=== PATIENT | male | born 1975 | race Caucasian/White ===

== ENCOUNTER 2021-03-17 23:15 | Inpatient (IN) ==
[2021-03-17] MEDS ORDERED: MULTI-VITAMIN INFUSION 10 ML, THIAMINE HCL 100 MG, FOLIC ACID 1 MG in SODIUM CHLORIDE 0... IV ONE (23:24)
--- NOTE | 2021-03-17 23:29 | Emergency Department Note ---
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 mg/ Folic Acid 1 mg/Sodium Chloride 1,011.2 mls @ 1,011.2 mls/hr IV .Q1H ONE Stop: 03/18/21 00:23 Last Infusion: 03/18/21 01:37 Dose: 0 mls/hr Documented by: [id number] Admin: 03/18/21 00:30 Dose: 1,011.2 mls/hr Documented by: [id number] Acetylcysteine 15,000 mg/ (Dextrose) 275 mls @ 200 mls/hr IV ONCE ONE Stop: 03/18/21 03:52 Last Infusion: 03/18/21 04:48 Dose: 0 mls/hr Documented by: [id number] Admin: 03/18/21 03:02 Dose: 200 mls/hr Documented by: [id number] Acetylcysteine 5,000 mg/ (Dextrose) 525 mls @ 125 mls/hr IV ONCE ONE Stop: 03/18/21 07:41 Last Infusion: 03/18/21 08:53 Dose: 0 mls/hr Documented by: [id number] Admin: 03/18/21 04:45 Dose: 125 mls/hr Documented by: [id number] Acetylcysteine 10,000 mg/ (Dextrose) 1,050 mls @ 62.5 mls/hr IV ONCE ONE Stop: 03/19/21 00:20 Last Infusion: 03/18/21 21:56 Dose: 0 mls/hr Documented by: [id number] Admin: 03/18/21 08:39 Dose: 62.5 mls/hr Documented by: [id number] Potassium Chloride 40 meq/ (Lactated Ringer's) 1,020 mls @ 150 mls/hr IV .Q6H48M ONE Stop: 03/18/21 09:51 Last Admin: 03/18/21 05:50 Dose: Not Given Documented by: [id number] Phytonadione 5 mg/ Sodium (Chloride) 50.5 mls @ 101 mls/hr IV ONE ONE Stop: 03/18/21 05:59 Last Infusion: 03/18/21 06:57 Dose: 0 mls/hr Documented by: [id number] Admin: 03/18/21 06:14 Dose: 101 mls/hr Documented by: [id number] Albumin Human (Albumin 25%) 12.5 gm in 50 mls @ 50 mls/hr IV Q1H ELIZABETH Stop: 03/18/21 07:44 Last Infusion: 03/18/21 08:53 Dose: 0 mls/hr Documented by: [id number] Admin: 03/18/21 07:46 Dose: 50 mls/hr Documented by: [id number] Infusion: 03/18/21 07:40 Dose: 50 mls/hr Documented by: [id number] Admin: 03/18/21 06:40 Dose: 50 mls/hr Documented by: [id number] Magnesium Sulfate/Dextrose (Magnesium Sulfate / D5w) 1 gm in 100 mls @ 50 mls/hr IV Q2H ELIZABETH Stop: 03/18/21 11:48 Last Infusion: 03/18/21 13:53 Dose: 0 mls/hr Documented by: [id number] Admin: 03/18/21 11:41 Dose: 50 mls/hr Documented by: [id number] Infusion: 03/18/21 11:41 Dose: 50 mls/hr Documented by: [id number] Admin: 03/18/21 09:45 Dose: 50 mls/hr Documented by: [id number] Infusion: 03/18/21 09:45 Dose: 50 mls/hr Documented by: [id number] Admin: 03/18/21 07:46 Dose: 50 mls/hr Documented by: [id number] Ceftriaxone Sodium 2,000 mg/ (Dextrose) 70 mls @ 140 mls/hr IV NOW ONE Stop: 03/18/21 06:59 Last Infusion: 03/18/21 07:46 Dose: 0 mls/hr Documented by: [id number] Admin: 03/18/21 07:16 Dose: 140 mls/hr Documented by: [id number] Albumin Human (Albumin 25%) 12.5 gm in 50 mls @ 50 mls/hr IV Q1H ELIZABETH Stop: 03/19/21 05:14 Last Infusion: 03/19/21 05:34 Dose: 0 mls/hr Documented by: [id number] Admin: 03/19/21 04:35 Dose: 50 mls/hr Documented by: [id number] Infusion: 03/19/21 04:35 Dose: 50 mls/hr Documented by: [id number] Admin: 03/19/21 03:57 Dose: 50 mls/hr Documented by: [id number] Ioversol (Optiray 320 100ml) 94 ml IV ONCE ONE Stop: 03/18/21 03:50 Last Admin: 03/18/21 03:49 Dose: 94 ml Documented by: [id number] Potassium Chloride (Potassium Chloride Crtab 20 Meq Tabcr) 40 meq PO NOW STA Stop: 03/18/21 03:47 Last Admin: 03/18/21 04:30 Dose: 40 meq Documented by: [id number] Discharge Plan Visit Data Chief Complaint: Illness Stated Complaint: ALCOHOL USE/LIVER FAILURE/COMBATIVE AT TIMES ED Provider: Vega Urbina Discharge Problem: Decompensated hepatic cirrhosis, Alcoholic hepatitis Patient Disposition: Admitted As Inpatient Discharge Instructions Interventions: ED Discharge Assessment Last Done: 03/18/21 05:46
[2021-03-17 23:49] LABS: Basophils # (auto) 0.08 K/uL (0-0.2); Basophils % (auto) 0.5 %; Eosinophils # (auto) 0.11 K/uL (0-0.5); Eosinophils % (auto) 0.7 %; Hematocrit (blood only) 38.5 % (42-52); Hemoglobin 13.5 g/dL (14.0-18.0); Immature Granulocytes # (auto) 0.06 K/uL (0.00-0.02); Immature Granulocytes % (auto) 0.4 %; Lymphocytes # (auto) 1.96 K/uL (1.2-3.4); Lymphocytes % (auto) 12.2 %; Mean Corpuscular Hemoglobin 33.8 pg (25-34); Mean Corpuscular Hgb Conc 35.1 g/dL (32-36); Mean Corpuscular Volume 96.5 fL (80-100); Mean Platelet Volume 11.6 fL (7.4-10.4); Monocytes # (auto) 2.46 K/uL (0.11-0.59); Monocytes % (auto) 15.3 %; Neutrophils # (auto) 11.38 K/uL (1.4-6.5); Neutrophils % (auto) 70.9 %; Platelet Count 190 K/uL (130-400); RDW Standard Deviation 73.7 fL (36.4-46.3); Red Blood Count 3.99 M/uL (4.7-6.1); White Blood Count 16.05 K/uL (4.8-10.8)
[2021-03-18 00:07] LABS: INR 1.7 (0.9-1.1); Partial Thromboplastin Ratio 1.6; Partial Thromboplastin Time 42.7 Seconds (21.0-31.0); Prothrombin Time 16.7 Seconds (9.0-12.0)
[2021-03-18 00:13] LABS: Alanine Aminotransferase 45 U/L (12-78); Albumin Level 1.9 gm/dl (3.4-5.0); Aspartate Aminotransferase 248 U/L (15-37); BUN Creatinine Ratio 5.5 (10-20); Blood Urea Nitrogen 4 mg/dl (7-18); Calcium 7.5 mg/dl (8.5-10.1); Carbon Dioxide 22 mmol/L (21-32); Chloride 95 mmol/L (98-107); Creatinine Clr Calc Pharmacy 153.2 ml/min; Est GFR (African American) 129.8 ml/min; Glucose 121 mg/dl (70-99); Lipase 457 U/L (73-393); Magnesium 1.4 mg/dl (1.8-2.4); Potassium 3.3 mmol/L (3.5-5.1); Sodium 130 mmol/L (136-145)
[2021-03-18 00:18] LABS: Anisocytosis Present; Pappenheimer Bodies 1+; Target Cells 1+
[2021-03-18 00:21] LABS: Alkaline Phosphatase 427 U/L (45-117); Total Protein 7.8 gm/dl (6.4-8.2); Troponin I < 0.015 ng/ml (0-0.045)
[2021-03-18 00:32] LABS: Bilirubin Direct 14.8 mg/dl (0-0.2)
[2021-03-18] MEDS ORDERED: AcetylCYSTEINE 15,000 MG in DEXTROSE 5% 200 ML IV ONE (02:28)
[2021-03-18] MEDS ORDERED: AcetylCYSTEINE IV 21 HR REGIMEN (>40KG) IV STA (02:28)
[2021-03-18 02:42] LABS: Appearance Urine Cloudy (Clear); Color Urine Brown; Specific Gravity Urine 1.014 (1.000-1.030)
[2021-03-18 02:44] LABS: Bacteria Urine 1+ (Negative); RBC Urine 0-4 /hpf (0-4)
[2021-03-18] MEDS ORDERED: POTASSIUM CHLORIDE 40 MEQ in LACTATED RINGER'S 1,000 ML IV ONE (03:04)
[2021-03-18] MEDS ORDERED: AcetylCYSTEINE 5,000 MG in DEXTROSE 5% 500 ML IV ONE (03:28)
[2021-03-18] MEDS ORDERED: POTASSIUM CHLORIDE CRTAB 20 MEQ TABCR PO STA (03:46)
--- NOTE | 2021-03-18 03:46 | History & Physical Report ---
Date of Service March 18, 2021 Assessment & Plan (1) Ascites: Plan: Possible SBP, possible sepsis Secondary to decompensated cirrhosis likely secondary to alcoholism (No prior knowledge of cirrhosis diagnosis as per patient. Patient claims he was told he just a fatty liver. ) Hyponatremia secondary to hypovolemia, alcohol use HTN, BP on the lower side history pancreatitis/pancreatic necrosis as per patient asthma, stable as per patient mood disorder, suboptimal although patient denies suicidality Anemia, possibly chronic (hemoglobin noted to be 13 last year) Coagulopathy from chronic liver disease Hypokalemia secondary to poor p.o. intake Hyperglycemia rule out DM past tobacco abuse Medical telemetry given propensity for alcohol withdrawal CS, check lactic acid, Ceftriaxone, albumin for possible SBP Diagnostic/therapeutic paracentesis GI consult Re: Ascites, decompensated cirrhosis Careful correction of sodium, hyponatremia work-up Hold patient's propranolol, decrease Amlodipine dose for now given episodic hypotension Replace potassium Check hemoglobin A1c ELMER S, DT precautions DVT prophylaxis with SCDs Re: Intermittent epistaxis Full code Patient requesting for referral to be updated of plan of care. Ms. Wendy Matute, contact #[phone]. Text document was generated using [facility] voice recognition software. It may contain grammatical or spelling errors. Kindly contact undersigned for clarification of any documentation item in question. History of Present Illness Chief Complaint: Abdominal pain/distention Primary Care Provider: [facility], [place], [place] History obtained from patient and records. Medical history significant for HTN, fatty liver as per patient, history pancreatitis/pancreatic necrosis as per patient, alcohol abuse, asthma, mood disorder, past tobacco abuse. Patient is a resident of [place] who is in town for the week with his girlfriend. 3 [facility] ER visits last year for alcoholic intoxication. 1 month history of increasing abdominal distention/fluid retention, intermittent achy abdominal pain/hiccuping, no fever, no chills. Alternating constipation/diarrhea. Skin noted to be yellow and urine noted to be orange by patient. Patient denies headache, chest pain, S OB. Intermittent epistaxis episodes at home. Patient denies black/bloody stools. Stool somewhat pale as per patient. Patient denies inordinate Tylenol intake. EMS summoned to patient's home because of increased agitation as per account. Patient brought to the ER for evaluation. GI specialist lightning protection installer recommended transfer to tertiary center for possible liver failure. [facility] [place] GI specialist recommended keeping patient at [facility] and treatment for possible acetaminophen toxicity. Acetadote protocol initiated at the ER. 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 Allergies Allergy/AdvReac Type Severity Reaction Status Date / Time morphine AdvReac Unknown Verified 02/08/20 06:21 Home Medications Medication Instructions Recorded Confirmed Type amlodipine 10 mg tablet 10 mg PO DAILY 02/08/20 03/17/21 History benzonatate 100 mg capsule 100 mg PO TID PRN 02/08/20 03/17/21 History bupropion HCl (smoking deter) 150 150 mg PO BID 02/08/20 03/17/21 History mg tablet,12 hr sustained-release(smoking deterrent) buspirone 30 mg tablet 30 mg PO TID 02/08/20 03/17/21 History gabapentin 400 mg capsule 400 mg PO TID 02/08/20 03/17/21 History montelukast 10 mg tablet 10 mg PO HS 02/08/20 03/17/21 History thiamine HCl (vitamin B1) 100 mg 100 mg PO DAILY 02/08/20 03/17/21 History tablet albuterol sulfate 90 mcg/actuation 1 puff INHALATION Q6 PRN 03/17/21 03/17/21 History aerosol inhaler cetirizine 10 mg tablet 10 mg PO DAILY 03/17/21 03/17/21 History cholecalciferol (vitamin D3) 50 50 mcg PO DAILY 03/17/21 03/17/21 History mcg (2,000 unit) capsule cyanocobalamin (vitamin B-12) 100 100 mcg PO DAILY 03/17/21 03/17/21 History mcg tablet cyclobenzaprine 10 mg tablet 10 mg PO Q8 PRN 03/17/21 03/17/21 History fluticasone 250 mcg-salmeterol 50 1 ea INHALATION Q12 03/17/21 03/17/21 History mcg/dose blistr powdr for inhalation fluticasone propionate 50 2 spray INTRANASAL DAILY 03/17/21 03/17/21 History mcg/actuation nasal spray,suspension folic acid 1 mg tablet 1 mg PO DAILY 03/17/21 03/17/21 History hydroxyzine pamoate 50 mg capsule 50 mg PO TID 03/17/21 03/17/21 History magnesium oxide 400 mg (241.3 mg 400 mg PO BID 03/17/21 03/17/21 History magnesium) tablet mirtazapine 15 mg tablet 15 mg PO HS 03/17/21 03/17/21 History multivitamin (Daily-Ricci) 1 tab PO DAILY 03/17/21 03/17/21 History pantoprazole 40 mg tablet,delayed 40 mg PO DAILY 03/17/21 03/17/21 History release propranolol 10 mg tablet 10 mg PO DAILY 03/17/21 03/17/21 History Past Med/Surg History Medical History (Updated 03/18/21 @ 08:16 by Arpan Elmore MD) Anxiety Asthma Depression History of coma History of pneumonia Pancreatic necrosis Social History Smoking Status: Unknown if ever smoked Tobacco Type: Cigarettes Hx Alcohol Use: Yes Alcohol type: beer and hard liquor Preferred Language: Serbian Communication Ability: Effective Sap Bi Developer Required: No Beliefs That Will Affect Care: None Current Living Situation: Significant Other Current Living Situation Comment: Lives w/ significant other Feels Safe at Home: Yes Safety Concerns: Feels Safe At This Time Assistive Devices: None Review of Systems Review of Systems: As per HPI, all 10 systems reviewed, all other ROS negative Physical Exam Physical Exam: GENERAL: Slightly uncomfortable, pleasant, obese, episodic hiccuping, alcoholic fetor, no respiratory distress SKIN: Jaundice,, warm, abrasions over upper and lower extremities HEENT: Pale palpebral conjunctivae, no ptosis, dry buccal mucosa NECK : Supple, short neck, no tenderness CHEST : Decreased breath sounds,, no tenderness HEART : RRR, no obvious murmurs ABDOMEN: distention, fluid wave, central abdominal tenderness EXTREMITIES : Minimal LE swelling, no LE tenderness, no other conspicuous deformities noted NEUROLOGIC : Coherent, no facial asymmetry, no other gross focality Results & Data Results & Data ([facility]) Vital Signs (Past 12 Hours) Vital Signs Temp Pulse Resp BP Pulse Ox 03/18/21 02:00 71 23 115/77 93 03/18/21 00:30 71 22 114/82 94 03/18/21 00:25 97 03/17/21 23:18 36.5 C 74 17 118/91 91 Laboratory Results Laboratory Results WBC 16.05 K/uL (4.8-10.8) H 03/17/21 23:32 RBC 3.99 M/uL (4.7-6.1) L 03/17/21 23:32 Hgb 13.5 g/dL (14.0-18.0) L 03/17/21 23:32 Hct 38.5 % (42-52) L 03/17/21 23:32 MCV 96.5 fL (80-100) 03/17/21 23:32 MCH 33.8 pg (25-34) 03/17/21 23: MCHC 35.1 g/dL (32-36) 03/17/21 23: RDW Std Deviation 73.7 fL (36.4-46.3) H 03/17/21 23:32 RDW Coeff of Bulmaro 21.0 % (11.5-14.5) H 03/17/21 23:32 Plt Count 190 K/uL (130-400) 03/17/21 23:32 MPV 11.6 fL (7.4-10.4) H 03/17/21 23:32 Immature Gran % (Auto) 0.4 % 03/17/21 23:32 Neut % (Auto) 70.9 % 03/17/21 23:32 Lymph % (Auto) 12.2 % 03/17/21 23:32 [place] % (Auto) 15.3 % 03/17/21 23:32 Eos % (Auto) 0.7 % 03/17/21 23:32 Baso % (Auto) 0.5 % 03/17/21 23:32 Neut # (Auto) 11.38 K/uL (1.4-6.5) H 03/17/21 23:32 Lymph # (Auto) 1.96 K/uL (1.2-3.4) 03/17/21 23:32 [place] # (Auto) 2.46 K/uL (0.11-0.59) H 03/17/21 23:32 Eos # (Auto) 0.11 K/uL (0-0.5) 03/17/21 23:32 Baso # (Auto) 0.08 K/uL (0-0.2) 03/17/21 23:32 Immature Gran # (Auto) 0.06 K/uL (0.00-0.02) H 03/17/21 23:32 Anisocytosis Present 03/17/21 23:32 Pappenheimer Bodies 1+ 03/17/21 23:32 Target Cells 1+ 03/17/21 23:32 PT 16.7 Seconds (9.0-12.0) H 03/17/21 23:32 INR 1.7 (0.9-1.1) H 03/17/21 23:32 APTT 42.7 Seconds (21.0-31.0) H 03/17/21 23:32 PTT Ratio 1.6 03/17/21 23:32 Sodium 130 mmol/L (136-145) L 03/17/21 23:32 Potassium 3.3 mmol/L (3.5-5.1) L 03/17/21 23:32 Chloride 95 mmol/L (98-107) L 03/17/21 23:32 Carbon Dioxide 22 mmol/L (21-32) 03/17/21 23:32 Anion Gap 13.0 (3-11) H 03/17/21 23:32 BUN 4 mg/dl (7-18) L 03/17/21 23:32 Creatinine 0.73 mg/dl (0.6-1.4) 03/17/21 23:32 Est Cr Clr Drug Dosing 153.2 ml/min 03/17/21 23:32 Est GFR ( Amer) 129.8 ml/min 03/17/21 23:32 Est GFR (Non-Af Amer) 112.0 ml/min 03/17/21 23:32 BUN/Creatinine Ratio 5.5 (10-20) L 03/17/21 23:32 Glucose 121 mg/dl (70-99) H 03/17/21 23:32 Osmolality 355 mOsm/kg (280-300) H* 03/17/21 23:32 Calcium 7.5 mg/dl (8.5-10.1) L 03/17/21 23:32 Magnesium 1.4 mg/dl (1.8-2.4) L 03/17/21 23:32 Total Bilirubin 19.0 mg/dl (0.2-1) H 03/17/21 23:32 Direct Bilirubin 14.8 mg/dl (0-0.2) H 03/17/21 23:32 AST 248 U/L (15-37) H 03/17/21 23:32 ALT 45 U/L (12-78) 03/17/21 23:32 Alkaline Phosphatase 427 U/L (45-117) H 03/17/21 23:32 Ammonia 22.3 umol/L (11-32) 03/17/21 23:39 Troponin I < 0.015 ng/ml (0-0.045) 03/17/21 23:32 Total Protein 7.8 gm/dl (6.4-8.2) 03/17/21 23:32 Albumin 1.9 gm/dl (3.4-5.0) L 03/17/21 23:32 Lipase 457 U/L (73-393) H 03/17/21 23:32 Urine Color Brown 03/18/21 02:20 Urine Appearance Cloudy (Clear) A 03/18/21 02:20 Urine pH (4.5-7.5) 03/18/21 02:20 Ur Specific [place] 1.014 (1.000-1.030) 03/18/21 02:20 Urine Protein (Negative) 03/18/21 02:20 Urine Glucose (UA) (Negative) 03/18/21 02:20 Urine Ketones (Negative) 03/18/21 02:20 Urine Blood (Negative) 03/18/21 02:20 Urine Nitrite (Negative) 03/18/21 02:20 Urine Bilirubin (Negative) 03/18/21 02:20 Urine Urobilinogen (Negative) 03/18/21 02:20 Ur Leukocyte Esterase (Negative) 03/18/21 02:20 Urine RBC 0-4 /hpf (0-4) 03/18/21 02:20 Urine WBC 10-30 /hpf (0-5) H 03/18/21 02:20 Ur Epithelial Cells 10-20 /lpf (0-5) H 03/18/21 02:20 Urine Bacteria 1+ (Negative) H 03/18/21 02:20 Salicylates Cancelled 03/17/21 23:32 Acetaminophen Cancelled 03/17/21 23:32 Ethyl Alcohol mg/dL 348.1 mg/dl (0-3) H 03/17/21 23:32 COVID-19 Eval Order Covid19 at [facility] 03/18/21 00:30 SARS-CoV-2 (PCR) NEGATIVE (Negative) 03/18/21 00:30 Diagnostic Findings Chest x-ray as per my interpretation cardiomegaly, atelectasis CT abdomen pelvis initial read: Enlarged, fattyliver, somewhat nodular contour. Correlate for cirrhosis. Moderate amount of ascites. 3.5 cmheterogeneous pancreatic tail nodule. Correlate with priors if available or consider pancreatic protocol MR. Mildlyenlarged upper abdominal lymph nodes. Normal appendix. Colonicwall thickening of the cecumand ascending colon. Mayrepresent colitis. Colonic diverticulosis. Querywall thickening of the duodenum. Mayrepresent duodenitis. Small hiatal hernia. No free air EKG as per my interpretation: Rate 70, NSR, LAD, LAFB, T wave abnormalities inferior leads
[2021-03-18] MEDS ORDERED: OPTIRAY 320 100ml IV ONE (03:49)
[2021-03-18 05:07] LABS: Amphetamines+Metham, Urine Neg (Neg); Barbiturates, Urine Neg (Neg); Benzodiazepine, Urine Neg (Neg); Cocaine, Urine Neg (Neg); MDMA (Ecstacy), Urine Pos (Neg); Methadone, Urine Neg (Neg); Opiate, Urine Neg (Neg); Phencyclidine, Urine Neg (Neg)
[2021-03-18] MEDS ORDERED: cefTRIAXone SODIUM 1,000 MG/50 ML BAG IV STA (05:23)
[2021-03-18] MEDS ORDERED: PHYTONADIONE 5 MG in SODIUM CHLORIDE 0.9% 50 ML IV ONE (05:30)
[2021-03-18] MEDS ORDERED: LORazepam 1 MG/2 ML VIAL IV PRN (05:49)
[2021-03-18] MEDS ORDERED: ATIVAN IV ALCOHOL WITHDRAWL IV PRN (05:49)
[2021-03-18] MEDS ORDERED: oxyCODONE HCL IR 5 MG TAB (IMMEDIATE RELEASE) PO PRN (05:49)
[2021-03-18] MEDS ORDERED: PROMETHAZINE HCL 12.5 MG in SODIUM CHLORIDE 0.9% 50 ML IV PRN (05:49)
[2021-03-18] MEDS ORDERED: LORazepam 3 MG/6 ML VIAL IV PRN (05:49)
[2021-03-18] MEDS ORDERED: cefTRIAXone SODIUM 2,000 MG in DEXTROSE 5% 50 ML IV ONE (06:30)
[2021-03-18] MEDS: ALBUMIN 25% 12.5 GM/50 ML VIAL IV SCH ×4 (06:40→17:09)
[2021-03-18 07:23] LABS: Basophils # (auto) 0.04 K/uL (0-0.2); Basophils % (auto) 0.4 %; Eosinophils # (auto) 0.05 K/uL (0-0.5); Eosinophils % (auto) 0.5 %; Hematocrit (blood only) 40.5 % (42-52); Hemoglobin 14.3 g/dL (14.0-18.0); Immature Granulocytes # (auto) 0.04 K/uL (0.00-0.02); Immature Granulocytes % (auto) 0.4 %; Lymphocytes # (auto) 1.16 K/uL (1.2-3.4); Lymphocytes % (auto) 10.8 %; Mean Corpuscular Hemoglobin 34.3 pg (25-34); Mean Corpuscular Hgb Conc 35.3 g/dL (32-36); Mean Corpuscular Volume 97.1 fL (80-100); Mean Platelet Volume 11.5 fL (7.4-10.4); Monocytes # (auto) 1.26 K/uL (0.11-0.59); Monocytes % (auto) 11.7 %; Neutrophils # (auto) 8.18 K/uL (1.4-6.5); Neutrophils % (auto) 76.2 %; Platelet Count 167 K/uL (130-400); RDW Coefficient of Variation 20.9 % (11.5-14.5); RDW Standard Deviation 73.1 fL (36.4-46.3); Red Blood Count 4.17 M/uL (4.7-6.1); White Blood Count 10.73 K/uL (4.8-10.8)
[2021-03-18] MEDS ORDERED: AcetylCYSTEINE 10,000 MG in DEXTROSE 5% 1,000 ML IV ONE (07:28)
[2021-03-18] MEDS: MAGNESIUM SULFATE / D5W 1 GM/100 ML BAG IV SCH ×3 (07:46→11:41)
[2021-03-18 07:56] LABS: Anisocytosis Present; Target Cells 1+
[2021-03-18] MEDS: FLUTICASONE PROPIONATE NA SPR 16 GM BTL SCH (07:57)
[2021-03-18] MEDS: FLUTICASONE/VILANTEROL 200/25MCG 14 PUFFS/INHALER INH SCH (07:57)
[2021-03-18] MEDS: amLODIPine BESYLATE 5 MG TAB PO SCH (07:57)
[2021-03-18] MEDS: busPIRone 15 MG TAB PO SCH ×3 (07:58→19:51)
[2021-03-18] MEDS: CYANOCOBALAMIN (VITAMIN B-12) 100 MCG TABLET PO SCH (07:58)
[2021-03-18] MEDS: GABAPENTIN 400 MG CAP PO SCH ×3 (07:58→19:51)
[2021-03-18] MEDS: FOLIC ACID 1 MG TAB PO SCH (07:58)
[2021-03-18] MEDS: CETIRIZINE HCL 10 MG TABLET PO SCH (07:58)
[2021-03-18] MEDS: MULTIVITAMIN TAB PO SCH (07:59)
[2021-03-18] MEDS: THIAMINE HCL 100 MG TAB PO SCH (07:59)
[2021-03-18] MEDS: buPROPion SR 150 MG TABCR PO SCH ×2 (07:59→19:51)
[2021-03-18] MEDS: PANTOprazole 40 MG TAB PO SCH (07:59)
[2021-03-18 08:06] LABS: Alanine Aminotransferase 58 U/L (12-78); Albumin Level 2.1 gm/dl (3.4-5.0); Alkaline Phosphatase 401 U/L (45-117); Aspartate Aminotransferase 251 U/L (15-37); Bilirubin,Total 20.9 mg/dl (0.2-1); Blood Urea Nitrogen 4 mg/dl (7-18); Calcium 7.9 mg/dl (8.5-10.1); Carbon Dioxide 24 mmol/L (21-32); Chloride 96 mmol/L (98-107); Glucose 123 mg/dl (70-99); Sodium 135 mmol/L (136-145)
--- NOTE | 2021-03-18 08:16 | CT Scan Report ---
ABDOMEN AND PELVIS CT WITH IV CONTRAST CT DOSE: 1155.35 mGy.cm HISTORY: Generalized abd pain/distension TECHNIQUE: Multiaxial CT images of the abdomen and pelvis were performed following the use of intrave nous contrast. A dose lowering technique was utilized adhering to the principles of ALARA. COMPARISON STUDY: None. FINDINGS: Small fat-containing left femoral hernia. The bladder is distended. The prostate gland is m ildly enlarged. Small amount of ascites. Enlarged and fatty liver. Nodular contour to the liver consi stent with mild cirrhosis. No hepatic or splenic masses. The gallbladder, adrenal glands, and kidneys are unremarkable. The main portal vein is patent. Normal caliber abdominal aorta. A few colonic dive rticula. No evidence for acute diverticulitis. No definite bowel wall thickening or obstruction. Ques tion mild edema within the ascending colon is likely due to portal colopathy. Normal appendix. There is a 3.7 cm heterogeneous pancreatic tail lesion. A few bibasilar linear densities consistent with wolfe bsegmental atelectasis. No pneumoperitoneum. No pneumatosis. No fractures within the visualized osseo us structures. IMPRESSION: 1. Enlarged fatty liver with mild cirrhosis. 2. Small amount of ascites. 3. A 3.7 cm heterogeneous pancreatic tail lesion. Follow-up pancreatic MRI with contrast recommended for further evaluation. 4. Mild edema within the proximal colon which is nonspecific but suggests a portal colopathy. Infecti ous or inflammatory colitis is considered less likely but not entirely excluded. ACT 112: Negative or not required by law. Electronically signed by: Angel Servin M.D. 03/18/2021 8:15 AM
[2021-03-18] MEDS ORDERED: amLODIPine BESYLATE 5 MG TAB PO SCH (09:00)
--- NOTE | 2021-03-18 09:51 | XRay Report ---
XR chest 1V portable HISTORY: 45 years-old Male alcoholism COMPARISON: Chest radiograph 02/07/2020, CT abdomen and pelvis 03/18/2021 TECHNIQUE: Supine AP view of the chest FINDINGS: The cardiac silhouette is enlarged. Moderate right hemidiaphragmatic elevation. No pneumothorax, pleu ral effusion or overt pulmonary edema. Mild linear right lung base atelectasis/scarring. Sigmoidal th oracolumbar scoliosis. Degenerative changes of the shoulders and spine. IMPRESSION: 1. Cardiomegaly without pulmonary edema. 2. Right hemidiaphragmatic elevation with linear right lung base atelectasis. ACT 112: Negative or not required by law. The above report was generated using voice recognition software. It may contain grammatical, syntax o r spelling errors. Electronically signed by: Dav Cho M.D. 03/18/2021 9:49 AM
--- NOTE | 2021-03-18 09:58 | Electrocardiogram Report ---
Test Reason : Blood Pressure : / mmHG Vent. Rate : 071 BPM Atrial Rate : 071 BPM P-R Int : 206 ms QRS Dur : 116 ms QT Int : 486 ms P-R-T Axes : 036 -13 -05 degrees QTc Int : 528 ms Poor data quality, interpretation may be adversely affected Normal sinus rhythm Possible Left atrial enlargement Nonspecific ST and T wave abnormality Prolonged QT Abnormal ECG When compared with ECG of 16-AUG-2019 13:03, Vent. rate has decreased BY 36 BPM T wave inversion now evident in Inferior leads QT has lengthened Confirmed by José Miguel Cardenas ([id number]) on 03/18/2021 9:58:21 AM Referred By: REFERRED SELF Confirmed By:José Miguel Cardenas
[2021-03-18] MEDS: LORazepam 2 MG/4 ML VIAL IV PRN ×5 (14:44→21:58)
--- NOTE | 2021-03-18 15:14 | Gastrointestinal Consultation ---
Date of Consultation March 18, 2021 Assessment & Plan (1) Decompensated hepatic cirrhosis: MDF = 42. Ideally would treat with Prednisone however there is a concern about SBP in view of small ascites and abdominal discomfort, unfortunately he was started on IV ABx and did not have a diagnostic paracentesis. Please arrange for a diagnostic tap tomorrow. If normal, may consider starting Prednisolone. Monitor INR, if >2 then give PO Vitamin K x 3 days. Needs EUS as OP in 4 weeks to evaluate the panc lesion however this is likely a WON/necroma related to prior pancreatitis. Complete NAC. Nutritional support. Alcohol cessation.Thiamin and folic acid. (2) Alcoholic hepatitis: (3) Abnormal LFTs: (4) Pancreatic mass: History of Present Illness Reason for Consultation: Alcoholic hepatitis Attending Physician: Yeyo Fox MD History of Present Illness 45 years old male patient with chronic heavy alcohol use for many years presented with alcohol intoxication and found to have elevated LFTs hence GI consulted. He reports gradual increase in abdominal distention recently along with mild abdominal discomfort. No fever or chills, no nausea, vomiting, diarrhea or constipation, no rectal bleeding. Had Hx of necrotizing pancreatitis in the past. He had altered mental status upon arrival to the ED with agitation, unclear if this was related to intoxication or withdrawal or ongoing acute liver failure, he was given Ativan and he improved. He was not accepted for transfer to a liver center. Allergies Allergy/AdvReac Type Severity Reaction Status Date / Time morphine AdvReac Unknown Verified 02/08/20 06:21 Home Medications Medication Instructions Recorded Confirmed Type amlodipine 10 mg tablet 10 mg PO DAILY 02/08/20 03/17/21 History benzonatate 100 mg capsule 100 mg PO TID PRN 02/08/20 03/17/21 History bupropion HCl (smoking deter) 150 150 mg PO BID 02/08/20 03/17/21 History mg tablet,12 hr sustained-release(smoking deterrent) buspirone 30 mg tablet 30 mg PO TID 02/08/20 03/17/21 History gabapentin 400 mg capsule 400 mg PO TID 02/08/20 03/17/21 History montelukast 10 mg tablet 10 mg PO HS 02/08/20 03/17/21 History thiamine HCl (vitamin B1) 100 mg 100 mg PO DAILY 02/08/20 03/17/21 History tablet albuterol sulfate 90 mcg/actuation 1 puff INHALATION Q6 PRN 03/17/21 03/17/21 History aerosol inhaler cetirizine 10 mg tablet 10 mg PO DAILY 03/17/21 03/17/21 History cholecalciferol (vitamin D3) 50 50 mcg PO DAILY 03/17/21 03/17/21 History mcg (2,000 unit) capsule cyanocobalamin (vitamin B-12) 100 100 mcg PO DAILY 03/17/21 03/17/21 History mcg tablet cyclobenzaprine 10 mg tablet 10 mg PO Q8 PRN 03/17/21 03/17/21 History fluticasone 250 mcg-salmeterol 50 1 ea INHALATION Q12 03/17/21 03/17/21 History mcg/dose blistr powdr for inhalation fluticasone propionate 50 2 spray INTRANASAL DAILY 03/17/21 03/17/21 History mcg/actuation nasal spray,suspension folic acid 1 mg tablet 1 mg PO DAILY 03/17/21 03/17/21 History hydroxyzine pamoate 50 mg capsule 50 mg PO TID 03/17/21 03/17/21 History magnesium oxide 400 mg (241.3 mg 400 mg PO BID 03/17/21 03/17/21 History magnesium) tablet mirtazapine 15 mg tablet 15 mg PO HS 03/17/21 03/17/21 History multivitamin (Daily-Ricci) 1 tab PO DAILY 03/17/21 03/17/21 History pantoprazole 40 mg tablet,delayed 40 mg PO DAILY 03/17/21 03/17/21 History release propranolol 10 mg tablet 10 mg PO DAILY 03/17/21 03/17/21 History Patient History Medical History (Updated 03/18/21 @ 15:21 by Jeannette Stark MD) Anxiety Asthma Depression History of coma History of pneumonia Pancreatic necrosis Social History Smoking Status: Unknown if ever smoked Tobacco Type: Cigarettes Hx Alcohol Use: Yes Alcohol type: beer and hard liquor Preferred Language: Irish Communication Ability: Effective Unpaid Intern Required: No Beliefs That Will Affect Care: None Current Living Situation: Significant Other Current Living Situation Comment: Lives w/ significant other Feels Safe at Home: Yes Safety Concerns: Feels Safe At This Time Assistive Devices: None Review of Systems Constitutional: no fever, no chills, no fatigue and no weight loss Eyes: no eye pain and no worsening vision Ear, Nose, Mouth, Throat: no tinnitus, no dizziness, no nasal discharge and no epistaxis Respiratory: no cough, no dyspnea, no dyspnea on exertion and no wheezing Cardiovascular: no chest pain, no orthopnea, no palpitations and no edema Gastrointestinal: as per Subjective / HPI Musculoskeletal: no stiffness and no myalgia Neurologic: no localized weakness, no paralysis, no tremor(s) and no headache(s) Endocrine: no polydipsia and no polyuria Hematologic / Lymphatic: no easy bleeding and no night sweats Physical Exam Constitutional: + well hydrated, cooperative and comfortable Eyes: + scleral icterus ENMT: external ear and nose normal, oropharynx normal Neck: normal visual inspection and trachea midline Respiratory: normal respiratory effort, lungs clear to auscultation Auscultation: no wheezes Cardiovascular: RRR, no murmur, no edema Gastrointestinal (Abdomen): Inspection/Auscultation: + abdomen distended and normal bowel sounds Percussion/Palpation: abdomen nontender Musculoskeletal: no cyanosis or clubbing, extremities motor strength 5/5 Skin: no rashes, warm and dry Neurologic: awake; no focal motor deficits Motor/Sensory: no tremor Results & Data ([facility]) Vital Signs (Past 12 Hours) Vital Signs Temp Pulse Pulse Resp BP BP BP 03/18/21 14:49 37 C 105 H 18 110/69 03/18/21 12:07 36.4 C L 81 20 113/74 03/18/21 07:23 83 03/18/21 06:16 37 C 83 18 132/89 03/18/21 05:49 37 C 83 16 132/89 03/18/21 05:47 83 03/18/21 05:00 106/82 03/18/21 04:30 81 24 124/91 03/18/21 03:31 72 28 H 94/69 L Pulse Ox 03/18/21 14:49 94 03/18/21 12:07 93 03/18/21 07:23 03/18/21 06:16 94 03/18/21 05:49 94 03/18/21 05:47 03/18/21 05:00 92 03/18/21 04:30 93 03/18/21 03:31 97 Laboratory Results Laboratory Results - last 24 hr 03/17/21 03/17/21 03/17/21 23:32 23:32 23:32 WBC 16.05 H RBC 3.99 L Hgb 13.5 L Hct 38.5 L MCV 96.5 MCH 33.8 MCHC 35.1 RDW Std Deviation 73.7 H RDW Coeff of Bulmaro 21.0 H Plt Count 190 MPV 11.6 H Immature Gran % (Auto) 0.4 Neut % (Auto) 70.9 Lymph % (Auto) 12.2 [place] % (Auto) 15.3 Eos % (Auto) 0.7 Baso % (Auto) 0.5 Neut # (Auto) 11.38 H Lymph # (Auto) 1.96 [place] # (Auto) 2.46 H Eos # (Auto) 0.11 Baso # (Auto) 0.08 Immature Gran # (Auto) 0.06 H Anisocytosis Present Pappenheimer Bodies 1+ Target Cells 1+ PT 16.7 H INR 1.7 H APTT 42.7 H PTT Ratio 1.6 Sodium 130 L Potassium 3.3 L Chloride 95 L Carbon Dioxide 22 Anion Gap 13.0 H BUN 4 L Creatinine 0.73 Est Cr Clr Drug Dosing 153.2 Est GFR ( Amer) 129.8 Est GFR (Non-Af Amer) 112.0 BUN/Creatinine Ratio 5.5 L Glucose 121 H Estimat Average Glucose Hemoglobin A1c Osmolality Lactate Calcium 7.5 L Magnesium 1.4 L Total Bilirubin 19.0 H Direct Bilirubin 14.8 H AST 248 H ALT 45 Alkaline Phosphatase 427 H Ammonia Troponin I < 0.015 Total Protein 7.8 Albumin 1.9 L Globulin Albumin/Globulin Ratio Lipase 457 H TSH 1.850 Urine Color Urine Appearance Urine pH Ur Specific Bangs Urine Protein Urine Glucose (UA) Urine Ketones Urine Blood Urine Nitrite Urine Bilirubin Urine Urobilinogen Ur Leukocyte Esterase Urine RBC Urine WBC Ur Epithelial Cells Urine Bacteria Urine Osmolality Ur Random Sodium Salicylates Urine Opiates Screen Ur Methadone, Qual Acetaminophen Urine Barbiturates Ur Phencyclidine (PCP) U Amphetamin/Meth Scrn Urine MDEA MDMA (Ecstasy) Screen MDMA Urine MDMA U Benzodiazepines Scrn Ur Cocaine Metabolite U Marijuana (THC) Screen Ethyl Alcohol mg/dL COVID-19 Eval Order SARS-CoV-2 (PCR) Miscellaneous Test Miscellaneous Test 2 03/17/21 03/17/21 03/17/21 23:32 23:32 23:32 WBC RBC Hgb Hct MCV MCH MCHC RDW Std Deviation RDW Coeff of Bulmaro Plt Count MPV Immature Gran % (Auto) Neut % (Auto) Lymph % (Auto) [place] % (Auto) Eos % (Auto) Baso % (Auto) Neut # (Auto) Lymph # (Auto) [place] # (Auto) Eos # (Auto) Baso # (Auto) Immature Gran # (Auto) Anisocytosis Pappenheimer Bodies Target Cells PT INR APTT PTT Ratio Sodium Potassium Chloride Carbon Dioxide Anion Gap BUN Creatinine Est Cr Clr Drug Dosing Est GFR ( Amer) Est GFR (Non-Af Amer) BUN/Creatinine Ratio Glucose Estimat Average Glucose Hemoglobin A1c Osmolality 355 H* Lactate Calcium Magnesium Total Bilirubin Direct Bilirubin AST ALT Alkaline Phosphatase Ammonia Troponin I Total Protein Albumin Globulin Albumin/Globulin Ratio Lipase TSH Urine Color Urine Appearance Urine pH Ur Specific Bangs Urine Protein Urine Glucose (UA) Urine Ketones Urine Blood Urine Nitrite Urine Bilirubin Urine Urobilinogen Ur Leukocyte Esterase Urine RBC Urine WBC Ur Epithelial Cells Urine Bacteria Urine Osmolality Ur Random Sodium Salicylates Cancelled Urine Opiates Screen Ur Methadone, Qual Acetaminophen Cancelled Urine Barbiturates Ur Phencyclidine (PCP) U Amphetamin/Meth Scrn Urine MDEA MDMA (Ecstasy) Screen MDMA Urine MDMA U Benzodiazepines Scrn Ur Cocaine Metabolite U Marijuana (THC) Screen Ethyl Alcohol mg/dL 348.1 H COVID-19 Eval Order SARS-CoV-2 (PCR) Miscellaneous Test Miscellaneous Test 2 03/17/21 03/18/21 03/18/21 23:39 00:30 00:30 WBC RBC Hgb Hct MCV MCH MCHC RDW Std Deviation RDW Coeff of Bulmaro Plt Count MPV Immature Gran % (Auto) Neut % (Auto) Lymph % (Auto) [place] % (Auto) Eos % (Auto) Baso % (Auto) Neut # (Auto) Lymph # (Auto) [place] # (Auto) Eos # (Auto) Baso # (Auto) Immature Gran # (Auto) Anisocytosis Pappenheimer Bodies Target Cells PT INR APTT PTT Ratio Sodium Potassium Chloride Carbon Dioxide Anion Gap BUN Creatinine Est Cr Clr Drug Dosing Est GFR ( Amer) Est GFR (Non-Af Amer) BUN/Creatinine Ratio Glucose Estimat Average Glucose Hemoglobin A1c Osmolality Lactate Calcium Magnesium Total Bilirubin Direct Bilirubin AST ALT Alkaline Phosphatase Ammonia 22.3 Troponin I Total Protein Albumin Globulin Albumin/Globulin Ratio Lipase TSH Urine Color Urine Appearance Urine pH Ur Specific Bangs Urine Protein Urine Glucose (UA) Urine Ketones Urine Blood Urine Nitrite Urine Bilirubin Urine Urobilinogen Ur Leukocyte Esterase Urine RBC Urine WBC Ur Epithelial Cells Urine Bacteria Urine Osmolality Ur Random Sodium Salicylates Urine Opiates Screen Ur Methadone, Qual Acetaminophen Urine Barbiturates Ur Phencyclidine (PCP) U Amphetamin/Meth Scrn Urine MDEA MDMA (Ecstasy) Screen MDMA Urine MDMA U Benzodiazepines Scrn Ur Cocaine Metabolite U Marijuana (THC) Screen Ethyl Alcohol mg/dL COVID-19 Eval Order Covid19 at [facility] SARS-CoV-2 (PCR) NEGATIVE Miscellaneous Test Miscellaneous Test 2 03/18/21 03/18/21 03/18/21 02:20 02:20 02:20 WBC RBC Hgb Hct MCV MCH MCHC RDW Std Deviation RDW Coeff of Bulmaro Plt Count MPV Immature Gran % (Auto) Neut % (Auto) Lymph % (Auto) [place] % (Auto) Eos % (Auto) Baso % (Auto) Neut # (Auto) Lymph # (Auto) [place] # (Auto) Eos # (Auto) Baso # (Auto) Immature Gran # (Auto) Anisocytosis Pappenheimer Bodies Target Cells PT INR APTT PTT Ratio Sodium Potassium Chloride Carbon Dioxide Anion Gap BUN Creatinine Est Cr Clr Drug Dosing Est GFR ( Amer) Est GFR (Non-Af Amer) BUN/Creatinine Ratio Glucose Estimat Average Glucose Hemoglobin A1c Osmolality Lactate Calcium Magnesium Total Bilirubin Direct Bilirubin AST ALT Alkaline Phosphatase Ammonia Troponin I Total Protein Albumin Globulin Albumin/Globulin Ratio Lipase TSH Urine Color Brown Urine Appearance Cloudy A Urine pH Ur Specific Bangs 1.014 Urine Protein Urine Glucose (UA) Urine Ketones Urine Blood Urine Nitrite Urine Bilirubin Urine Urobilinogen Ur Leukocyte Esterase Urine RBC 0-4 Urine WBC 10-30 H Ur Epithelial Cells 10-20 H Urine Bacteria 1+ H Urine Osmolality 388 L Ur Random Sodium < 5 Salicylates Urine Opiates Screen Ur Methadone, Qual Acetaminophen Urine Barbiturates Ur Phencyclidine (PCP) U Amphetamin/Meth Scrn Urine MDEA MDMA (Ecstasy) Screen MDMA Urine MDMA U Benzodiazepines Scrn Ur Cocaine Metabolite U Marijuana (THC) Screen Ethyl Alcohol mg/dL COVID-19 Eval Order SARS-CoV-2 (PCR) Miscellaneous Test Miscellaneous Test 2 03/18/21 03/18/21 03/18/21 02:20 02:20 05:00 WBC RBC Hgb Hct MCV MCH MCHC RDW Std Deviation RDW Coeff of Bulmaro Plt Count MPV Immature Gran % (Auto) Neut % (Auto) Lymph % (Auto) [place] % (Auto) Eos % (Auto) Baso % (Auto) Neut # (Auto) Lymph # (Auto) [place] # (Auto) Eos # (Auto) Baso # (Auto) Immature Gran # (Auto) Anisocytosis Pappenheimer Bodies Target Cells PT INR APTT PTT Ratio Sodium Potassium Chloride Carbon Dioxide Anion Gap BUN Creatinine Est Cr Clr Drug Dosing Est GFR ( Amer) Est GFR (Non-Af Amer) BUN/Creatinine Ratio Glucose Estimat Average Glucose Hemoglobin A1c Osmolality Lactate Calcium Magnesium Total Bilirubin Direct Bilirubin AST ALT Alkaline Phosphatase Ammonia Troponin I Total Protein Albumin Globulin Albumin/Globulin Ratio Lipase TSH Urine Color Urine Appearance Urine pH Ur Specific Bangs Urine Protein Urine Glucose (UA) Urine Ketones Urine Blood Urine Nitrite Urine Bilirubin Urine Urobilinogen Ur Leukocyte Esterase Urine RBC Urine WBC Ur Epithelial Cells Urine Bacteria Urine Osmolality Ur Random Sodium Salicylates Cancelled Urine Opiates Screen Neg Ur Methadone, Qual Neg Acetaminophen Cancelled Urine Barbiturates Neg Ur Phencyclidine (PCP) Neg U Amphetamin/Meth Scrn Neg Urine MDEA Pending MDMA (Ecstasy) Screen Pos H MDMA Pending Urine MDMA Pending U Benzodiazepines Scrn Neg Ur Cocaine Metabolite Neg U Marijuana (THC) Screen Neg Ethyl Alcohol mg/dL COVID-19 Eval Order SARS-CoV-2 (PCR) Miscellaneous Test Miscellaneous Test 2 03/18/21 03/18/21 03/18/21 05:00 07:10 07:10 WBC 10.73 RBC 4.17 L Hgb 14.3 Hct 40.5 L MCV 97.1 MCH 34.3 H MCHC 35.3 RDW Std Deviation 73.1 H RDW Coeff of Bulmaro 20.9 H Plt Count 167 MPV 11.5 H Immature Gran % (Auto) 0.4 Neut % (Auto) 76.2 Lymph % (Auto) 10.8 [place] % (Auto) 11.7 Eos % (Auto) 0.5 Baso % (Auto) 0.4 Neut # (Auto) 8.18 H Lymph # (Auto) 1.16 L [place] # (Auto) 1.26 H Eos # (Auto) 0.05 Baso # (Auto) 0.04 Immature Gran # (Auto) 0.04 H Anisocytosis Present Pappenheimer Bodies Target Cells 1+ PT INR APTT PTT Ratio Sodium 135 L Potassium 3.0 L Chloride 96 L Carbon Dioxide 24 Anion Gap 15.0 H BUN 4 L Creatinine Est Cr Clr Drug Dosing Not Reportable Est GFR ( Amer) Not Reportable Est GFR (Non-Af Amer) Not Reportable BUN/Creatinine Ratio TNP Glucose 123 H Estimat Average Glucose Hemoglobin A1c Osmolality Lactate Calcium 7.9 L Magnesium Total Bilirubin 20.9 H Direct Bilirubin AST 251 H ALT 58 Alkaline Phosphatase 401 H Ammonia Troponin I Total Protein Albumin 2.1 L Globulin TNP Albumin/Globulin Ratio TNP Lipase TSH Urine Color Urine Appearance Urine pH Ur Specific Bangs Urine Protein Urine Glucose (UA) Urine Ketones Urine Blood Urine Nitrite Urine Bilirubin Urine Urobilinogen Ur Leukocyte Esterase Urine RBC Urine WBC Ur Epithelial Cells Urine Bacteria Urine Osmolality Ur Random Sodium Salicylates Urine Opiates Screen Ur Methadone, Qual Acetaminophen Urine Barbiturates Ur Phencyclidine (PCP) U Amphetamin/Meth Scrn Urine MDEA MDMA (Ecstasy) Screen MDMA Urine MDMA U Benzodiazepines Scrn Ur Cocaine Metabolite U Marijuana (THC) Screen Ethyl Alcohol mg/dL COVID-19 Eval Order SARS-CoV-2 (PCR) Miscellaneous Test Pending Miscellaneous Test 2 Pending 03/18/21 03/18/21 03/18/21 07:10 07:10 07:10 WBC RBC Hgb Hct MCV MCH MCHC RDW Std Deviation RDW Coeff of Bulmaro Plt Count MPV Immature Gran % (Auto) Neut % (Auto) Lymph % (Auto) [place] % (Auto) Eos % (Auto) Baso % (Auto) Neut # (Auto) Lymph # (Auto) [place] # (Auto) Eos # (Auto) Baso # (Auto) Immature Gran # (Auto) Anisocytosis Pappenheimer Bodies Target Cells PT INR APTT PTT Ratio Sodium Potassium Chloride Carbon Dioxide Anion Gap BUN Creatinine Est Cr Clr Drug Dosing Est GFR ( Amer) Est GFR (Non-Af Amer) BUN/Creatinine Ratio Glucose Estimat Average Glucose Pending Hemoglobin A1c Pending Osmolality Lactate 2.4 H* Calcium Magnesium Total Bilirubin Direct Bilirubin AST ALT Alkaline Phosphatase Ammonia Troponin I Total Protein Albumin Globulin Albumin/Globulin Ratio Lipase TSH Urine Color Urine Appearance Urine pH Ur Specific Bangs Urine Protein Urine Glucose (UA) Urine Ketones Urine Blood Urine Nitrite Urine Bilirubin Urine Urobilinogen Ur Leukocyte Esterase Urine RBC Urine WBC Ur Epithelial Cells Urine Bacteria Urine Osmolality Ur Random Sodium Salicylates Urine Opiates Screen Ur Methadone, Qual Acetaminophen Urine Barbiturates Ur Phencyclidine (PCP) U Amphetamin/Meth Scrn Urine MDEA MDMA (Ecstasy) Screen MDMA Urine MDMA U Benzodiazepines Scrn Ur Cocaine Metabolite U Marijuana (THC) Screen Ethyl Alcohol mg/dL COVID-19 Eval Order SARS-CoV-2 (PCR) Miscellaneous Test Pending Miscellaneous Test 2 Pending 03/18/21 03/18/21 11:43 13:22 WBC RBC Hgb Hct MCV MCH MCHC RDW Std Deviation RDW Coeff of Bulmaro Plt Count MPV Immature Gran % (Auto) Neut % (Auto) Lymph % (Auto) [place] % (Auto) Eos % (Auto) Baso % (Auto) Neut # (Auto) Lymph # (Auto) [place] # (Auto) Eos # (Auto) Baso # (Auto) Immature Gran # (Auto) Anisocytosis Pappenheimer Bodies Target Cells PT INR APTT PTT Ratio Sodium 133 L Potassium Chloride Carbon Dioxide Anion Gap BUN Creatinine Est Cr Clr Drug Dosing Est GFR ( Amer) Est GFR (Non-Af Amer) BUN/Creatinine Ratio Glucose Estimat Average Glucose Hemoglobin A1c Osmolality Lactate 3.9 H* Calcium Magnesium Total Bilirubin Direct Bilirubin AST ALT Alkaline Phosphatase Ammonia Troponin I Total Protein Albumin Globulin Albumin/Globulin Ratio Lipase TSH Urine Color Urine Appearance Urine pH Ur Specific Bangs Urine Protein Urine Glucose (UA) Urine Ketones Urine Blood Urine Nitrite Urine Bilirubin Urine Urobilinogen Ur Leukocyte Esterase Urine RBC Urine WBC Ur Epithelial Cells Urine Bacteria Urine Osmolality Ur Random Sodium Salicylates Urine Opiates Screen Ur Methadone, Qual Acetaminophen Urine Barbiturates Ur Phencyclidine (PCP) U Amphetamin/Meth Scrn Urine MDEA MDMA (Ecstasy) Screen MDMA Urine MDMA Diagnostic Findings CT scan abdomen: 1. Enlarged fatty liver with mild cirrhosis. 2. Small amount of ascites. 3. A 3.7 cm heterogeneous pancreatic tail lesion. Follow-up pancreatic MRI with contrast recommended for further evaluation. 4. Mild edema within the proximal colon which is nonspecific but suggests a portal colopathy. Infectious or inflammatory colitis is considered less likely but not entirely excluded.
--- NOTE | 2021-03-18 17:15 | Hospitalist Progress Note ---
Date of Service March 18, 2021 Assessment & Plan (1) Alcoholic hepatitis: (2) Ascites: Plan: Present on admission with Alcohol intoxication Need to R/O SBP CT abd/pelvis showed enlarged fatty liver with mild cirrhosis. Small amount of ascites. 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 [facility] [place] recommended keeping patient at [facility] and treatment for possible acetaminophen toxicity. Acetadote protocol initiated at the ER, will finish last bag today Case discussed with Dr. Stark that recommended steroid therapy after r/o SBP Continue IV albumin for now Plan to get paracentesis done on Friday Pt was counseling about alcohol cessation Alcohol intoxication Alcohol abuse Alcohol level 348 on admission Previous history of alcohol withdrawal and DT in the past Continue Ativan and gabapentin alcohol withdrawn protocol Counseling on alcohol cessation Continue thiamine and Folic acid Consider inpatient alcohol rehab Continue monitor closely for sign of alcohol withdraw and DT Pancreatic Mass CT showed 3.7 cm heterogeneous pancreatic tail lesion. Gastro recommended outpatient EUS in 4 weeks to evaluate the panc lesion however this is likely a WON/necroma related to prior pancreatitis. Follow-up pancreatic MRI with contrast recommended for further evaluation. Elevated lactic acid Possible related to alcohol intoxication, but need to r/o infection/SBP Elevated WBC received IVF Continue Rocephin IV for now Will continue monitor Lactic acid and WBC Electrolytes abnormalities Mostly related to alcohol abuse and poor oral intake K 2.4, Mg 1.6 and Na 133 Electrolytes replaced Continue monitor electrolytes closely Elevated INR Mostly related to acute alcohol hepatitis/ascites Continue monitor INR and if above 2, will give vit K No sign of bleeding DVT px SCD due to elevate INR and history of intermittent epistaxis CODE STATUS FULL CODE Patient requesting for referral to be updated of plan of care. Ms. Wendy Matute, contact #[phone]. Admission and Anticipated Discharge Date Admission Date: March 18, 2021 Subjective Pt was seen and examined for alcohol abuse Lying in bed confused and drowsy Pt said that he drank very day He said that he had history of alcohol withdrawal in the past He said that he went to rehab in the past He is not sure yet if he wants to go back to rehab again Denies any chest pain, palpitation, dizziness and SOB Review of Systems Review of Systems: All systems reviewed & are unremarkable except as noted in Subjective Physical Exam Physical Exam: General- No acute distress Head- atraumatic Eyes- PERRL, EOMI, icterus ENT- oropharynx clear Neck- supple, no JVD Lungs- No wheeze Heart- regular rhythm; no murmur Abdomen- normal bowel sounds, +ascites, Non tender Extremities- no calf tenderness Neuro- alert, drowsy, no facial palsy; no dysarthria, move all 4 extremities Skin- warm & dry, jaundice Results & Data Results & [facility] ([facility]) Vital Signs (Past 12 Hours) Vital Signs Temp Pulse Pulse Resp BP BP Pulse Ox 03/18/21 17:00 37.4 C 92 H 18 127/84 92 03/18/21 15:25 36.7 C 91 H 18 115/81 93 03/18/21 14:49 37 C 105 H 18 110/69 94 03/18/21 12:07 36.4 C L 81 20 113/74 93 03/18/21 07:23 83 03/18/21 06:16 37 C 83 18 132/89 94 03/18/21 05:49 37 C 83 16 132/89 94 03/18/21 05:47 83 (1) Alcoholic hepatitis Ascites presence: with ascites Qualified Code(s): K70.11 - Alcoholic hepatitis with ascites
[2021-03-18] MEDS: MONTELUKAST SODIUM 10 MG TABLET PO SCH (19:51)
[2021-03-18] MEDS: MIRTAZAPINE TAB 15 MG TAB PO SCH (19:51)
[2021-03-18] MEDS ORDERED: chlordiazePOXIDE ALCOHOL WITHDRAWL 25MG PO STA (22:28)
--- NOTE | 2021-03-18 22:32 | Communication Note ---
Date of Service: March 18, 2021 Patient transferred to PCU for closer monitoring given worsening alcohol withdrawal as per RN.
[2021-03-18] MEDS: chlordiazePOXIDE HCl 25 MG CAP PO SCH (23:14)
[2021-03-19] MEDS: ALBUMIN 25% 12.5 GM/50 ML VIAL IV SCH ×6 (00:08→18:01)
[2021-03-19] MEDS: LORazepam 2 MG/4 ML VIAL IV PRN ×4 (00:27→06:28)
[2021-03-19] MEDS: chlordiazePOXIDE HCl 25 MG CAP PO SCH ×5 (05:35→22:01)
[2021-03-19] MEDS: cefTRIAXone SODIUM 2,000 MG in DEXTROSE 5% 50 ML IV SCH (06:22)
[2021-03-19 07:13] LABS: Mean Corpuscular Hgb Conc 34.9 g/dL (32-36)
[2021-03-19 07:24] LABS: INR 1.5 (0.9-1.1); Prothrombin Time 14.3 Seconds (9.0-12.0)
[2021-03-19 07:29] LABS: Estimated Average Glucose 80 mg/dl; Hemoglobin A1C 4.4 % (4.5-5.6)
[2021-03-19 07:40] LABS: Anisocytosis Present; Basophils # (auto) 0.06 K/uL (0-0.2); Basophils % (auto) 0.7 %; Eosinophils # (auto) 0.11 K/uL (0-0.5); Eosinophils % (auto) 1.2 %; Hematocrit (blood only) 35.2 % (42-52); Hemoglobin 12.3 g/dL (14.0-18.0); Immature Granulocytes # (auto) 0.04 K/uL (0.00-0.02); Immature Granulocytes % (auto) 0.4 %; Lymphocytes # (auto) 1.04 K/uL (1.2-3.4); Lymphocytes % (auto) 11.4 %; Mean Corpuscular Hemoglobin 34.2 pg (25-34); Mean Corpuscular Volume 97.8 fL (80-100); Mean Platelet Volume 12.1 fL (7.4-10.4); Monocytes # (auto) 1.23 K/uL (0.11-0.59); Monocytes % (auto) 13.5 %; Neutrophils # (auto) 6.61 K/uL (1.4-6.5); Neutrophils % (auto) 72.8 %; Platelet Count 108 K/uL (130-400); Platelet Estimate Decreased (Normal); Polychromasia 1+; RDW Coefficient of Variation 20.5 % (11.5-14.5); RDW Standard Deviation 72.3 fL (36.4-46.3); Target Cells 2+; White Blood Count 9.09 K/uL (4.8-10.8)
[2021-03-19 08:00] LABS: Alanine Aminotransferase 42 U/L (12-78); Albumin Level 2.8 gm/dl (3.4-5.0); Alkaline Phosphatase 314 U/L (45-117); Aspartate Aminotransferase 199 U/L (15-37); Bilirubin,Total 23.2 mg/dl (0.2-1); Blood Urea Nitrogen 2 mg/dl (7-18); Calcium 8.2 mg/dl (8.5-10.1); Carbon Dioxide 26 mmol/L (21-32); Chloride 96 mmol/L (98-107); Glucose 137 mg/dl (70-99); Magnesium 1.6 mg/dl (1.8-2.4); Potassium 2.4 mmol/L (3.5-5.1); Sodium 133 mmol/L (136-145)
[2021-03-19] MEDS ORDERED: POTASSIUM CHLORIDE CRTAB 20 MEQ TABCR PO STA (08:06)
[2021-03-19] MEDS: POTASSIUM CHLORIDE / WTR 10 MEQ/100 ML PLCT IV SCH ×4 (08:40→13:01)
[2021-03-19] MEDS: MAGNESIUM SULFATE / D5W 1 GM/100 ML BAG IV SCH ×2 (08:40→10:43)
[2021-03-19] MEDS ORDERED: cloNIDine HCL 0.1 MG TAB PO PRN (10:16)
--- NOTE | 2021-03-19 11:01 | Gastroenterology Progress Note ---
Date of Service March 19, 2021 Assessment & Plan (1) Decompensated hepatic cirrhosis: Plan: 45 year old male admitted w/ abdominal pain, jaundice MDF = 42. Ideally would treat with Prednisone however there is a concern about SBP in view of small ascites and abdominal discomfort, unfortunately he was started on IV ABX and did not have a diagnostic paracentesis. - Not accepted for transfer to liver center - Consider diagnostic paracentesis today, if unremarkable consider prednisone therapy - Monitor INR, if >2 then give PO Vitamin K x 3 days. - Needs EUS as OP in 4 weeks to evaluate the panc lesion however this is likely a WON/necroma related to prior pancreatitis. - Complete NAC. - Nutritional support. - Watch for ETOH withdrawal - Alcohol cessation - Needs thiamin and folic acid - Elyte replacement per primary team Thank you for allowing us to participate in the care of this patient. Please call with any acute changes, questions or concerns. Please see addendum below with additional recommendation from my supervising physician. (2) Alcoholic hepatitis: (3) Abnormal LFTs: (4) Pancreatic mass: Admission and Anticipated Discharge Date Admission Date: March 18, 2021 Supervising Physician Co-Signing Physician Notes I performed a history and physical examination of the patient today, including specifically on physical exam - soft abdomen. I have discussed the patient's management with the advanced practitioner. Please refer to the nurse practitioner's note for the documented findings and plan of care. Subjective Pt was seen and evaluated, chart reviewed. Pt asleep on assessment this AM. Briefly awakes to name, provides name and goes back to sleep Offers no complaints Review of Systems Review of Systems: Other Unable to obtain as pt sleeping Physical Exam Constitutional: WD/WN, vitals as above Eyes: +scleral icterus Respiratory: normal respiratory effort, lungs clear to auscultation Cardiovascular: RRR, no murmur, no edema Gastrointestinal (Abdomen): normal bowel sounds, soft, nontender, no hepatosplenomegaly Skin: + jaundice + scattered bruising Results & Data ([facility]) Vital Signs (Past 12 Hours) Vital Signs Temp Pulse Pulse Resp BP Pulse Ox 03/19/21 10:27 37.0 C 89 18 133/94 93 03/19/21 07:00 95 H 03/19/21 03:11 36.5 C 99 H 20 145/101 H 92 03/18/21 23:30 36.8 C 105 H 20 131/93 93 Laboratory Results 03/19/21 03/19/21 03/19/21 Range/Units 09:04 06:50 06:50 WBC (4.8-10.8) K/uL RBC (4.7-6.1) M/uL Hgb (14.0-18.0) g/dL Hct (42-52) % MCV (80-100) fL MCH (25-34) pg MCHC (32-36) g/dL RDW Std Deviation (36.4-46.3) fL RDW Coeff of Bulmaro (11.5-14.5) % Plt Count (130-400) K/uL MPV (7.4-10.4) fL Immature Gran % (Auto) % Neut % (Auto) % Lymph % (Auto) % [place] % (Auto) % Eos % (Auto) % Baso % (Auto) % Neut # (Auto) (1.4-6.5) K/uL Lymph # (Auto) (1.2-3.4) K/uL [place] # (Auto) (0.11-0.59) K/uL Eos # (Auto) (0-0.5) K/uL Baso # (Auto) (0-0.2) K/uL Immature Gran # (Auto) (0.00-0.02) K/uL Platelet Estimate (Normal) Polychromasia Anisocytosis Target Cells PT (9.0-12.0) Seconds INR (0.9-1.1) Sodium 133 L (136-145) mmol/L Potassium 2.4 L* D (3.5-5.1) mmol/L Chloride 96 L (98-107) mmol/L Carbon Dioxide 26 (21-32) mmol/L Anion Gap 11.0 (3-11) BUN 2 L (7-18) mg/dl Creatinine (0.6-1.4) mg/dl Est Cr Clr Drug Dosing Not Reportable Est GFR ( Amer) Not Reportable Est GFR (Non-Af Amer) Not Reportable BUN/Creatinine Ratio TNP Glucose 137 H (70-99) mg/dl Estimat Average Glucose mg/dl Hemoglobin A1c (4.5-5.6) % Lactate 1.7 (0.4-2.0) mmol/L Calcium 8.2 L (8.5-10.1) mg/dl Magnesium 1.6 L (1.8-2.4) mg/dl Total Bilirubin 23.2 H (0.2-1) mg/dl AST 199 H (15-37) U/L ALT 42 (12-78) U/L Alkaline Phosphatase 314 H (45-117) U/L Total Protein (6.4-8.2) gm/dl Albumin 2.8 L (3.4-5.0) gm/dl Globulin TNP Albumin/Globulin Ratio TNP Miscellaneous Test Pending Miscellaneous Test 2 Pending 03/19/21 03/19/21 03/18/21 Range/Units 06:50 06:50 13:22 WBC 9.09 (4.8-10.8) K/uL RBC 3.60 L (4.7-6.1) M/uL Hgb 12.3 L (14.0-18.0) g/dL Hct 35.2 L (42-52) % MCV 97.8 (80-100) fL MCH 34.2 H (25-34) pg MCHC 34.9 (32-36) g/dL RDW Std Deviation 72.3 H (36.4-46.3) fL RDW Coeff of Bulmaro 20.5 H (11.5-14.5) % Plt Count 108 L (130-400) K/uL MPV 12.1 H (7.4-10.4) fL Immature Gran % (Auto) 0.4 % Neut % (Auto) 72.8 % Lymph % (Auto) 11.4 % [place] % (Auto) 13.5 % Eos % (Auto) 1.2 % Baso % (Auto) 0.7 % Neut # (Auto) 6.61 H (1.4-6.5) K/uL Lymph # (Auto) 1.04 L (1.2-3.4) K/uL [place] # (Auto) 1.23 H (0.11-0.59) K/uL Eos # (Auto) 0.11 (0-0.5) K/uL Baso # (Auto) 0.06 (0-0.2) K/uL Immature Gran # (Auto) 0.04 H (0.00-0.02) K/uL Platelet Estimate Decreased L (Normal) Polychromasia 1+ Anisocytosis Present Target Cells 2+ PT 14.3 H (9.0-12.0) Seconds INR 1.5 H (0.9-1.1) Sodium (136-145) mmol/L Potassium (3.5-5.1) mmol/L Chloride (98-107) mmol/L Carbon Dioxide (21-32) mmol/L Anion Gap (3-11) BUN (7-18) mg/dl Creatinine (0.6-1.4) mg/dl Est Cr Clr Drug Dosing Est GFR ( Amer) Est GFR (Non-Af Amer) BUN/Creatinine Ratio Glucose (70-99) mg/dl Estimat Average Glucose mg/dl Hemoglobin A1c (4.5-5.6) % Lactate 3.9 H* (0.4-2.0) mmol/L Calcium (8.5-10.1) mg/dl Magnesium (1.8-2.4) mg/dl Total Bilirubin (0.2-1) mg/dl AST (15-37) U/L ALT (12-78) U/L Alkaline Phosphatase (45-117) U/L Total Protein (6.4-8.2) gm/dl Albumin (3.4-5.0) gm/dl Globulin Albumin/Globulin Ratio Miscellaneous Test Miscellaneous Test 2 03/18/21 03/18/21 Range/Units 11:43 07:10 WBC (4.8-10.8) K/uL RBC (4.7-6.1) M/uL Hgb (14.0-18.0) g/dL Hct (42-52) % MCV (80-100) fL MCH (25-34) pg MCHC (32-36) g/dL RDW Std Deviation (36.4-46.3) fL RDW Coeff of Bulmaro (11.5-14.5) % Plt Count (130-400) K/uL MPV (7.4-10.4) fL Immature Gran % (Auto) % Neut % (Auto) % Lymph % (Auto) % [place] % (Auto) % Eos % (Auto) % Baso % (Auto) % Neut # (Auto) (1.4-6.5) K/uL Lymph # (Auto) (1.2-3.4) K/uL [place] # (Auto) (0.11-0.59) K/uL Eos # (Auto) (0-0.5) K/uL Baso # (Auto) (0-0.2) K/uL Immature Gran # (Auto) (0.00-0.02) K/uL Platelet Estimate (Normal) Polychromasia Anisocytosis Target Cells PT (9.0-12.0) Seconds INR (0.9-1.1) Sodium 133 L (136-145) mmol/L Potassium (3.5-5.1) mmol/L Chloride (98-107) mmol/L Carbon Dioxide (21-32) mmol/L Anion Gap (3-11) BUN (7-18) mg/dl Creatinine (0.6-1.4) mg/dl Est Cr Clr Drug Dosing Est GFR ( Amer) Est GFR (Non-Af Amer) BUN/Creatinine Ratio Glucose (70-99) mg/dl Estimat Average Glucose 80 mg/dl Hemoglobin A1c 4.4 L (4.5-5.6) % Lactate (0.4-2.0) mmol/L Calcium (8.5-10.1) mg/dl Magnesium (1.8-2.4) mg/dl Total Bilirubin (0.2-1) mg/dl AST (15-37) U/L ALT (12-78) U/L Alkaline Phosphatase (45-117) U/L Total Protein (6.4-8.2) gm/dl Albumin (3.4-5.0) gm/dl Globulin Albumin/Globulin Ratio Miscellaneous Test Miscellaneous Test 2 (1) Alcoholic hepatitis Ascites presence: with ascites Qualified Code(s): K70.11 - Alcoholic hepatitis with ascites
[2021-03-19 12:22] LABS: Appearance Urine Clear (Clear); Color Urine Orange
[2021-03-19 12:23] LABS: Specific Gravity Urine 1.014 (1.000-1.030)
[2021-03-19 12:28] LABS: Bacteria Urine Negative (Negative); Epithelial Cell Urine 20-30 /lpf (0-5); RBC Urine 0-4 /hpf (0-4)
[2021-03-19] MEDS: CYANOCOBALAMIN (VITAMIN B-12) 100 MCG TABLET PO SCH (13:35)
[2021-03-19] MEDS: GABAPENTIN 400 MG CAP PO SCH ×3 (13:35→21:02)
[2021-03-19] MEDS: MULTIVITAMIN TAB PO SCH (13:35)
[2021-03-19] MEDS: PANTOprazole 40 MG TAB PO SCH (13:35)
[2021-03-19] MEDS: buPROPion SR 150 MG TABCR PO SCH ×2 (13:35→21:03)
[2021-03-19] MEDS: PROPRANOLOL HCL 10 MG TAB PO SCH (13:35)
[2021-03-19] MEDS: busPIRone 15 MG TAB PO SCH ×3 (13:35→21:03)
[2021-03-19] MEDS: CETIRIZINE HCL 10 MG TABLET PO SCH (13:35)
[2021-03-19] MEDS: THIAMINE HCL 100 MG TAB PO SCH (13:35)
[2021-03-19] MEDS: FOLIC ACID 1 MG TAB PO SCH (13:35)
[2021-03-19] MEDS: amLODIPine BESYLATE 5 MG TAB PO SCH (13:36)
[2021-03-19] MEDS: FLUTICASONE PROPIONATE NA SPR 16 GM BTL SCH (13:43)
[2021-03-19] MEDS: FLUTICASONE/VILANTEROL 200/25MCG 14 PUFFS/INHALER INH SCH (13:43)
--- NOTE | 2021-03-19 15:47 | Ultrasound Report ---
ULTRASOUND GUIDED DIAGNOSTIC AND THERAPEUTIC PARACENTESIS CLINICAL HISTORY: ascites COMPARISON STUDY: CT of the abdomen and pelvis March 18, 2021. PROCEDURE: The risks, benefits, and alternatives to the procedure were discussed with the patient inc luding the risk of bleeding, infection and injury to adjacent structures. The patient agreed to the procedure and informed written consent was obtained. Following real-time ultrasound localization, the skin of the left lower quadrant was prepped and draped. Following local anesthesia with Xylocaine, t he sheath paracentesis needle was inserted and approximately 950 mL of straw-colored fluid was remove d by vacuum suction. No additional fluid could be withdrawn given small amount of ascites and adjacen t small bowel loop. The patient tolerated the procedure well and no immediate complications were evident. IMPRESSION: Ultrasound-guided diagnostic and therapeutic paracentesis with removal of 950 mL of asci katarzyna. Fluid sent to the laboratory for analysis as ordered. ACT 112: Negative or not required by law. Electronically signed by: Ramon Forbes M.D. 03/19/2021 3:46 PM
[2021-03-19 16:35] LABS: Appearance Peritoneal Fluid CLEAR; Color Peritoneal Fluid AMBER; RBC Peritoneal Fluid (A) < 3000 /uL; WBC Peritoneal Fluid (A) 175 /ul (0-300)
[2021-03-19 16:47] LABS: Total Protein Peritoneal Fluid 1.2 g/dl
[2021-03-19 16:48] LABS: Eosinophils, Fluid 1 %; Lymphocytes, Fluid 29 %; Mono,Macrophage,Mesothelial 69 %; Neutrophils, Fluid 1 %
[2021-03-19] MEDS ORDERED: ALBUMIN 25% 12.5 GM/50 ML VIAL IV ONE (18:03)
[2021-03-19] MEDS: MIRTAZAPINE TAB 15 MG TAB PO SCH (21:02)
[2021-03-19] MEDS: MONTELUKAST SODIUM 10 MG TABLET PO SCH (21:03)
--- NOTE | 2021-03-19 23:18 | Hospitalist Progress Note ---
Date of Service March 19, 2021 Assessment & Plan (1) Alcoholic hepatitis: (2) Ascites: Plan: Present on admission with Alcohol intoxication Need to R/O SBP CT abd/pelvis showed enlarged fatty liver with mild cirrhosis. Small amount of ascites. Elevated AST on admission 248 then dropped to 199 today Continue Rocephin 2 gm IV daily gastro on board gastro nonprofit manager recommended to transfer to a tertiary care center to evaluate for for possible liver failure. [facility] [place] recommended keeping patient at [facility] and treatment for possible acetaminophen toxicity. Completed the acetylcysteine regimen Case discussed with Dr. Stark that recommended steroid therapy after r/o SBP S/P paracentesis done where 950ml ascites fluid removed, will follow ascites culture and gram stain Continue IV albumin for now Plan to get paracentesis done on Friday Pt was counseling about alcohol cessation Alcohol intoxication Alcohol abuse Alcohol level 348 on admission Previous history of alcohol withdrawal and DT in the past Continue Ativan and gabapentin alcohol withdrawn protocol Counseling on alcohol cessation Continue thiamine and Folic acid Consider inpatient alcohol rehab Continue monitor closely for sign of alcohol withdraw and DT Pancreatic Mass CT showed 3.7 cm heterogeneous pancreatic tail lesion. Gastro recommended outpatient EUS in 4 weeks to evaluate the panc lesion however this is likely a WON/necroma related to prior pancreatitis. Follow-up pancreatic MRI with contrast recommended for further evaluation. Elevated lactic acid Possible related to alcohol intoxication, but need to r/o infection/SBP Received IVF lactic acid and WBC normalized Continue Rocephin IV for now Electrolytes abnormalities Mostly related to alcohol abuse and poor oral intake K 2.4, Mg 1.6 and Na 133 Electrolytes replaced Continue monitor electrolytes closely Elevated INR Mostly related to acute alcohol hepatitis/ascites INR 1.5 today Received Vit K on admission Continue monitor INR and if above 2, will give vit K No sign of bleeding DVT px SCD due to elevate INR and history of intermittent epistaxis CODE STATUS FULL CODE Patient requesting for referral to be updated of plan of care. Ms. Wendy Matute, contact #[phone]. Admission and Anticipated Discharge Date Admission Date: March 18, 2021 Subjective Pt was seen and examined for alcohol abuse Lying in bed confused and drowsy I called his partner to provide with update with no answered Denies any chest pain, palpitation, dizziness and SOB Review of Systems Review of Systems: All systems reviewed & are unremarkable except as noted in Subjective Physical Exam Physical Exam: General- No acute distress Head- atraumatic Eyes- PERRL, EOMI, icterus ENT- oropharynx clear Neck- supple, no JVD Lungs- No wheeze Heart- regular rhythm; no murmur Abdomen- normal bowel sounds, +ascites, Non tender Extremities- no calf tenderness Neuro- alert, drowsy, no facial palsy; no dysarthria, move all 4 extremities Skin- warm & dry, jaundice Results & Data Results & Data ([facility]) Vital Signs (Past 12 Hours) Vital Signs Temp Pulse Pulse Resp BP Pulse Ox 03/19/21 20:11 36.6 C 88 20 121/81 92 03/19/21 18:29 96 H 03/19/21 17:37 36.8 C 86 18 150/74 H 92 (1) Alcoholic hepatitis Ascites presence: with ascites Qualified Code(s): K70.11 - Alcoholic hepatitis with ascites
[2021-03-20] MEDS: cefTRIAXone SODIUM 2,000 MG in DEXTROSE 5% 50 ML IV SCH (06:12)
[2021-03-20] MEDS: chlordiazePOXIDE HCl 25 MG CAP PO SCH ×2 (06:13→14:23)
[2021-03-20 06:34] LABS: Hematocrit (blood only) 39.3 % (42-52); Hemoglobin 13.4 g/dL (14.0-18.0); Mean Corpuscular Hemoglobin 34.4 pg (25-34); Mean Corpuscular Hgb Conc 34.1 g/dL (32-36); Nucleated RBC # (auto) 0.04 K/uL (0-0); Nucleated RBC % (auto) 0.5 %; Platelet Count 109 K/uL (130-400); RDW Coefficient of Variation 20.1 % (11.5-14.5); RDW Standard Deviation 73.9 fL (36.4-46.3); Red Blood Count 3.89 M/uL (4.7-6.1); White Blood Count 8.24 K/uL (4.8-10.8)
[2021-03-20 07:12] LABS: Platelet Estimate Decreased (Normal)
[2021-03-20 07:30] LABS: Alanine Aminotransferase 43 U/L (12-78); Albumin Level 2.7 gm/dl (3.4-5.0); Alkaline Phosphatase 301 U/L (45-117); Aspartate Aminotransferase 202 U/L (15-37); Bilirubin,Total 25.3 mg/dl (0.2-1); Blood Urea Nitrogen 2 mg/dl (7-18); Calcium 8.9 mg/dl (8.5-10.1); Carbon Dioxide 29 mmol/L (21-32); Chloride 100 mmol/L (98-107); Glucose 92 mg/dl (70-99); Magnesium 1.7 mg/dl (1.8-2.4); Potassium 2.5 mmol/L (3.5-5.1); Sodium 136 mmol/L (136-145)
[2021-03-20] MEDS ORDERED: POTASSIUM CHLORIDE CRTAB 20 MEQ TABCR PO STA (07:32)
[2021-03-20] MEDS ORDERED: MAGNESIUM SULFATE / D5W 1 GM/100 ML BAG IV ONE (08:00)
[2021-03-20] MEDS: POTASSIUM CHLORIDE / WTR 10 MEQ/100 ML PLCT IV SCH ×4 (08:25→12:31)
[2021-03-20] MEDS: FLUTICASONE PROPIONATE NA SPR 16 GM BTL SCH (08:29)
[2021-03-20] MEDS: THIAMINE HCL 100 MG TAB PO SCH (08:29)
[2021-03-20] MEDS: CETIRIZINE HCL 10 MG TABLET PO SCH (08:30)
[2021-03-20] MEDS: FLUTICASONE/VILANTEROL 200/25MCG 14 PUFFS/INHALER INH SCH (08:30)
[2021-03-20] MEDS: PANTOprazole 40 MG TAB PO SCH (08:30)
[2021-03-20] MEDS: CYANOCOBALAMIN (VITAMIN B-12) 100 MCG TABLET PO SCH (08:30)
[2021-03-20] MEDS: FOLIC ACID 1 MG TAB PO SCH (08:30)
[2021-03-20] MEDS: GABAPENTIN 400 MG CAP PO SCH ×3 (08:30→21:42)
[2021-03-20] MEDS: MULTIVITAMIN TAB PO SCH (08:30)
[2021-03-20] MEDS: PROPRANOLOL HCL 10 MG TAB PO SCH (08:30)
[2021-03-20] MEDS: busPIRone 15 MG TAB PO SCH ×3 (08:30→21:41)
[2021-03-20] MEDS: amLODIPine BESYLATE 5 MG TAB PO SCH (08:31)
[2021-03-20] MEDS: buPROPion SR 150 MG TABCR PO SCH ×2 (08:31→21:41)
--- NOTE | 2021-03-20 19:12 | Hospitalist Progress Note ---
Date of Service March 20, 2021 Assessment & Plan (1) Alcoholic hepatitis: (2) Ascites: Plan: Present on admission with Alcohol intoxication Need to R/O SBP CT abd/pelvis showed enlarged fatty liver with mild cirrhosis. Small amount of ascites. Elevated AST on admission 248 then dropped to 199 today Continue Rocephin 2 gm IV daily gastro on board gastro economic specialist recommended to transfer to a tertiary care center to evaluate for for possible liver failure[place] [facility] [place] keeping patient at [facility] and treatment for possible acetaminophen toxicity. Completed the acetylcysteine regimen Case discussed with Dr. Stark that recommended steroid therapy after r/o SBP S/P paracentesis done where 950ml ascites fluid removed, will follow ascites culture and gram stain Continue IV albumin for now Pt was counseling about alcohol cessation Alcohol intoxication Alcohol abuse Alcohol level 348 on admission Previous history of alcohol withdrawal and DT in the past Continue Ativan and gabapentin alcohol withdrawn protocol Counseling on alcohol cessation Continue thiamine and Folic acid Consider inpatient alcohol rehab Continue monitor closely for sign of alcohol withdraw and DT Pancreatic Mass CT showed 3.7 cm heterogeneous pancreatic tail lesion. Gastro recommended outpatient EUS in 4 weeks to evaluate the panc lesion however this is likely a WON/necroma related to prior pancreatitis. Follow-up pancreatic MRI with contrast recommended for further evaluation. Elevated lactic acid Possible related to alcohol intoxication, but need to r/o infection/SBP Received IVF lactic acid and WBC normalized Continue Rocephin IV for now Electrolytes abnormalities Mostly related to alcohol abuse and poor oral intake K 2.5, Mg 1.6 and Na 133 Electrolytes replaced Continue monitor electrolytes closely Elevated INR Mostly related to acute alcohol hepatitis/ascites INR 1.5 today Received Vit K on admission Continue monitor INR and if above 2, will give vit K No sign of bleeding DVT px SCD due to elevate INR and history of intermittent epistaxis CODE STATUS FULL CODE Patient requesting for referral to be updated of plan of care. Ms. Wendy Matute, contact #[phone]. Admission and Anticipated Discharge Date Admission Date: March 18, 2021 Subjective Pt was seen and examined for alcohol abuse Lying in bed confused and drowsy Denies any chest pain, palpitation, dizziness and SOB Review of Systems Review of Systems: All systems reviewed & are unremarkable except as noted in Subjective Physical Exam Physical Exam: General- No acute distress Head- atraumatic Eyes- PERRL, EOMI, icterus ENT- oropharynx clear Neck- supple, no JVD Lungs- No wheeze Heart- regular rhythm; no murmur Abdomen- normal bowel sounds, +ascites, Non tender Extremities- no calf tenderness Neuro- alert, drowsy, no facial palsy; no dysarthria, move all 4 extremities Skin- warm & dry, jaundice Results & Data Results & Data ([facility]) Vital Signs (Past 12 Hours) Vital Signs Temp Pulse Pulse Resp BP Pulse Ox 03/20/21 16:00 94 H 03/20/21 15:21 37.3 C 86 18 117/79 90 03/20/21 11:52 36.7 C 96 H 20 120/84 90 03/20/21 08:00 97 H 03/20/21 07:49 37.2 C 98 H 22 155/97 H 90 (1) Alcoholic hepatitis Ascites presence: with ascites Qualified Code(s): K70.11 - Alcoholic hepatitis with ascites
[2021-03-20] MEDS: MONTELUKAST SODIUM 10 MG TABLET PO SCH (21:43)
[2021-03-20] MEDS: MIRTAZAPINE TAB 15 MG TAB PO SCH (21:43)
[2021-03-21] MEDS: cefTRIAXone SODIUM 2,000 MG in DEXTROSE 5% 50 ML IV SCH (06:40)
[2021-03-21] MEDS: FLUTICASONE/VILANTEROL 200/25MCG 14 PUFFS/INHALER INH SCH (08:02)
[2021-03-21] MEDS: GABAPENTIN 400 MG CAP PO SCH ×3 (08:02→21:01)
[2021-03-21] MEDS: THIAMINE HCL 100 MG TAB PO SCH (08:03)
[2021-03-21] MEDS: busPIRone 15 MG TAB PO SCH ×3 (08:03→21:01)
[2021-03-21] MEDS: CETIRIZINE HCL 10 MG TABLET PO SCH (08:03)
[2021-03-21] MEDS: FOLIC ACID 1 MG TAB PO SCH (08:03)
[2021-03-21] MEDS: amLODIPine BESYLATE 5 MG TAB PO SCH (08:04)
[2021-03-21] MEDS: MULTIVITAMIN TAB PO SCH (08:04)
[2021-03-21] MEDS: CYANOCOBALAMIN (VITAMIN B-12) 100 MCG TABLET PO SCH (08:04)
[2021-03-21] MEDS: PANTOprazole 40 MG TAB PO SCH (08:04)
[2021-03-21] MEDS: PROPRANOLOL HCL 10 MG TAB PO SCH (08:04)
[2021-03-21] MEDS: FLUTICASONE PROPIONATE NA SPR 16 GM BTL SCH (08:05)
[2021-03-21] MEDS: buPROPion SR 150 MG TABCR PO SCH ×2 (08:05→21:01)
[2021-03-21 11:01] LABS: Alanine Aminotransferase 39 U/L (12-78); Albumin Level 2.4 gm/dl (3.4-5.0); Alkaline Phosphatase 278 U/L (45-117); Aspartate Aminotransferase 169 U/L (15-37); Bilirubin,Total 23.3 mg/dl (0.2-1); Blood Urea Nitrogen 3 mg/dl (7-18); Calcium 8.8 mg/dl (8.5-10.1); Carbon Dioxide 27 mmol/L (21-32); Chloride 100 mmol/L (98-107); Glucose 122 mg/dl (70-99); Phosphorus 1.8 mg/dl (2.5-4.9); Potassium 2.8 mmol/L (3.5-5.1); Sodium 136 mmol/L (136-145)
--- NOTE | 2021-03-21 16:43 | Hospitalist Progress Note ---
Date of Service March 21, 2021 Assessment & Plan (1) Alcoholic hepatitis: (2) Ascites: Plan: Elevated Liver Enzymes Present on admission with Alcohol intoxication Need to R/O SBP CT abd/pelvis showed enlarged fatty liver with mild cirrhosis. Small amount of a scites. Elevated AST on admission 248 then dropped to 199 today Continue Rocephin 2 gm IV daily gastro on board gastro farm contractor recommended to transfer to a tertiary care center to evaluate for for possible [place] failure[place] [facility] [place] keeping patient at [facility] and treatment for possible acetaminophen toxicity. Completed the acetylcysteine regimen Case discussed with Dr. Stark that recommended steroid therapy after r/o SBP S/P paracentesis done where 950ml ascites fluid removed, will follow ascites culture and gram stain Continue IV albumin for now Ascites Gram stain and culture were negative, no evidence of SBP Will discontinue ceftriaxone Will start on prednisone 40 mg daily for for 28 days as per GI Pt was counseling about alcohol cessation Alcohol intoxication Alcohol abuse Alcohol level 348 on admission Previous history of alcohol withdrawal and DT in the past Continue Ativan and gabapentin alcohol withdrawn protocol Counseling on alcohol cessation Continue thiamine and Folic acid Consider inpatient alcohol rehab Continue monitor closely for sign of alcohol withdraw and DT Pancreatic Mass CT showed 3.7 cm heterogeneous pancreatic tail lesion. Gastro recommended outpatient EUS in 4 weeks to evaluate the panc lesion however this is likely a WON/necroma related to prior pancreatitis. Follow-up pancreatic MRI with contrast recommended for further evaluation. Elevated lactic acid Possible related to alcohol intoxication, but need to r/o infection/SBP Received IVF lactic acid and WBC normalized Continue Rocephin IV for now Electrolytes abnormalities Mostly related to alcohol abuse and poor oral intake K 2.8, Phos 1.8 Electrolytes replaced Continue monitor electrolytes closely Elevated INR Mostly related to acute alcohol hepatitis/ascites INR 1.5 today Received Vit K on admission Continue monitor INR and if above 2, will give vit K No sign of bleeding DVT px SCD due to elevate INR and history of intermittent epistaxis CODE STATUS FULL CODE Patient requesting for referral to be updated of plan of care. Ms. Wendy Matute, contact #[phone]. Admission and Anticipated Discharge Date Admission Date: March 18, 2021 Subjective Pt was seen and examined for alcohol abuse Sitting on the edge of the bed with no acute distress Patient looks more awake today and his mental status better Denies any chest pain, palpitation, dizziness and SOB Review of Systems Review of Systems: All systems reviewed & are unremarkable except as noted in Subjective Physical Exam Physical Exam: General- No acute distress Head- atraumatic Eyes- PERRL, EOMI, icterus ENT- oropharynx clear Neck- supple, no JVD Lungs- No wheeze Heart- regular rhythm; no murmur Abdomen- normal bowel sounds, +ascites, Non tender Extremities- no calf tenderness Neuro- alert, drowsy, no facial palsy; no dysarthria, move all 4 extremities Skin- warm & dry, jaundice Results & Data Results & Data ([facility] [place]) Vital Signs (Past 12 Hours) Vital Signs Temp Pulse Pulse Resp BP BP Pulse Ox 03/21/21 15:44 36.2 C L 86 14 115/77 91 03/21/21 11:45 36.5 C 83 16 112/73 93 03/21/21 08:00 94 H 03/21/21 07:15 36.6 C 92 H 12 115/79 93 (1) Alcoholic hepatitis Ascites presence: with ascites Qualified Code(s): K70.11 - Alcoholic hepatitis with ascites
[2021-03-21] MEDS: MIRTAZAPINE TAB 15 MG TAB PO SCH (21:01)
[2021-03-21] MEDS: MONTELUKAST SODIUM 10 MG TABLET PO SCH (21:15)
[2021-03-22] MEDS ORDERED: POTASSIUM CHLORIDE CRTAB 20 MEQ TABCR PO STA (01:11)
[2021-03-22] MEDS ORDERED: POTASSIUM PHOS 3 MMOL/1 ML INFUSION IV STA (01:11)
[2021-03-22] MEDS ORDERED: POTASSIUM PHOSPHATE 24 MMOL in SODIUM CHLORIDE 0.9% 500 ML IV ONE (01:30)
[2021-03-22] MEDS: chlordiazePOXIDE HCl 5 MG CAP PO SCH ×2 (05:36→17:57)
[2021-03-22 09:11] LABS: Potassium 4.2 mmol/L (3.5-5.1)
[2021-03-22 09:12] LABS: Alanine Aminotransferase 46 U/L (12-78); Albumin Level 2.5 gm/dl (3.4-5.0); Alkaline Phosphatase 303 U/L (45-117); Aspartate Aminotransferase 188 U/L (15-37); Bilirubin,Total 25.9 mg/dl (0.2-1); Blood Urea Nitrogen 4 mg/dl (7-18); Calcium 8.9 mg/dl (8.5-10.1); Carbon Dioxide 22 mmol/L (21-32); Chloride 99 mmol/L (98-107); Glucose 81 mg/dl (70-99); Phosphorus 3.6 mg/dl (2.5-4.9); Sodium 132 mmol/L (136-145)
[2021-03-22] MEDS: buPROPion SR 150 MG TABCR PO SCH ×2 (09:29→21:07)
[2021-03-22] MEDS: PROPRANOLOL HCL 10 MG TAB PO SCH (09:30)
[2021-03-22] MEDS: THIAMINE HCL 100 MG TAB PO SCH (09:30)
[2021-03-22] MEDS: predniSONE 20 MG TAB PO SCH (09:30)
[2021-03-22] MEDS: PANTOprazole 40 MG TAB PO SCH (09:32)
[2021-03-22] MEDS: GABAPENTIN 400 MG CAP PO SCH ×3 (09:33→21:08)
[2021-03-22] MEDS: MULTIVITAMIN TAB PO SCH (09:33)
[2021-03-22] MEDS: FOLIC ACID 1 MG TAB PO SCH (09:34)
[2021-03-22] MEDS: busPIRone 15 MG TAB PO SCH ×3 (09:35→21:07)
[2021-03-22] MEDS: CYANOCOBALAMIN (VITAMIN B-12) 100 MCG TABLET PO SCH (09:35)
[2021-03-22] MEDS: amLODIPine BESYLATE 5 MG TAB PO SCH (09:36)
[2021-03-22] MEDS: CETIRIZINE HCL 10 MG TABLET PO SCH (09:38)
[2021-03-22] MEDS: FLUTICASONE/VILANTEROL 200/25MCG 14 PUFFS/INHALER INH SCH (09:40)
[2021-03-22] MEDS: FLUTICASONE PROPIONATE NA SPR 16 GM BTL SCH (09:41)
[2021-03-22 09:52] LABS: MDA negative; MDEA negative; MDMA (Ecstasy) Urine, Confirm negative
--- NOTE | 2021-03-22 16:12 | Hospitalist Progress Note ---
Date of Service March 22, 2021 Assessment & Plan (1) Alcoholic hepatitis: Plan: Presented with very high LFTs with obstructive feature-with total bilirubin of 26, AST 188, ALT 46 and alkaline phos 303 as of 03/22/2021 Present on admission with Alcohol intoxication CT abd/pelvis showed enlarged fatty liver with mild cirrhosis. Small amount of ascites. Elevated AST on admission 248 then dropped to 199 today Started on intravenous Rocephin 2 gm IV daily Gastro on board -appreciate input and recommendation Gastro assistant branch operations manager recommended to transfer to a tertiary care center to evaluate for for possible liver failure. [facility] [place] GI specialist recommended keeping patient at [facility] and treatment for possible acetaminophen toxicity. Completed the acetylcysteine regimen Case discussed with Dr. Stark that recommended steroid therapy after r/o SBP S/P paracentesis done where 950ml ascites fluid removed, will follow ascites culture and gram stain Continue IV albumin for now Ascites Gram stain and culture were negative, no evidence of SBP Intravenous ceftriaxone was discontinued Started on prednisone 40 mg daily for for 28 days as per GI Condition has not been any better (2) Ascites: Plan: S/P paracentesis done where 950ml ascites fluid removed, will follow ascites culture and gram stain Continue IV albumin for now Ascites Gram stain and culture were negative, no evidence of SBP Intravenous ceftriaxone was discontinued Alcohol intoxication History of alcohol abuse Alcohol level 348 on admission Previous history of alcohol withdrawal and DT in the past Continue Ativan and gabapentin alcohol withdrawn protocol Counseling on alcohol cessation Continue thiamine and Folic acid Consider inpatient alcohol rehab Continue monitor closely for sign of alcohol withdraw and DT Pancreatic Mass CT showed 3.7 cm heterogeneous pancreatic tail lesion. Gastro recommended outpatient EUS in 4 weeks to evaluate the panc lesion however this is likely a WON/necroma related to prior pancreatitis. Follow-up pancreatic MRI with contrast recommended for further evaluation. Elevated lactic acid Possible related to alcohol intoxication, but need to r/o infection/SBP Received IVF lactic acid and WBC normalized Continue Rocephin IV for now Electrolytes abnormalities Mostly related to alcohol abuse and poor oral intake K 2.8, Phos 1.8 Electrolytes replaced Continue monitor electrolytes closely Elevated INR Mostly related to acute alcohol hepatitis/ascites INR 1.5 today Received Vit K on admission Continue monitor INR and if above 2, will give vit K No sign of bleeding and will recheck INR DVT px SCD due to elevate INR and history of intermittent epistaxis CODE STATUS FULL CODE Patient requesting for referral to be updated of plan of care. Ms. Wendy Matute, contact #[phone]. Admission and Anticipated Discharge Date Admission Date: March 18, 2021 Subjective 03/22/2021 The patient was seen and examined in telemetry unit He remains pleasantly confused and has been requiring one-to-one sitter He is generally weak but does not have any acute distress Review of Systems Review of Systems: Unobtainable due to cognitive status Physical Exam Physical Exam: Lying in bed comfortably Constitutional: well developed, well nourished, + ill appearing and + obese Eyes: Icterus of sclera and yellow coloration of the skin ENMT: external ear and nose normal, oropharynx normal Neck: trachea midline, no thyromegaly Respiratory: + respiratory distress (Minimal distress at rest) Auscultation: + diminished lung sounds and + crackles (Minimal bibasilar crackles) Gastrointestinal (Abdomen): Inspection/Auscultation: + abdomen distended and normal bowel sounds Percussion/Palpation: + abdomen tender (Mildly tender all over) and abdomen soft; no guarding Musculoskeletal: No acute arthritis in any joint Neurologic: Alert and awake. Pleasantly confused Results & Data Results & Data ([facility]) Vital Signs (Past 12 Hours) Vital Signs Temp Pulse Pulse Resp BP Pulse Ox 03/22/21 15:32 79 03/22/21 10:22 97 H 03/22/21 07:37 164/109 H 91 03/22/21 05:40 86 03/22/21 04:25 36.5 C 103 H 18 135/80 92 Laboratory Results [facility] 03/22/21 07:50 Sodium 132 L Potassium 4.2 D Chloride 99 Carbon Dioxide 22 BUN 4 L Creatinine Glucose 81 Calcium 8.9 Liver Function 03/22/21 Range/Units 07:50 Total Bilirubin 25.9 H (0.2-1) mg/dl AST 188 H (15-37) U/L ALT 46 (12-78) U/L Alkaline Phosphatase 303 H (45-117) U/L Albumin 2.5 L (3.4-5.0) gm/dl Medications Administered Current Inpatient Medications Acetaminophen (Acetaminophen 325 Mg Tab) 325 mg PO Q6H PRN PRN Reason: Mild Pain Stop: 04/17/21 05:48 Amlodipine Besylate (Amlodipine Besylate 5 Mg Tab) 2.5 mg PO DAILY [facility] Stop: 04/17/21 08:59 Last Admin: 03/22/21 09:36 Dose: 2.5 mg Documented by: Bupropion HCl (Bupropion Sr 150 Mg Tabcr) 150 mg PO BID [facility] Stop: 04/17/21 08:59 Last Admin: 03/22/21 09:29 Dose: 150 mg Documented by: Buspirone HCl (Buspirone 15 Mg Tab) 30 mg PO TID [facility] Stop: 04/17/21 08:59 Last Admin: 03/22/21 09:35 Dose: 30 mg Documented by: Cetirizine HCl (Cetirizine Hcl 10 Mg Tablet) 10 mg PO DAILY [facility] Stop: 04/17/21 08:59 Last Admin: 03/22/21 09:38 Dose: 10 mg Documented by: Chlordiazepoxide HCl (Chlordiazepoxide Hcl 5 Mg Cap) 5 mg PO Q12H [facility] Stop: 03/22/21 18:01 Last Admin: 03/22/21 05:36 Dose: 5 mg Documented by: Clonidine HCl (Clonidine Hcl 0.1 Mg Tab) 0.1 mg PO BID PRN PRN Reason: for SBP above 170 Stop: 04/18/21 10:15 Cyanocobalamin (Cyanocobalamin (Vitamin B-12) 100 Mcg Tablet) 100 mcg PO DAILY [facility] Stop: 04/17/21 08:59 Last Admin: 03/22/21 09:35 Dose: 100 mcg Documented by: Fluticasone Propionate (Fluticasone Propionate Na Spr 16 Gm Btl) 2 sprays NA DAILY [facility] Stop: 04/17/21 08:59 Last Admin: 03/22/21 09:41 Dose: 2 sprays Documented by: Fluticasone/Vilanterol (Fluticasone/Vilanterol 200/25mcg 14 Puffs/Inhaler) 1 puffs INH DAILY [facility] Stop: 04/17/21 08:59 Last Admin: 03/22/21 09:40 Dose: 1 puffs Documented by: Folic Acid (Folic Acid 1 Mg Tab) 1 mg PO DAILY [facility] Stop: 04/17/21 08:59 Last Admin: 03/22/21 09:34 Dose: 1 mg Documented by: Gabapentin (Gabapentin 400 Mg Cap) 400 mg PO TID [facility] Stop: 04/17/21 08:59 Last Admin: 03/22/21 09:33 Dose: 400 mg Documented by: Lorazepam (Ativan) 1 mg in 2 mls @ 2 mls/min IV UD PRN; Protocol PRN Reason: EtOH Withdrawl AWSS Score 6,7 Stop: 04/17/21 05:48 Lorazepam (Ativan) 2 mg in 4 mls @ 4 mls/min IV UD PRN; Protocol PRN Reason: EtOH Withdrawl AWSS Score 8,9 Stop: 04/17/21 05:48 Last Admin: 03/19/21 06:28 Dose: 4 mls/min Documented by: Lorazepam (Ativan) 3 mg in 6 mls @ 4 mls/min IV ONCE PRN; Protocol PRN Reason: EtOH Withdrawl AWSS Score >=10 Stop: 04/17/21 05:48 Promethazine HCl 12.5 mg/ (Sodium Chloride) 50.5 mls @ 202 mls/hr IV Q6H PRN PRN Reason: Nausea And Vomiting Stop: 04/17/21 05:48 Mirtazapine (Mirtazapine Tab 15 Mg Tab) 15 mg PO HS [facility] Stop: 04/17/21 20:59 Last Admin: 03/21/21 21:01 Dose: 15 mg Documented by: Montelukast Sodium (Montelukast Sodium 10 Mg Tablet) 10 mg PO HS [facility] Stop: 04/17/21 20:59 Last Admin: 03/21/21 21:15 Dose: 10 mg Documented by: Multivitamins (Multivitamin Tab) 1 tab PO DAILY [facility] Stop: 04/17/21 08:59 Last Admin: 03/22/21 09:33 Dose: 1 tab Documented by: Oxycodone HCl (Oxycodone Hcl Ir 5 Mg Tab (Immediate Release)) 5 mg PO Q4H PRN PRN Reason: Pain Stop: 04/01/21 05:48 Pantoprazole Sodium (Pantoprazole 40 Mg Tab) 40 mg PO DAILY [facility] Stop: 04/17/21 08:59 Last Admin: 03/22/21 09:32 Dose: 40 mg Documented by: Prednisone (Prednisone 20 Mg Tab) 40 mg PO DAILY [facility] Stop: 04/21/21 08:59 Last Admin: 03/22/21 09:30 Dose: 40 mg Documented by: Propranolol HCl (Propranolol Hcl 10 Mg Tab) 10 mg PO DAILY [facility] Stop: 04/18/21 08:59 Last Admin: 03/22/21 09:30 Dose: 10 mg Documented by: Thiamine HCl (Thiamine Hcl 100 Mg Tab) 100 mg PO DAILY [facility] Stop: 04/17/21 08:59 Last Admin: 03/22/21 09:30 Dose: 100 mg Documented by: (1) Alcoholic hepatitis Ascites presence: with ascites Qualified Code(s): K70.11 - Alcoholic hepatitis with ascites
[2021-03-22] MEDS: MIRTAZAPINE TAB 15 MG TAB PO SCH (21:08)
[2021-03-22] MEDS: MONTELUKAST SODIUM 10 MG TABLET PO SCH (21:09)
[2021-03-23 07:20] LABS: Basophils # (auto) 0.02 K/uL (0-0.2); Basophils % (auto) 0.1 %; Eosinophils # (auto) 0.05 K/uL (0-0.5); Eosinophils % (auto) 0.3 %; Hematocrit (blood only) 39.3 % (42-52); Hemoglobin 13.3 g/dL (14.0-18.0); Immature Granulocytes # (auto) 0.09 K/uL (0.00-0.02); Immature Granulocytes % (auto) 0.6 %; Lymphocytes # (auto) 1.37 K/uL (1.2-3.4); Lymphocytes % (auto) 9.5 %; Mean Corpuscular Hemoglobin 34.7 pg (25-34); Mean Corpuscular Hgb Conc 33.8 g/dL (32-36); Mean Corpuscular Volume 102.6 fL (80-100); Mean Platelet Volume 11.9 fL (7.4-10.4); Monocytes # (auto) 2.49 K/uL (0.11-0.59); Monocytes % (auto) 17.2 %; Neutrophils # (auto) 10.42 K/uL (1.4-6.5); Neutrophils % (auto) 72.3 %; Platelet Count 178 K/uL (130-400); RDW Coefficient of Variation 20.9 % (11.5-14.5); RDW Standard Deviation 76.3 fL (36.4-46.3); Red Blood Count 3.83 M/uL (4.7-6.1); White Blood Count 14.44 K/uL (4.8-10.8)
[2021-03-23 07:32] LABS: INR 1.6 (0.9-1.1); Prothrombin Time 16.1 Seconds (9.0-12.0)
[2021-03-23 08:05] LABS: Anisocytosis Present; Giant Platelets 1+; Howell-Jolly Bodies 1+; Macrocytosis Present; Polychromasia 1+; Target Cells 1+
[2021-03-23] MEDS: FOLIC ACID 1 MG TAB PO SCH (08:10)
[2021-03-23] MEDS: predniSONE 20 MG TAB PO SCH (08:10)
[2021-03-23] MEDS: THIAMINE HCL 100 MG TAB PO SCH (08:10)
[2021-03-23] MEDS: CETIRIZINE HCL 10 MG TABLET PO SCH (08:10)
[2021-03-23] MEDS: PROPRANOLOL HCL 10 MG TAB PO SCH (08:10)
[2021-03-23] MEDS: PANTOprazole 40 MG TAB PO SCH (08:10)
[2021-03-23] MEDS: amLODIPine BESYLATE 5 MG TAB PO SCH (08:10)
[2021-03-23] MEDS: GABAPENTIN 400 MG CAP PO SCH ×3 (08:11→21:02)
[2021-03-23] MEDS: FLUTICASONE/VILANTEROL 200/25MCG 14 PUFFS/INHALER INH SCH (08:11)
[2021-03-23] MEDS: MULTIVITAMIN TAB PO SCH (08:11)
[2021-03-23] MEDS: busPIRone 15 MG TAB PO SCH ×3 (08:11→21:02)
[2021-03-23] MEDS: buPROPion SR 150 MG TABCR PO SCH ×2 (08:11→21:01)
[2021-03-23] MEDS: FLUTICASONE PROPIONATE NA SPR 16 GM BTL SCH (08:11)
[2021-03-23] MEDS: CYANOCOBALAMIN (VITAMIN B-12) 100 MCG TABLET PO SCH (08:11)
[2021-03-23 08:13] LABS: Alanine Aminotransferase 37 U/L (12-78); Albumin Level 2.2 gm/dl (3.4-5.0); Alkaline Phosphatase 241 U/L (45-117); Aspartate Aminotransferase 121 U/L (15-37); Bilirubin,Total 23.9 mg/dl (0.2-1); Blood Urea Nitrogen 6 mg/dl (7-18); Calcium 8.4 mg/dl (8.5-10.1); Carbon Dioxide 26 mmol/L (21-32); Chloride 104 mmol/L (98-107); Glucose 99 mg/dl (70-99); Magnesium 1.7 mg/dl (1.8-2.4); Phosphorus 4.1 mg/dl (2.5-4.9); Sodium 137 mmol/L (136-145)
[2021-03-23 08:14] LABS: Potassium 3.2 mmol/L (3.5-5.1)
[2021-03-23] MEDS ORDERED: POTASSIUM CHLORIDE CRTAB 20 MEQ TABCR PO STA (08:23)
[2021-03-23] MEDS: LACTULOSE SYRUP 30 GM/45 ML UDP PO SCH ×2 (14:36→21:07)
--- NOTE | 2021-03-23 16:44 | Hospitalist Progress Note ---
Date of Service March 23, 2021 Assessment & Plan (1) Alcoholic hepatitis: Plan: Presented with very high LFTs with obstructive feature-with total bilirubin of 26, AST 188, ALT 46 and alkaline phos 303 as of 03/22/2021 Present on admission with Alcohol intoxication CT abd/pelvis showed enlarged fatty liver with mild cirrhosis. Small amount of ascites. Elevated AST on admission 248 then dropped to 199 today Started on intravenous Rocephin 2 gm IV daily Gastro on board -appreciate input and recommendation Gastro airfield operations specialist recommended to transfer to a tertiary care center to evaluate for for possible liver failure. [facility] [place] specialist recommended keeping patient at [facility] and treatment for possible acetaminophen toxicity. Completed the acetylcysteine regimen Case discussed with Dr. Stark that recommended steroid therapy after r/o SBP S/P paracentesis done where 950ml ascites fluid removed, will follow ascites culture and gram stain Continue IV albumin for now-discontinue lateral Ascites Gram stain and culture were negative, no evidence of SBP Intravenous ceftriaxone was discontinued Started on prednisone 40 mg daily for for 28 days as per GI Clinically much better today but initially wanted to leave the hospital After a long conversation with the patient he agreed to stay in the hospital for couple of days He will get PT and OT evaluation in case he wants to be discharged in a day or 2 He was strongly advised to go for inpatient rehab-this was extensively discussed with the significant other (2) Ascites: Plan: S/P paracentesis done where 950ml ascites fluid removed, will follow ascites culture and gram stain Continue IV albumin for now Ascites Gram stain and culture were negative, no evidence of SBP Intravenous ceftriaxone was discontinued Alcohol intoxication History of alcohol abuse Alcohol level 348 on admission Previous history of alcohol withdrawal and DT in the past Continue Ativan and gabapentin alcohol withdrawn protocol Counseling on alcohol cessation Continue thiamine and Folic acid Consider inpatient alcohol rehab Continue monitor closely for sign of alcohol withdraw and DT No signs and/or symptoms of withdrawal Pancreatic Mass CT showed 3.7 cm heterogeneous pancreatic tail lesion. Gastro recommended outpatient EUS in 4 weeks to evaluate the panc lesion however this is likely a WON/necroma related to prior pancreatitis. Follow-up pancreatic MRI with contrast recommended for further evaluation. Elevated lactic acid Possible related to alcohol intoxication, but need to r/o infection/SBP Received IVF lactic acid and WBC normalized Continue Rocephin IV for now Electrolytes abnormalities Mostly related to alcohol abuse and poor oral intake K 2.8, Phos 1.8 Electrolytes replaced Continue monitor electrolytes closely Elevated INR Mostly related to acute alcohol hepatitis/ascites INR 1.5 today Received Vit K on admission Continue monitor INR and if above 2, will give vit K No sign of bleeding and will recheck INR Will give more vitamin K orally DVT px SCD due to elevate INR and history of intermittent epistaxis CODE STATUS FULL CODE Patient requesting for referral to be updated of plan of care. Ms. Wendy Matute, contact #[phone]. Admission and Anticipated Discharge Date Admission Date: March 18, 2021 Subjective 03/22/2021 The patient was seen and examined in telemetry unit He remains pleasantly confused and has been requiring one-to-one sitter He is generally weak but does not have any acute distress 03/23/2021 The patient was seen and examined in telemetry unit He has been much better today and seem to be more rational He was advised that he needs to be in the hospital for a few days Remains extremely weak and lethargic Review of Systems Review of Systems: As per HPI, all 10 systems reviewed, all other ROS negative Physical Exam Physical Exam: Lying in bed comfortably Constitutional: well developed, well nourished, + ill appearing and + obese ENMT: external ear and nose normal, oropharynx normal Neck: trachea midline, no thyromegaly Respiratory: + respiratory distress (Minimal distress at rest) Auscultation: + diminished lung sounds and + crackles (Minimal bibasilar crackles) Cardiovascular: Rate/Rhythm: regular rate and regular rhythm; not tachycardic Heart Sounds: normal S1 and normal S2; no murmur Extremities: + edema (1+ edema bilaterally) Gastrointestinal (Abdomen): Inspection/Auscultation: + abdomen distended and normal bowel sounds Percussion/Palpation: + abdomen tender (Mildly tender all over) and abdomen soft; no guarding Musculoskeletal: No acute arthritis in any joint Neurologic: Alert and awake. Generally very weak and lethargic Results & Data Results & Data ([facility]) Vital Signs (Past 12 Hours) Vital Signs Temp Pulse Pulse Resp BP Pulse Ox 03/23/21 12:18 36.7 C 76 18 111/75 91 03/23/21 09:01 79 03/23/21 07:58 36.9 C 82 18 116/78 90 Laboratory Results Short CBC 03/23/21 Range/Units 06:44 WBC 14.44 H (4.8-10.8) K/uL Hgb 13.3 L (14.0-18.0) g/dL Hct 39.3 L (42-52) % Plt Count 178 (130-400) K/uL BMP 03/23/21 06:44 Sodium 137 Potassium 3.2 L D Chloride 104 Carbon Dioxide 26 BUN 6 L Creatinine Glucose 99 Calcium 8.4 L Liver Function 03/23/21 Range/Units 06:44 Total Bilirubin 23.9 H (0.2-1) mg/dl AST 121 H (15-37) U/L ALT 37 (12-78) U/L Alkaline Phosphatase 241 H (45-117) U/L Albumin 2.2 L (3.4-5.0) gm/dl Medications Administered Current Inpatient Medications Acetaminophen (Acetaminophen 325 Mg Tab) 325 mg PO Q6H PRN PRN Reason: Mild Pain Stop: 04/17/21 05:48 Amlodipine Besylate (Amlodipine Besylate 5 Mg Tab) 2.5 mg PO DAILY [facility] Stop: 04/17/21 08:59 Last Admin: 03/23/21 08:10 Dose: 2.5 mg Documented by: Bupropion HCl (Bupropion Sr 150 Mg Tabcr) 150 mg PO BID [facility] Stop: 04/17/21 08:59 Last Admin: 03/23/21 08:11 Dose: 150 mg Documented by: Buspirone HCl (Buspirone 15 Mg Tab) 30 mg PO TID [facility] Stop: 04/17/21 08:59 Last Admin: 03/23/21 15:58 Dose: 30 mg Documented by: Cetirizine HCl (Cetirizine Hcl 10 Mg Tablet) 10 mg PO DAILY [facility] Stop: 04/17/21 08:59 Last Admin: 03/23/21 08:10 Dose: 10 mg Documented by: Clonidine HCl (Clonidine Hcl 0.1 Mg Tab) 0.1 mg PO BID PRN PRN Reason: for SBP above 170 Stop: 04/18/21 10:15 Cyanocobalamin (Cyanocobalamin (Vitamin B-12) 100 Mcg Tablet) 100 mcg PO DAILY [facility] Stop: 04/17/21 08:59 Last Admin: 03/23/21 08:11 Dose: 100 mcg Documented by: Fluticasone Propionate (Fluticasone Propionate Na Spr 16 Gm Btl) 2 sprays NA DAILY [facility] Stop: 04/17/21 08:59 Last Admin: 03/23/21 08:11 Dose: 2 sprays Documented by: Fluticasone/Vilanterol (Fluticasone/Vilanterol 200/25mcg 14 Puffs/Inhaler) 1 puffs INH DAILY [facility] Stop: 04/17/21 08:59 Last Admin: 03/23/21 08:11 Dose: 1 puffs Documented by: Folic Acid (Folic Acid 1 Mg Tab) 1 mg PO DAILY [facility] Stop: 04/17/21 08:59 Last Admin: 03/23/21 08:10 Dose: 1 mg Documented by: Gabapentin (Gabapentin 400 Mg Cap) 400 mg PO TID [facility] Stop: 04/17/21 08:59 Last Admin: 03/23/21 15:58 Dose: 400 mg Documented by: Lorazepam (Ativan) 1 mg in 2 mls @ 2 mls/min IV UD PRN; Protocol PRN Reason: EtOH Withdrawl AWSS Score 6,7 Stop: 04/17/21 05:48 Lorazepam (Ativan) 2 mg in 4 mls @ 4 mls/min IV UD PRN; Protocol PRN Reason: EtOH Withdrawl AWSS Score 8,9 Stop: 04/17/21 05:48 Last Admin: 03/19/21 06:28 Dose: 4 mls/min Documented by: Lorazepam (Ativan) 3 mg in 6 mls @ 4 mls/min IV ONCE PRN; Protocol PRN Reason: EtOH Withdrawl AWSS Score >=10 Stop: 04/17/21 05:48 Promethazine HCl 12.5 mg/ (Sodium Chloride) 50.5 mls @ 202 mls/hr IV Q6H PRN PRN Reason: Nausea And Vomiting Stop: 04/17/21 05:48 Lactulose (Lactulose Syrup 30 Gm/45 Ml Udp) 30 gm PO BID [facility] Stop: 04/22/21 12:29 Last Admin: 03/23/21 14:36 Dose: Not Given Documented by: Mirtazapine (Mirtazapine Tab 15 Mg Tab) 15 mg PO HS [facility] Stop: 04/17/21 20:59 Last Admin: 03/22/21 21:08 Dose: 15 mg Documented by: Montelukast Sodium (Montelukast Sodium 10 Mg Tablet) 10 mg PO HS [facility] Stop: 04/17/21 20:59 Last Admin: 03/22/21 21:09 Dose: 10 mg Documented by: Multivitamins (Multivitamin Tab) 1 tab PO DAILY [facility] Stop: 04/17/21 08:59 Last Admin: 03/23/21 08:11 Dose: 1 tab Documented by: Oxycodone HCl (Oxycodone Hcl Ir 5 Mg Tab (Immediate Release)) 5 mg PO Q4H PRN PRN Reason: Pain Stop: 04/01/21 05:48 Pantoprazole Sodium (Pantoprazole 40 Mg Tab) 40 mg PO DAILY [facility] Stop: 04/17/21 08:59 Last Admin: 03/23/21 08:10 Dose: 40 mg Documented by: Prednisone (Prednisone 20 Mg Tab) 40 mg PO DAILY [facility] Stop: 04/21/21 08:59 Last Admin: 03/23/21 08:10 Dose: 40 mg Documented by: Propranolol HCl (Propranolol Hcl 10 Mg Tab) 10 mg PO DAILY [facility] Stop: 04/18/21 08:59 Last Admin: 03/23/21 08:10 Dose: 10 mg Documented by: Thiamine HCl (Thiamine Hcl 100 Mg Tab) 100 mg PO DAILY [facility] Stop: 04/17/21 08:59 Last Admin: 03/23/21 08:10 Dose: 100 mg Documented by: (1) Alcoholic hepatitis Ascites presence: with ascites Qualified Code(s): K70.11 - Alcoholic hepatitis with ascites
[2021-03-23] MEDS: MIRTAZAPINE TAB 15 MG TAB PO SCH (21:02)
[2021-03-23] MEDS: MONTELUKAST SODIUM 10 MG TABLET PO SCH (21:03)
[2021-03-24 07:43] LABS: Hematocrit (blood only) 40.8 % (42-52); Hemoglobin 13.9 g/dL (14.0-18.0); Mean Corpuscular Hemoglobin 35.5 pg (25-34); Mean Corpuscular Hgb Conc 34.1 g/dL (32-36); Mean Corpuscular Volume 104.1 fL (80-100); Mean Platelet Volume 11.8 fL (7.4-10.4); Platelet Count 230 K/uL (130-400); RDW Coefficient of Variation 21.1 % (11.5-14.5); RDW Standard Deviation 79.7 fL (36.4-46.3); Red Blood Count 3.92 M/uL (4.7-6.1); White Blood Count 16.39 K/uL (4.8-10.8)
[2021-03-24] MEDS: FOLIC ACID 1 MG TAB PO SCH (08:03)
[2021-03-24] MEDS: amLODIPine BESYLATE 5 MG TAB PO SCH (08:03)
[2021-03-24] MEDS: MULTIVITAMIN TAB PO SCH (08:03)
[2021-03-24] MEDS: GABAPENTIN 400 MG CAP PO SCH ×3 (08:03→21:06)
[2021-03-24] MEDS: CETIRIZINE HCL 10 MG TABLET PO SCH (08:04)
[2021-03-24] MEDS: buPROPion SR 150 MG TABCR PO SCH ×2 (08:04→21:05)
[2021-03-24] MEDS: PANTOprazole 40 MG TAB PO SCH (08:04)
[2021-03-24] MEDS: PROPRANOLOL HCL 10 MG TAB PO SCH (08:04)
[2021-03-24] MEDS: FLUTICASONE PROPIONATE NA SPR 16 GM BTL SCH (08:04)
[2021-03-24] MEDS: busPIRone 15 MG TAB PO SCH ×3 (08:04→21:05)
[2021-03-24] MEDS: THIAMINE HCL 100 MG TAB PO SCH (08:04)
[2021-03-24] MEDS: CYANOCOBALAMIN (VITAMIN B-12) 100 MCG TABLET PO SCH (08:04)
[2021-03-24] MEDS: FLUTICASONE/VILANTEROL 200/25MCG 14 PUFFS/INHALER INH SCH (08:05)
[2021-03-24 08:13] LABS: Basophils # (auto) 0.03 K/uL (0-0.2); Basophils % (auto) 0.2 %; Eosinophils # (auto) 0.09 K/uL (0-0.5); Eosinophils % (auto) 0.5 %; Howell-Jolly Bodies 1+; Immature Granulocytes # (auto) 0.08 K/uL (0.00-0.02); Immature Granulocytes % (auto) 0.5 %; Lymphocytes # (auto) 2.36 K/uL (1.2-3.4); Lymphocytes % (auto) 14.4 %; Macrocytosis Present; Monocytes # (auto) 1.97 K/uL (0.11-0.59); Neutrophils # (auto) 11.86 K/uL (1.4-6.5); Neutrophils % (auto) 72.4 %; Target Cells 1+
[2021-03-24 09:54] LABS: Alanine Aminotransferase 43 U/L (12-78); Albumin Level 2.3 gm/dl (3.4-5.0); Alkaline Phosphatase 257 U/L (45-117); Aspartate Aminotransferase 120 U/L (15-37); Bilirubin,Total 22.3 mg/dl (0.2-1); Blood Urea Nitrogen 8 mg/dl (7-18); Calcium 8.8 mg/dl (8.5-10.1); Carbon Dioxide 27 mmol/L (21-32); Chloride 104 mmol/L (98-107); Glucose 94 mg/dl (70-99); Magnesium 1.8 mg/dl (1.8-2.4); Phosphorus 3.1 mg/dl (2.5-4.9); Potassium 3.5 mmol/L (3.5-5.1); Sodium 137 mmol/L (136-145)
[2021-03-24] MEDS: LACTULOSE SYRUP 30 GM/45 ML UDP PO SCH (10:09)
[2021-03-24] MEDS: predniSONE 20 MG TAB PO SCH (10:30)
[2021-03-24] MEDS: PANCREAZE (LIPASE 10,500U) CAP PO SCH ×2 (11:25→16:59)
[2021-03-24] MEDS: LORazepam 0.5 MG TAB PO PRN ×2 (11:28→21:05)
--- NOTE | 2021-03-24 15:51 | Hospitalist Progress Note ---
Date of Service March 24, 2021 Assessment & Plan (1) Alcoholic hepatitis: Plan: Presented with very high LFTs with obstructive feature-with total bilirubin of 26, AST 188, ALT 46 and alkaline phos 303 as of 03/22/2021 Present on admission with Alcohol intoxication CT abd/pelvis showed enlarged fatty liver with mild cirrhosis. Small amount of ascites. Elevated AST on admission 248 then dropped to 199 today Started on intravenous Rocephin 2 gm IV daily Gastro on board -appreciate input and recommendation Gastro station usher recommended to transfer to a tertiary care center to evaluate for for possible liver failure. [facility] GI specialist recommended keeping patient at [facility] and treatment for possible acetaminophen toxicity. Completed the acetylcysteine regimen Case discussed with Dr. Stark that recommended steroid therapy after r/o SBP S/P paracentesis done where 950ml ascites fluid removed, will follow ascites culture and gram stain Continue IV albumin for now-discontinue lateral Ascites Gram stain and culture were negative, no evidence of SBP Intravenous ceftriaxone was discontinued Started on prednisone 40 mg daily for for 28 days as per GI Clinically much better today but initially wanted to leave the hospital After a long conversation with the patient he agreed to stay in the hospital for couple of days He will get PT and OT evaluation in case he wants to be discharged in a day or 2 He was strongly advised to go for inpatient rehab-this was extensively discussed with the significant other Has had PT evaluation and recommended rehab Discussed with the patient for the rehab placement-he seemed to be agreeable Clinically better today we will continue current management (2) Ascites: Plan: S/P paracentesis done where 950ml ascites fluid removed, will follow ascites c ulture and gram stain Continue IV albumin for now Ascites Gram stain and culture were negative, no evidence of SBP Intravenous ceftriaxone was discontinued Alcohol intoxication History of alcohol abuse Alcohol level 348 on admission Previous history of alcohol withdrawal and DT in the past Continue Ativan and gabapentin alcohol withdrawn protocol Counseling on alcohol cessation Continue thiamine and Folic acid Consider inpatient alcohol rehab Continue monitor closely for sign of alcohol withdraw and DT No signs and/or symptoms of withdrawal Will give oral Ativan as needed for anxiety Pancreatic Mass CT showed 3.7 cm heterogeneous pancreatic tail lesion. Gastro recommended outpatient EUS in 4 weeks to evaluate the panc lesion however this is likely a WON/necroma related to prior pancreatitis. Follow-up pancreatic MRI with contrast recommended for further evaluation. Elevated lactic acid Possible related to alcohol intoxication, but need to r/o infection/SBP Received IVF lactic acid and WBC normalized Continue Rocephin IV for now Electrolytes abnormalities Mostly related to alcohol abuse and poor oral intake K 2.8, Phos 1.8 Electrolytes replaced Continue monitor electrolytes closely Elevated INR Mostly related to acute alcohol hepatitis/ascites INR 1.5 today Received Vit K on admission Continue monitor INR and if above 2, will give vit K No sign of bleeding and will recheck INR Will give more vitamin K orally DVT px SCD due to elevate INR and history of intermittent epistaxis CODE STATUS FULL CODE Patient requesting for referral to be updated of plan of care. Ms. Wendy Matute, contact #[phone]. Admission and Anticipated Discharge Date Admission Date: March 18, 2021 Subjective 03/22/2021 The patient was seen and examined in telemetry unit He remains pleasantly confused and has been requiring one-to-one sitter He is generally weak but does not have any acute distress 03/23/2021 The patient was seen and examined in telemetry unit He has been much better today and seem to be more rational He was advised that he needs to be in the hospital for a few days Remains extremely weak and lethargic 03/24/2021 The patient was seen and examined in telemetry unit He has been much better today No more confusion but remains extremely weak and tired He has had PT evaluation and recommended rehab He has been moving bowel normally Review of Systems Review of Systems: As per HPI, all 10 systems reviewed, all other ROS negative Physical Exam Physical Exam: Lying in bed comfortably Constitutional: well developed, well nourished, + ill appearing and + obese Eyes: Icterus sclera ENMT: external ear and nose normal, oropharynx normal Neck: trachea midline, no thyromegaly Respiratory: + respiratory distress (Minimal distress at rest) Auscultation: + diminished lung sounds and + crackles (Minimal bibasilar crac kles) Cardiovascular: Rate/Rhythm: regular rate and regular rhythm; not tachycardic Heart Sounds: normal S1 and normal S2; no murmur Extremities: + edema (1+ edema bilaterally) Gastrointestinal (Abdomen): Inspection/Auscultation: + abdomen distended and normal bowel sounds Percussion/Palpation: + abdomen tender (Mildly tender all over) and abdomen soft; no guarding Musculoskeletal: No acute arthritis in any joint Skin: Evaluation discoloration of the skin Neurologic: Alert, awake and oriented x3, generally weak Results & Data Results & Data ([facility]) Vital Signs (Past 12 Hours) Vital Signs Temp Pulse Pulse Resp BP BP Pulse Ox 03/24/21 15:17 37.4 C 83 17 100/62 92 03/24/21 11:35 36.7 C 83 17 112/73 92 03/24/21 09:49 85 03/24/21 07:30 37.0 C 83 19 113/78 93 03/24/21 03:56 36.5 C 73 20 115/78 94 Laboratory Results Short CBC 03/24/21 Range/Units 07:18 WBC 16.39 H (4.8-10.8) K/uL Hgb 13.9 L (14.0-18.0) g/dL Hct 40.8 L (42-52) % Plt Count 230 (130-400) K/uL BMP 03/24/21 07:18 Sodium 137 Potassium 3.5 Chloride 104 Carbon Dioxide 27 BUN 8 Creatinine Glucose 94 Calcium 8.8 Liver Function 03/24/21 Range/Units 07:18 Total Bilirubin 22.3 H (0.2-1) mg/dl AST 120 H (15-37) U/L ALT 43 (12-78) U/L Alkaline Phosphatase 257 H (45-117) U/L Albumin 2.3 L (3.4-5.0) gm/dl Medications Administered Current Inpatient Medications Acetaminophen (Acetaminophen 325 Mg Tab) 325 mg PO Q6H PRN PRN Reason: Mild Pain Stop: 04/17/21 05:48 Amlodipine Besylate (Amlodipine Besylate 5 Mg Tab) 2.5 mg PO DAILY [facility] Stop: 04/17/21 08:59 Last Admin: 03/24/21 08:03 Dose: 2.5 mg Documented by: Lipase/Protease/Amylase (Pancreaze (Lipase 10,500u) Cap) 1 cap PO TIDM [facility] Stop: 04/23/21 11:59 Last Admin: 03/24/21 11:25 Dose: 1 cap Documented by: Bupropion HCl (Bupropion Sr 150 Mg Tabcr) 150 mg PO BID [facility] Stop: 04/17/21 08:59 Last Admin: 03/24/21 08:04 Dose: 150 mg Documented by: Buspirone HCl (Buspirone 15 Mg Tab) 30 mg PO TID [facility] Stop: 04/17/21 08:59 Last Admin: 03/24/21 14:33 Dose: 30 mg Documented by: Cetirizine HCl (Cetirizine Hcl 10 Mg Tablet) 10 mg PO DAILY [facility] Stop: 04/17/21 08:59 Last Admin: 03/24/21 08:04 Dose: 10 mg Documented by: Clonidine HCl (Clonidine Hcl 0.1 Mg Tab) 0.1 mg PO BID PRN PRN Reason: for SBP above 170 Stop: 04/18/21 10:15 Cyanocobalamin (Cyanocobalamin (Vitamin B-12) 100 Mcg Tablet) 100 mcg PO DAILY [facility] Stop: 04/17/21 08:59 Last Admin: 03/24/21 08:04 Dose: 100 mcg Documented by: Fluticasone Propionate (Fluticasone Propionate Na Spr 16 Gm Btl) 2 sprays NA DAILY [facility] Stop: 04/17/21 08:59 Last Admin: 03/24/21 08:04 Dose: 2 sprays Documented by: Fluticasone/Vilanterol (Fluticasone/Vilanterol 200/25mcg 14 Puffs/Inhaler) 1 puffs INH DAILY [facility] Stop: 04/17/21 08:59 Last Admin: 03/24/21 08:05 Dose: 1 puffs Documented by: Folic Acid (Folic Acid 1 Mg Tab) 1 mg PO DAILY [facility] Stop: 04/17/21 08:59 Last Admin: 03/24/21 08:03 Dose: 1 mg Documented by: Gabapentin (Gabapentin 400 Mg Cap) 400 mg PO TID [facility] Stop: 04/17/21 08:59 Last Admin: 03/24/21 14:33 Dose: 400 mg Documented by: Promethazine HCl 12.5 mg/ (Sodium Chloride) 50.5 mls @ 202 mls/hr IV Q6H PRN PRN Reason: Nausea And Vomiting Stop: 04/17/21 05:48 Lorazepam (Lorazepam 0.5 Mg Tab) 0.5 mg PO Q8H PRN PRN Reason: Anxiety Stop: 04/23/21 10:16 Last Admin: 03/24/21 11:28 Dose: 0.5 mg Documented by: Mirtazapine (Mirtazapine Tab 15 Mg Tab) 15 mg PO HS [facility] Stop: 04/17/21 20:59 Last Admin: 03/23/21 21:02 Dose: 15 mg Documented by: Montelukast Sodium (Montelukast Sodium 10 Mg Tablet) 10 mg PO HS [facility] Stop: 04/17/21 20:59 Last Admin: 03/23/21 21:03 Dose: 10 mg Documented by: Multivitamins (Multivitamin Tab) 1 tab PO DAILY [facility] Stop: 04/17/21 08:59 Last Admin: 03/24/21 08:03 Dose: 1 tab Documented by: Oxycodone HCl (Oxycodone Hcl Ir 5 Mg Tab (Immediate Release)) 5 mg PO Q4H PRN PRN Reason: Pain Stop: 04/01/21 05:48 Pantoprazole Sodium (Pantoprazole 40 Mg Tab) 40 mg PO DAILY [facility] Stop: 04/17/21 08:59 Last Admin: 03/24/21 08:04 Dose: 40 mg Documented by: Prednisone (Prednisone 20 Mg Tab) 40 mg PO DAILY [facility] Stop: 04/21/21 08:59 Last Admin: 03/24/21 10:30 Dose: 40 mg Documented by: Propranolol HCl (Propranolol Hcl 10 Mg Tab) 10 mg PO DAILY [facility] Stop: 04/18/21 08:59 Last Admin: 03/24/21 08:04 Dose: 10 mg Documented by: Thiamine HCl (Thiamine Hcl 100 Mg Tab) 100 mg PO DAILY [facility] Stop: 04/17/21 08:59 Last Admin: 03/24/21 08:04 Dose: 100 mg Documented by: (1) Alcoholic hepatitis Ascites presence: with ascites Qualified Code(s): K70.11 - Alcoholic hepatitis with ascites
[2021-03-24] MEDS: MONTELUKAST SODIUM 10 MG TABLET PO SCH (21:05)
[2021-03-25] MEDS: MIRTAZAPINE TAB 15 MG TAB PO SCH ×2 (00:31→20:21)
[2021-03-25 07:39] LABS: Alanine Aminotransferase 55 U/L (12-78); Albumin Level 2.2 gm/dl (3.4-5.0); Alkaline Phosphatase 261 U/L (45-117); Aspartate Aminotransferase 163 U/L (15-37); Bilirubin,Total 24.4 mg/dl (0.2-1); Blood Urea Nitrogen 9 mg/dl (7-18); Calcium 8.6 mg/dl (8.5-10.1); Carbon Dioxide 22 mmol/L (21-32); Chloride 103 mmol/L (98-107); Glucose 148 mg/dl (70-99); Magnesium 1.6 mg/dl (1.8-2.4); Phosphorus 3.3 mg/dl (2.5-4.9); Sodium 135 mmol/L (136-145)
[2021-03-25] MEDS: PROPRANOLOL HCL 10 MG TAB PO SCH (08:04)
[2021-03-25] MEDS: PANTOprazole 40 MG TAB PO SCH (08:05)
[2021-03-25] MEDS: MULTIVITAMIN TAB PO SCH (08:05)
[2021-03-25] MEDS: FOLIC ACID 1 MG TAB PO SCH (08:05)
[2021-03-25] MEDS: GABAPENTIN 400 MG CAP PO SCH ×3 (08:05→20:21)
[2021-03-25] MEDS: CYANOCOBALAMIN (VITAMIN B-12) 100 MCG TABLET PO SCH (08:05)
[2021-03-25] MEDS: PANCREAZE (LIPASE 10,500U) CAP PO SCH ×3 (08:06→17:15)
[2021-03-25] MEDS: buPROPion SR 150 MG TABCR PO SCH ×2 (08:06→20:21)
[2021-03-25] MEDS: busPIRone 15 MG TAB PO SCH ×3 (08:06→20:22)
[2021-03-25] MEDS: amLODIPine BESYLATE 5 MG TAB PO SCH (08:07)
[2021-03-25] MEDS: FLUTICASONE/VILANTEROL 200/25MCG 14 PUFFS/INHALER INH SCH (08:08)
[2021-03-25] MEDS: FLUTICASONE PROPIONATE NA SPR 16 GM BTL SCH (08:08)
[2021-03-25] MEDS: predniSONE 20 MG TAB PO SCH (08:09)
[2021-03-25] MEDS: LORazepam 0.5 MG TAB PO PRN (08:14)
[2021-03-25] MEDS ORDERED: LORazepam 0.5 MG TAB PO PRN (09:50)
[2021-03-25] MEDS: CETIRIZINE HCL 10 MG TABLET PO SCH (11:33)
[2021-03-25] MEDS: THIAMINE HCL 100 MG TAB PO SCH (11:34)
--- NOTE | 2021-03-25 14:36 | Hospitalist Progress Note ---
Date of Service March 25, 2021 Assessment & Plan (1) Alcoholic hepatitis: Plan: Presented with very high LFTs with obstructive feature-with total bilirubin of 26, AST 188, ALT 46 and alkaline phos 303 as of 03/22/2021 Present on admission with Alcohol intoxication CT abd/pelvis showed enlarged fatty liver with mild cirrhosis. Small amount of ascites. Elevated AST on admission 248 then dropped to 199 today Started on intravenous Rocephin 2 gm IV daily Gastro on board -appreciate input and recommendation Gastro enterprise applications manager recommended to transfer to a tertiary care center to evaluate for for possible liver failure. [facility] [place] [place] GI specialist recommended keeping patient at [facility] and treatment for possible acetaminophen toxicity. Completed the acetylcysteine regimen Case discussed with Dr. Stark that recommended steroid therapy after r/o SBP S/P paracentesis done where 950ml ascites fluid removed, will follow ascites culture and gram stain Continue IV albumin for now-discontinue lateral Ascites Gram stain and culture were negative, no evidence of SBP Intravenous ceftriaxone was discontinued Started on prednisone 40 mg daily for for 28 days as per GI Clinically much better today but initially wanted to leave the hospital After a long conversation with the patient he agreed to stay in the hospital for couple of days He will get PT and OT evaluation in case he wants to be discharged in a day or 2 He was strongly advised to go for inpatient rehab-this was extensively discussed with the significant other Has had PT evaluation and recommended rehab Discussed with the patient for the rehab placement-he seemed to be agreeable Remains stable and awaiting placement (2) Ascites: Plan: S/P paracentesis done where 950ml ascites fluid removed, will follow ascites culture and gram stain Continue IV albumin for now Ascites Gram stain and culture were negative, no evidence of SBP Intravenous ceftriaxone was discontinued Alcohol intoxication History of alcohol abuse Alcohol level 348 on admission Previous history of alcohol withdrawal and DT in the past Continue Ativan and gabapentin alcohol withdrawn protocol Counseling on alcohol cessation Continue thiamine and Folic acid Consider inpatient alcohol rehab Continue monitor closely for sign of alcohol withdraw and DT No signs and/or symptoms of withdrawal Will give oral Ativan as needed for anxiety Ativan doses have been decreased to 0.25 mg every [address] showed 3.7 cm heterogeneous pancreatic tail lesion. Gastro recommended outpatient EUS in 4 weeks to evaluate the panc lesion however this is likely a WON/necroma related to prior pancreatitis. Follow-up pancreatic MRI with contrast recommended for further evaluation. Elevated lactic acid Possible related to alcohol intoxication, but need to r/o infection/SBP Received IVF lactic acid and WBC normalized Continue Rocephin IV for now Electrolytes abnormalities Mostly related to alcohol abuse and poor oral intake K 2.8, Phos 1.8 Electrolytes replaced Continue monitor electrolytes closely Elevated INR Mostly related to acute alcohol hepatitis/ascites INR 1.5 today Received Vit K on admission Continue monitor INR and if above 2, will give vit K No sign of bleeding and will recheck INR Will give more vitamin K orally DVT px SCD due to elevate INR and history of intermittent epistaxis CODE STATUS FULL CODE Patient requesting for referral to be updated of plan of care. Ms. Wendy Matute, contact #[phone]. Admission and Anticipated Discharge Date Admission Date: March 18, 2021 Subjective 03/22/2021 The patient was seen and examined in telemetry unit He remains pleasantly confused and has been requiring one-to-one sitter He is generally weak but does not have any acute distress 03/23/2021 The patient was seen and examined in telemetry unit He has been much better today and seem to be more rational He was advised that he needs to be in the hospital for a few days Remains extremely weak and lethargic 03/24/2021 The patient was seen and examined in telemetry unit He has been much better today No more confusion but remains extremely weak and tired He has had PT evaluation and recommended rehab He has been moving bowel normally 03/25/2021 The patient was seen and examined in telemetry unit He remains weak and lethargic Denies any other symptoms He is willing to go to rehab Review of Systems Review of Systems: As per HPI, all 10 systems reviewed, all other ROS negative Physical Exam Physical Exam: Lying in bed comfortably Constitutional: well developed, well nourished, + ill appearing and + obese ENMT: external ear and nose normal, oropharynx normal Neck: trachea midline, no thyromegaly Respiratory: + respiratory distress (Minimal distress at rest) Auscultation: + diminished lung sounds and + crackles (Minimal bibasilar crackles) Cardiovascular: Rate/Rhythm: regular rate and regular rhythm; not tachycardic Heart Sounds: normal S1 and normal S2; no murmur Extremities: + edema (1+ edema bilaterally) Gastrointestinal (Abdomen): Inspection/Auscultation: + abdomen distended and normal bowel sounds Percussion/Palpation: + abdomen tender (Mildly tender all over) and abdomen soft; no guarding Musculoskeletal: No acute arthritis in any joint Neurologic: Alert, awake and oriented. Generally weak Results & Data Results & Data ([facility]) Vital Signs (Past 12 Hours) Vital Signs Temp Pulse Pulse Resp BP Pulse Ox 03/25/21 12:20 36.3 C L 88 22 126/91 93 03/25/21 08:00 93 H 03/25/21 07:00 36.6 C 90 18 110/81 90 03/25/21 04:00 37.2 C 82 18 125/86 90 Laboratory Results BMP 03/25/21 06:34 Sodium 135 L Potassium 4.0 Chloride 103 Carbon Dioxide 22 BUN 9 Creatinine Glucose 148 H Calcium 8.6 Liver Function 03/25/21 Range/Units 06:34 Total Bilirubin 24.4 H (0.2-1) mg/dl AST 163 H (15-37) U/L ALT 55 (12-78) U/L Alkaline Phosphatase 261 H (45-117) U/L Albumin 2.2 L (3.4-5.0) gm/dl Medications Administered Current Inpatient Medications Acetaminophen (Acetaminophen 325 Mg Tab) 325 mg PO Q6H PRN PRN Reason: Mild Pain Stop: 04/17/21 05:48 Amlodipine Besylate (Amlodipine Besylate 5 Mg Tab) 2.5 mg PO DAILY [facility] Stop: 04/17/21 08:59 Last Admin: 03/25/21 08:07 Dose: 2.5 mg Documented by: Lipase/Protease/Amylase (Pancreaze (Lipase 10,500u) Cap) 1 cap PO TIDM [facility] Stop: 04/23/21 11:59 Last Admin: 03/25/21 11:36 Dose: 1 cap Documented by: Bupropion HCl (Bupropion Sr 150 Mg Tabcr) 150 mg PO BID [facility] Stop: 04/17/21 08:59 Last Admin: 03/25/21 08:06 Dose: 150 mg Documented by: Buspirone HCl (Buspirone 15 Mg Tab) 30 mg PO TID [facility] Stop: 04/17/21 08:59 Last Admin: 03/25/21 08:06 Dose: 30 mg Documented by: Cetirizine HCl (Cetirizine Hcl 10 Mg Tablet) 10 mg PO DAILY [facility] Stop: 04/17/21 08:59 Last Admin: 03/25/21 11:33 Dose: 10 mg Documented by: Clonidine HCl (Clonidine Hcl 0.1 Mg Tab) 0.1 mg PO BID PRN PRN Reason: for SBP above 170 Stop: 04/18/21 10:15 Cyanocobalamin (Cyanocobalamin (Vitamin B-12) 100 Mcg Tablet) 100 mcg PO DAILY [facility] Stop: 04/17/21 08:59 Last Admin: 03/25/21 08:05 Dose: 100 mcg Documented by: Fluticasone Propionate (Fluticasone Propionate Na Spr 16 Gm Btl) 2 sprays NA DAILY [facility] Stop: 04/17/21 08:59 Last Admin: 03/25/21 08:08 Dose: 2 sprays Documented by: Fluticasone/Vilanterol (Fluticasone/Vilanterol 200/25mcg 14 Puffs/Inhaler) 1 puffs INH DAILY [facility] Stop: 04/17/21 08:59 Last Admin: 03/25/21 08:08 Dose: 1 puffs Documented by: Folic Acid (Folic Acid 1 Mg Tab) 1 mg PO DAILY [facility] Stop: 04/17/21 08:59 Last Admin: 03/25/21 08:05 Dose: 1 mg Documented by: Gabapentin (Gabapentin 400 Mg Cap) 400 mg PO TID [facility] Stop: 04/17/21 08:59 Last Admin: 03/25/21 08:05 Dose: 400 mg Documented by: Promethazine HCl 12.5 mg/ (Sodium Chloride) 50.5 mls @ 202 mls/hr IV Q6H PRN PRN Reason: Nausea And Vomiting Stop: 04/17/21 05:48 Lorazepam (Lorazepam 0.5 Mg Tab) 0.25 mg PO Q8H PRN PRN Reason: Anxiety Stop: 04/23/21 10:16 Mirtazapine (Mirtazapine Tab 15 Mg Tab) 15 mg PO HS [facility] Stop: 04/17/21 20:59 Last Admin: 03/25/21 00:31 Dose: 15 mg Documented by: Montelukast Sodium (Montelukast Sodium 10 Mg Tablet) 10 mg PO HS [facility] Stop: 04/17/21 20:59 Last Admin: 03/24/21 21:05 Dose: 10 mg Documented by: Multivitamins (Multivitamin Tab) 1 tab PO DAILY [facility] Stop: 04/17/21 08:59 Last Admin: 03/25/21 08:05 Dose: 1 tab Documented by: Oxycodone HCl (Oxycodone Hcl Ir 5 Mg Tab (Immediate Release)) 5 mg PO Q4H PRN PRN Reason: Pain Stop: 04/01/21 05:48 Pantoprazole Sodium (Pantoprazole 40 Mg Tab) 40 mg PO DAILY [facility] Stop: 04/17/21 08:59 Last Admin: 03/25/21 08:05 Dose: 40 mg Documented by: Prednisone (Prednisone 20 Mg Tab) 40 mg PO DAILY [facility] Stop: 04/21/21 08:59 Last Admin: 03/25/21 08:09 Dose: 40 mg Documented by: Propranolol HCl (Propranolol Hcl 10 Mg Tab) 10 mg PO DAILY [facility] Stop: 04/18/21 08:59 Last Admin: 03/25/21 08:04 Dose: 10 mg Documented by: Thiamine HCl (Thiamine Hcl 100 Mg Tab) 100 mg PO DAILY [facility] Stop: 04/17/21 08:59 Last Admin: 03/25/21 11:34 Dose: 100 mg Documented by: (1) Alcoholic hepatitis Ascites presence: with ascites Qualified Code(s): K70.11 - Alcoholic hepatit is with ascites
[2021-03-25] MEDS: MONTELUKAST SODIUM 10 MG TABLET PO SCH (20:21)
[2021-03-26] MEDS: predniSONE 20 MG TAB PO SCH (08:52)
[2021-03-26] MEDS: THIAMINE HCL 100 MG TAB PO SCH (08:52)
[2021-03-26] MEDS: PROPRANOLOL HCL 10 MG TAB PO SCH (08:52)
[2021-03-26] MEDS: PANTOprazole 40 MG TAB PO SCH (08:53)
[2021-03-26] MEDS: GABAPENTIN 400 MG CAP PO SCH ×3 (08:53→20:40)
[2021-03-26] MEDS: MULTIVITAMIN TAB PO SCH (08:53)
[2021-03-26] MEDS: busPIRone 15 MG TAB PO SCH ×3 (08:54→20:41)
[2021-03-26] MEDS: CETIRIZINE HCL 10 MG TABLET PO SCH (08:54)
[2021-03-26] MEDS: FOLIC ACID 1 MG TAB PO SCH (08:54)
[2021-03-26] MEDS: CYANOCOBALAMIN (VITAMIN B-12) 100 MCG TABLET PO SCH (08:54)
[2021-03-26] MEDS: amLODIPine BESYLATE 5 MG TAB PO SCH (08:55)
[2021-03-26] MEDS: buPROPion SR 150 MG TABCR PO SCH ×2 (08:55→20:41)
[2021-03-26] MEDS: PANCREAZE (LIPASE 10,500U) CAP PO SCH ×3 (08:56→17:52)
[2021-03-26] MEDS: FLUTICASONE/VILANTEROL 200/25MCG 14 PUFFS/INHALER INH SCH (08:57)
[2021-03-26] MEDS: FLUTICASONE PROPIONATE NA SPR 16 GM BTL SCH (08:57)
[2021-03-26 09:40] LABS: Alanine Aminotransferase 60 U/L (12-78); Albumin Level 2.2 gm/dl (3.4-5.0); Alkaline Phosphatase 273 U/L (45-117); Aspartate Aminotransferase 137 U/L (15-37); Bilirubin,Total 23.6 mg/dl (0.2-1); Blood Urea Nitrogen 10 mg/dl (7-18); Calcium 8.7 mg/dl (8.5-10.1); Carbon Dioxide 24 mmol/L (21-32); Chloride 104 mmol/L (98-107); Glucose 98 mg/dl (70-99); Magnesium 2.1 mg/dl (1.8-2.4); Potassium 3.7 mmol/L (3.5-5.1); Sodium 137 mmol/L (136-145)
--- NOTE | 2021-03-26 10:09 | Gastroenterology Progress Note ---
Date of Service March 26, 2021 Assessment & Plan (1) Decompensated hepatic cirrhosis: Plan: 45 year old male admitted w/ abdominal pain, jaundice MDF = 42 started on prednisolone therapy - Not accepted for transfer to liver center - Needs EUS as OP in 4 weeks to evaluate the panc lesion however this is likely a WON/necroma related to prior pancreatitis. - Alcohol cessation - Needs thiamin and folic acid - Elyte replacement per primary team - Prednisolone for 28 days then taper down by 10 mg every 4 days until down to 5 mg then taper down by 5 mg every 4 days then stop - He is still unsure if he is staying in [place] or going back to his house in [place] - Once he decides where he is going he needs to contact GI service to arrange follow up Thank you for allowing us to participate in the care of this patient. Please call with any acute changes, questions or concerns. Please see addendum below with additional recommendation from my supervising physician. (2) Alcoholic hepatitis: (3) Abnormal LFTs: (4) Pancreatic mass: Admission and Anticipated Discharge Date Admission Date: March 18, 2021 Supervising Physician Co-Signing Physician Notes I have personally seen and examined the patient with CESAR Walker. Her note reflects my exam and findings. I agree with her impression and plan. Will need out patient f/u ( Patient prefers [facility] since that is where he is from). Complete ETOH avoidance. Steroid taper. Kwesi Olivarez M.D. Subjective Pt was seen and evaluated Awake, alert and oriented No GI concerns No pain, nausea,vomiting. No GERD Review of Systems Review of Systems: All systems reviewed & are unremarkable except as noted in HPI & below Physical Exam Constitutional: WD/WN, vitals as above Neck: trachea midline, no thyromegaly Respiratory: normal respiratory effort, lungs clear to auscultation Cardiovascular: RRR, no murmur, no edema Gastrointestinal (Abdomen): normal bowel sounds, soft, nontender, no hepatosplenomegaly Skin: no rashes, warm and dry Results & Data ([facility]) Vital Signs (Past 12 Hours) Vital Signs Temp Pulse Pulse Resp BP BP Pulse Ox 03/26/21 07:00 37.0 C 89 16 131/66 99 03/26/21 03:47 36.6 C 75 18 100/65 93 03/26/21 00:32 77 03/25/21 23:19 36.7 C 79 20 109/73 90 (1) Alcoholic hepatitis Ascites presence: with ascites Qualified Code(s): K70.11 - Alcoholic hepatitis with ascites
--- NOTE | 2021-03-26 12:23 | Hospitalist Progress Note ---
Date of Service March 26, 2021 Assessment & Plan (1) Alcoholic hepatitis: Plan: Presented with very high LFTs with obstructive feature-with total bilirubin of 26, AST 188, ALT 46 and alkaline phos 303 as of 03/22/2021 Present on admission with Alcohol intoxication CT abd/pelvis showed enlarged fatty liver with mild cirrhosis. Small amount of ascites. Elevated AST on admission 248 then dropped to 199 today Started on intravenous Rocephin 2 gm IV daily Gastro on board -appreciate input and recommendation Gastro administrative assistant receptionist recommended to transfer to a tertiary care center to evaluate for for possible liver failure[place] [facility] [place] keeping patient [place] [facility] and treatment for possible acetaminophen toxicity. Completed the acetylcysteine regimen Case discussed with Dr. Stark that recommended steroid therapy after r/o SBP S/P paracentesis done where 950ml ascites fluid removed, will follow ascites culture and gram stain Continue IV albumin for now-discontinue lateral Ascites Gram stain and culture were negative, no evidence of SBP Intravenous ceftriaxone was discontinued Started on prednisone 40 mg daily for for 28 days as per GI Clinically much better today but initially wanted to leave the hospital After a long conversation with the patient he agreed to stay in the hospital for couple of days He will get PT and OT evaluation in case he wants to be discharged in a day or 2 He was strongly advised to go for inpatient rehab-this was extensively discussed with the significant other Has had PT evaluation and recommended rehab Discussed with the patient for the rehab placement-he seemed to be agreeable Appreciate GI reevaluation and will need to have outpatient GI follow-up for severe alcoholic hepatitis We will continue steroid on discharge as per GI recommendation Awaiting placement-medically stable to be discharged; the patient wants to go to rehab in [place] with plan to go home in [place] when the rehab is over and he is better. He was strongly advised to have follow-up appointment with center director for his alcoholic hepatitis and pancreatic mass. (2) Ascites: Plan: S/P paracentesis done where 950ml ascites fluid removed, will follow ascites culture and gram stain Continue IV albumin for now Ascites Gram stain and culture were negative, no evidence of SBP Intravenous ceftriaxone was discontinued Alcohol intoxication History of alcohol abuse Alcohol level 348 on admission Previous history of alcohol withdrawal and DT in the past Continue Ativan and gabapentin alcohol withdrawn protocol Counseling on alcohol cessation Continue thiamine and Folic acid Consider inpatient alcohol rehab Continue monitor closely for sign of alcohol withdraw and DT No signs and/or symptoms of withdrawal except minimal tremors involving the outstretched hands Will give oral Ativan as needed for anxiety Ativan doses have been decreased to 0.25 mg every 8 hourly. Does have minimal tremor involving the outstretched hands Pancreatic Mass CT showed 3.7 cm heterogeneous pancreatic tail lesion. Gastro recommended outpatient EUS in 4 weeks to evaluate the panc lesion however this is likely a WON/necroma related to prior pancreatitis. Follow-up pancreatic MRI with contrast recommended for further evaluation. Will need to have GI follow-up as an outpatient Elevated lactic acid Possible related to alcohol intoxication, but need to r/o infection/SBP Received IVF lactic acid and WBC normalized Continue Rocephin IV for now Electrolytes abnormalities Mostly related to alcohol abuse and poor oral intake K 2.8, Phos 1.8 Electrolytes replaced Continue monitor electrolytes closely Elevated INR Mostly related to acute alcohol hepatitis/ascites INR 1.5 today Received Vit K on admission Continue monitor INR and if above 2, will give vit K No sign of bleeding and will recheck INR Will give more vitamin K orally DVT px SCD due to elevate INR and history of intermittent epistaxis CODE STATUS FULL CODE Patient requesting for referral to be updated of plan of care. Ms. Wendy Matute, contact #[phone].-Has been communicating with her regularly Admission and Anticipated Discharge Date Admission Date: March 18, 2021 Subjective 03/22/2021 The patient was seen and examined in telemetry unit He remains pleasantly confused and has been requiring one-to-one sitter He is generally weak but does not have any acute distress 03/23/2021 The patient was seen and examined in telemetry unit He has been much better today and seem to be more rational He was advised that he needs to be in the hospital for a few days Remains extremely weak and lethargic 03/24/2021 The patient was seen and examined in telemetry unit He has been much better today No more confusion but remains extremely weak and tired He has had PT evaluation and recommended rehab He has been moving bowel normally 03/25/2021 The patient was seen and examined in telemetry unit He remains weak and lethargic Denies any other symptoms He is willing to go to rehab 03/26/2021 The patient was seen and examined in telemetry unit He remains weak and lethargic and has minimal tremors with outstretched hands Denies any other symptoms abdominal pain, nausea and or vomiting Review of Systems Review of Systems: All systems reviewed and are unremarkable except as noted below Constitutional: + malaise Gastrointestinal: + bloating; no abdominal pain, no nausea and no vomiting Physical Exam Physical Exam: Lying in bed comfortably Constitutional: well developed, well nourished, + ill appearing and + obese ENMT: external ear and nose normal, oropharynx normal Neck: trachea midline, no thyromegaly Respiratory: + respiratory distress (Minimal distress at rest) Auscultation: + diminished lung sounds; no crackles (Minimal bibasilar crackles) Cardiovascular: Rate/Rhythm: regular rate and regular rhythm; not tachycardic Heart Sounds: normal S1 and normal S2; no murmur Extremities: + edema (1+ edema bilaterally) Gastrointestinal (Abdomen): Inspection/Auscultation: + abdomen distended and normal bowel sounds Percussion/Palpation: + abdomen tender (Mildly tender all over) and abdomen soft; no guarding Musculoskeletal: No acute arthritis in any joint Skin: Yellow discoloration of the skin and sclera Neurologic: Alert, awake and oriented x3. Generally weak, mild tremors involving the outstretched hands Results & Data Results & Data ([facility]) Vital Signs (Past 12 Hours) Vital Signs Temp Pulse Pulse Resp BP BP Pulse Ox 03/26/21 12:12 36.6 C 74 20 141/63 H 96 03/26/21 10:40 85 03/26/21 07:00 37.0 C 89 16 131/66 99 03/26/21 03:47 36.6 C 75 18 100/65 93 03/26/21 00:32 77 Laboratory Results [facility] 03/26/21 07:59 Sodium 137 Potassium 3.7 Chloride 104 Carbon Dioxide 24 BUN 10 Creatinine Glucose 98 Calcium 8.7 Liver Function 03/26/21 Range/Units 07:59 Total Bilirubin 23.6 H (0.2-1) mg/dl AST 137 H (15-37) U/L ALT 60 (12-78) U/L Alkaline Phosphatase 273 H (45-117) U/L Albumin 2.2 L (3.4-5.0) gm/dl Medications Administered Current Inpatient Medications Acetaminophen (Acetaminophen 325 Mg Tab) 325 mg PO Q6H PRN PRN Reason: Mild Pain Stop: 04/17/21 05:48 Amlodipine Besylate (Amlodipine Besylate 5 Mg Tab) 2.5 mg PO DAILY ELIZABETH Stop: 04/17/21 08:59 Last Admin: 03/26/21 08:55 Dose: 2.5 mg Documented by: Lipase/Protease/Amylase (Pancreaze (Lipase 10,500u) Cap) 1 cap PO TIDM ELIZABETH Stop: 04/23/21 11:59 Last Admin: 03/26/21 08:56 Dose: 1 cap Documented by: Bupropion HCl (Bupropion Sr 150 Mg Tabcr) 150 mg PO BID ELIZABETH Stop: 04/17/21 08:59 Last Admin: 03/26/21 08:55 Dose: 150 mg Documented by: Buspirone HCl (Buspirone 15 Mg Tab) 30 mg PO TID ELIZABETH Stop: 04/17/21 08:59 Last Admin: 03/26/21 08:54 Dose: 30 mg Documented by: Cetirizine HCl (Cetirizine Hcl 10 Mg Tablet) 10 mg PO DAILY ELIZABETH Stop: 04/17/21 08:59 Last Admin: 03/26/21 08:54 Dose: 10 mg Documented by: Clonidine HCl (Clonidine Hcl 0.1 Mg Tab) 0.1 mg PO BID PRN PRN Reason: for SBP above 170 Stop: 04/18/21 10:15 Cyanocobalamin (Cyanocobalamin (Vitamin B-12) 100 Mcg Tablet) 100 mcg PO DAILY ELIZABETH Stop: 04/17/21 08:59 Last Admin: 03/26/21 08:54 Dose: 100 mcg Documented by: Fluticasone Propionate (Fluticasone Propionate Na Spr 16 Gm Btl) 2 sprays NA DAILY ELIZABETH Stop: 04/17/21 08:59 Last Admin: 03/26/21 08:57 Dose: 2 sprays Documented by: Fluticasone/Vilanterol (Fluticasone/Vilanterol 200/25mcg 14 Puffs/Inhaler) 1 puffs INH DAILY ELIZABETH Stop: 04/17/21 08:59 Last Admin: 03/26/21 08:57 Dose: 1 puffs Documented by: Folic Acid (Folic Acid 1 Mg Tab) 1 mg PO DAILY ELIZABETH Stop: 04/17/21 08:59 Last Admin: 03/26/21 08:54 Dose: 1 mg Documented by: Gabapentin (Gabapentin 400 Mg Cap) 400 mg PO TID ELIZABETH Stop: 04/17/21 08:59 Last Admin: 03/26/21 08:53 Dose: 400 mg Documented by: Promethazine HCl 12.5 mg/ (Sodium Chloride) 50.5 mls @ 202 mls/hr IV Q6H PRN PRN Reason: Nausea And Vomiting Stop: 04/17/21 05:48 Lorazepam (Lorazepam 0.5 Mg Tab) 0.25 mg PO Q8H PRN PRN Reason: Anxiety Stop: 04/23/21 10:16 Last Admin: 03/25/21 21:29 Dose: 0.25 mg Documented by: Mirtazapine (Mirtazapine Tab 15 Mg Tab) 15 mg PO HS ELIZABETH Stop: 04/17/21 20:59 Last Admin: 03/25/21 20:21 Dose: 15 mg Documented by: Montelukast Sodium (Montelukast Sodium 10 Mg Tablet) 10 mg PO HS ELIZABETH Stop: 04/17/21 20:59 Last Admin: 03/25/21 20:21 Dose: 10 mg Documented by: Multivitamins (Multivitamin Tab) 1 tab PO DAILY ELIZABETH Stop: 04/17/21 08:59 Last Admin: 03/26/21 08:53 Dose: 1 tab Documented by: Oxycodone HCl (Oxycodone Hcl Ir 5 Mg Tab (Immediate Release)) 5 mg PO Q4H PRN PRN Reason: Pain Stop: 04/01/21 05:48 Pantoprazole Sodium (Pantoprazole 40 Mg Tab) 40 mg PO DAILY ELIZABETH Stop: 04/17/21 08:59 Last Admin: 03/26/21 08:53 Dose: 40 mg Documented by: Prednisone (Prednisone 20 Mg Tab) 40 mg PO DAILY ELIZABETH Stop: 04/21/21 08:59 Last Admin: 03/26/21 08:52 Dose: 40 mg Documented by: Propranolol HCl (Propranolol Hcl 10 Mg Tab) 10 mg PO DAILY ELIZABETH Stop: 04/18/21 08:59 Last Admin: 03/26/21 08:52 Dose: 10 mg Documented by: Thiamine HCl (Thiamine Hcl 100 Mg Tab) 100 mg PO DAILY ELIZABETH Stop: 04/17/21 08:59 Last Admin: 03/26/21 08:52 Dose: 100 mg Documented by: (1) Alcoholic hepatitis Ascites presence: with ascites Qualified Code(s): K70.11 - Alcoholic hepatitis with ascites
[2021-03-26] MEDS: MIRTAZAPINE TAB 15 MG TAB PO SCH (20:41)
[2021-03-26] MEDS: MONTELUKAST SODIUM 10 MG TABLET PO SCH (20:42)
[2021-03-27 05:52] LABS: Mean Corpuscular Hgb Conc 33.5 g/dL (32-36); Mean Platelet Volume 10.5 fL (7.4-10.4); Platelet Count 251 K/uL (130-400)
[2021-03-27 06:22] LABS: Hematocrit (blood only) 38.2 % (42-52); Hemoglobin 12.8 g/dL (14.0-18.0); Mean Corpuscular Volume 104.4 fL (80-100); RDW Coefficient of Variation 18.5 % (11.5-14.5); RDW Standard Deviation 70.7 fL (36.4-46.3); Red Blood Count 3.66 M/uL (4.7-6.1); White Blood Count 18.89 K/uL (4.8-10.8)
[2021-03-27 06:26] LABS: ALC (manual) 1.15 K/uL (1.2-3.4); ANC (manual) 15.57 K/uL (1.4-6.5); Eosinophils # (manual) 0.34 K/uL (0-0.5); Eosinophils % (manual) 1.8 %; Lymphocytes # (manual) 1.15 K/uL (1.2-3.4); Lymphocytes % (manual) 6.1 %; Macrocytosis Present; Monocytes # (manual) 1.66 K/uL (0.11-0.59); Monocytes % (manual) 8.8 %; Myelocytes # (manual) 0.17 K/uL (0-0); Myelocytes % (manual) 0.9 %; Neutrophils # (manual) 15.57 K/uL (1.4-6.5); Neutrophils % (manual) 82.4 %; Polychromasia 1+; Target Cells 1+
[2021-03-27 06:38] LABS: Blood Urea Nitrogen 11 mg/dl (7-18); Calcium 8.7 mg/dl (8.5-10.1); Carbon Dioxide 24 mmol/L (21-32); Chloride 105 mmol/L (98-107); Glucose 109 mg/dl (70-99); Magnesium 1.8 mg/dl (1.8-2.4); Potassium 3.5 mmol/L (3.5-5.1); Sodium 133 mmol/L (136-145)
[2021-03-27] MEDS: buPROPion SR 150 MG TABCR PO SCH ×2 (08:25→21:01)
[2021-03-27] MEDS: busPIRone 15 MG TAB PO SCH ×3 (08:26→21:01)
[2021-03-27] MEDS: GABAPENTIN 400 MG CAP PO SCH ×3 (08:26→21:01)
[2021-03-27] MEDS: predniSONE 20 MG TAB PO SCH (08:27)
[2021-03-27] MEDS: THIAMINE HCL 100 MG TAB PO SCH (08:27)
[2021-03-27] MEDS: FOLIC ACID 1 MG TAB PO SCH (08:27)
[2021-03-27] MEDS: CETIRIZINE HCL 10 MG TABLET PO SCH (08:28)
[2021-03-27] MEDS: FLUTICASONE/VILANTEROL 200/25MCG 14 PUFFS/INHALER INH SCH (08:28)
[2021-03-27] MEDS: FLUTICASONE PROPIONATE NA SPR 16 GM BTL SCH (08:28)
[2021-03-27] MEDS: CYANOCOBALAMIN (VITAMIN B-12) 100 MCG TABLET PO SCH (08:29)
[2021-03-27] MEDS: MULTIVITAMIN TAB PO SCH (08:29)
[2021-03-27] MEDS: PANTOprazole 40 MG TAB PO SCH (08:29)
[2021-03-27] MEDS: PROPRANOLOL HCL 10 MG TAB PO SCH (08:29)
[2021-03-27] MEDS: amLODIPine BESYLATE 5 MG TAB PO SCH (08:30)
[2021-03-27] MEDS: PANCREAZE (LIPASE 10,500U) CAP PO SCH ×3 (08:31→16:54)
--- NOTE | 2021-03-27 14:53 | Hospitalist Progress Note ---
Date of Service March 27, 2021 Assessment & Plan (1) Alcoholic hepatitis: Plan: Presented with very high LFTs with obstructive feature-with total bilirubin of 26, AST 188, ALT 46 and alkaline phos 303 as of 03/22/2021 Present on admission with Alcohol intoxication CT abd/pelvis showed enlarged fatty liver with mild cirrhosis. Small amount of ascites. Elevated AST on admission 248 then dropped to 199 today Started on intravenous Rocephin 2 gm IV daily Gastro on board -appreciate input and recommendation Gastro compensation advisor recommended to transfer to a tertiary care center to evaluate for for possible liver failure[place] [facility] [place] keeping patient [place] [facility] and treatment for possible acetaminophen toxicity. Completed the acetylcysteine regimen Case discussed with Dr. Stark that recommended steroid therapy after r/o SBP S/P paracentesis done where 950ml ascites fluid removed, will follow ascites culture and gram stain Continue IV albumin for now-discontinue lateral Ascites Gram stain and culture were negative, no evidence of SBP Intravenous ceftriaxone was discontinued Started on prednisone 40 mg daily for for 28 days as per GI Clinically much better today but initially wanted to leave the hospital After a long conversation with the patient he agreed to stay in the hospital for couple of days He will get PT and OT evaluation in case he wants to be discharged in a day or 2 He was strongly advised to go for inpatient rehab-this was extensively discussed with the significant other Has had PT evaluation and recommended rehab Discussed with the patient for the rehab placement-he seemed to be agreeable Appreciate GI reevaluation and will need to have outpatient GI follow-up for severe alcoholic hepatitis We will continue steroid on discharge as per GI recommendation Awaiting placement-medically stable to be discharged; the patient wants to go to rehab in [place] with plan to go home in [place] when the rehab is over and he is better. He was strongly advised to have follow-up appointment with manager clinical for his alcoholic hepatitis and pancreatic mass. poolroom/poolhall manager is working on for possible placement-inpatient alcohol rehab (2) Ascites: Plan: S/P paracentesis done where 950ml ascites fluid removed, will follow ascites culture and gram stain Continue IV albumin for now Ascites Gram stain and culture were negative, no evidence of SBP Intravenous ceftriaxone was discontinued Alcohol intoxication History of alcohol abuse Alcohol level 348 on admission Previous history of alcohol withdrawal and DT in the past Continue Ativan and gabapentin alcohol withdrawn protocol Counseling on alcohol cessation Continue thiamine and Folic acid Consider inpatient alcohol rehab Continue monitor closely for sign of alcohol withdraw and DT No signs and/or symptoms of withdrawal except minimal tremors involving the outstretched hands Will give oral Ativan as needed for anxiety Ativan doses have been decreased to 0.25 mg every 8 hourly. Does have minimal tremor involving the outstretched hands He will not need any Ativan on discharge Pancreatic Mass CT showed 3.7 cm heterogeneous pancreatic tail lesion. Gastro recommended outpatient EUS in 4 weeks to evaluate the panc lesion however this is likely a WON/necroma related to prior pancreatitis. Follow-up pancreatic MRI with contrast recommended for further evaluation. Will need to have GI follow-up as an outpatient Elevated lactic acid Possible related to alcohol intoxication, but need to r/o infection/SBP Received IVF lactic acid and WBC normalized Continue Rocephin IV for now Electrolytes abnormalities Mostly related to alcohol abuse and poor oral intake K 2.8, Phos 1.8 Electrolytes replaced Continue monitor electrolytes closely Elevated INR Mostly related to acute alcohol hepatitis/ascites INR 1.5 today Received Vit K on admission Continue monitor INR and if above 2, will give vit K No sign of bleeding and will recheck INR Will give more vitamin K orally DVT px SCD due to elevate INR and history of intermittent epistaxis CODE STATUS FULL CODE Patient requesting for referral to be updated of plan of care. Ms. Wendy Matute, contact #[phone].-Has been communicating with her regularly Admission and Anticipated Discharge Date Admission Date: March 18, 2021 Subjective 03/22/2021 The patient was seen and examined in telemetry unit He remains pleasantly confused and has been requiring one-to-one sitter He is generally weak but does not have any acute distress 03/23/2021 The patient was seen and examined in telemetry unit He has been much better today and seem to be more rational He was advised that he needs to be in the hospital for a few days Remains extremely weak and lethargic 03/24/2021 The patient was seen and examined in telemetry unit He has been much better today No more confusion but remains extremely weak and tired He has had PT evaluation and recommended rehab He has been moving bowel normally 03/25/2021 The patient was seen and examined in telemetry unit He remains weak and lethargic Denies any other symptoms He is willing to go to rehab 03/26/2021 The patient was seen and examined in telemetry unit He remains weak and lethargic and has minimal tremors with outstretched hands Denies any other symptoms abdominal pain, nausea and or vomiting 03/27/2021 The patient was seen and examined in telemetry unit He has been feeling much better and denies any significant symptoms except weakness He wants to go to alcohol rehab facility and does not want to go home Discussed with the significant other who mentioned that it will depend on him to decide on that Review of Systems Review of Systems: All systems reviewed and are unremarkable except as noted below Constitutional: + malaise Gastrointestinal: + bloating; no abdominal pain, no nausea and no vomiting Physical Exam Physical Exam: Lying in bed comfortably Constitutional: well developed, well nourished, + ill appearing and + obese ENMT: external ear and nose normal, oropharynx normal Neck: trachea midline, no thyromegaly Respiratory: + respiratory distress (Minimal distress at rest) Auscultation: + diminished lung sounds; no crackles (Minimal bibasilar crackles) Cardiovascular: Rate/Rhythm: regular rate and regular rhythm; not tachycardic Heart Sounds: normal S1 and normal S2; no murmur Extremities: + edema (1+ edema bilaterally) Gastrointestinal (Abdomen): Inspection/Auscultation: + abdomen distended and normal bowel sounds Percussion/Palpation: + abdomen tender (Mildly tender all over) and abdomen soft; no guarding Musculoskeletal: No acute arthritis in any joint Neurologic: Alert, awake and oriented x3. Minimal tremors in outstretched hands. Generally weak but no focal neuro deficit Results & Data Results & Data ([facility]) Vital Signs (Past 12 Hours) Vital Signs Temp Pulse Resp BP Pulse Ox 03/27/21 12:00 36.8 C 98 H 18 124/72 03/27/21 08:00 36.9 C 96 H 20 124/63 99 03/27/21 04:08 36.8 C 83 18 119/81 95 Laboratory Results Short CBC 03/27/21 Range/Units 05:41 WBC 18.89 H (4.8-10.8) K/uL Hgb 12.8 L (14.0-18.0) g/dL Hct 38.2 L (42-52) % Plt Count 251 (130-400) K/uL BMP 03/27/21 05:41 Sodium 133 L Potassium 3.5 Chloride 105 Carbon Dioxide 24 BUN 11 Creatinine Glucose 109 H Calcium 8.7 Medications Administered Current Inpatient Medications Acetaminophen (Acetaminophen 325 Mg Tab) 325 mg PO Q6H PRN PRN Reason: Mild Pain Stop: 04/17/21 05:48 Amlodipine Besylate (Amlodipine Besylate 5 Mg Tab) 2.5 mg PO DAILY ELIZABETH Stop: 04/17/21 08:59 Last Admin: 03/27/21 08:30 Dose: 2.5 mg Documented by: Lipase/Protease/Amylase (Pancreaze (Lipase 10,500u) Cap) 1 cap PO TIDM ELIZABETH Stop: 04/23/21 11:59 Last Admin: 03/27/21 12:00 Dose: 1 cap Documented by: Bupropion HCl (Bupropion Sr 150 Mg Tabcr) 150 mg PO BID ELIZABETH Stop: 04/17/21 08:59 Last Admin: 03/27/21 08:25 Dose: 150 mg Documented by: Buspirone HCl (Buspirone 15 Mg Tab) 30 mg PO TID ELIZABETH Stop: 04/17/21 08:59 Last Admin: 03/27/21 08:26 Dose: 30 mg Documented by: Cetirizine HCl (Cetirizine Hcl 10 Mg Tablet) 10 mg PO DAILY ELIZABETH Stop: 04/17/21 08:59 Last Admin: 03/27/21 08:28 Dose: 10 mg Documented by: Clonidine HCl (Clonidine Hcl 0.1 Mg Tab) 0.1 mg PO BID PRN PRN Reason: for SBP above 170 Stop: 04/18/21 10:15 Cyanocobalamin (Cyanocobalamin (Vitamin B-12) 100 Mcg Tablet) 100 mcg PO DAILY ELIZABETH Stop: 04/17/21 08:59 Last Admin: 03/27/21 08:29 Dose: 100 mcg Documented by: Fluticasone Propionate (Fluticasone Propionate Na Spr 16 Gm Btl) 2 sprays NA DAILY ELIZABETH Stop: 04/17/21 08:59 Last Admin: 03/27/21 08:28 Dose: 2 sprays Documented by: Fluticasone/Vilanterol (Fluticasone/Vilanterol 200/25mcg 14 Puffs/Inhaler) 1 puffs INH DAILY ELIZABETH Stop: 04/17/21 08:59 Last Admin: 03/27/21 08:28 Dose: 1 puffs Documented by: Folic Acid (Folic Acid 1 Mg Tab) 1 mg PO DAILY ELIZABETH Stop: 04/17/21 08:59 Last Admin: 03/27/21 08:27 Dose: 1 mg Documented by: Gabapentin (Gabapentin 400 Mg Cap) 400 mg PO TID ELIZABETH Stop: 04/17/21 08:59 Last Admin: 03/27/21 08:26 Dose: 400 mg Documented by: Promethazine HCl 12.5 mg/ (Sodium Chloride) 50.5 mls @ 202 mls/hr IV Q6H PRN PRN Reason: Nausea And Vomiting Stop: 04/17/21 05:48 Lorazepam (Lorazepam 0.5 Mg Tab) 0.25 mg PO Q8H PRN PRN Reason: Anxiety Stop: 04/23/21 10:16 Last Admin: 03/25/21 21:29 Dose: 0.25 mg Documented by: Mirtazapine (Mirtazapine Tab 15 Mg Tab) 15 mg PO HS ELIZABETH Stop: 04/17/21 20:59 Last Admin: 03/26/21 20:41 Dose: 15 mg Documented by: Montelukast Sodium (Montelukast Sodium 10 Mg Tablet) 10 mg PO HS ELIZABETH Stop: 04/17/21 20:59 Last Admin: 03/26/21 20:42 Dose: 10 mg Documented by: Multivitamins (Multivitamin Tab) 1 tab PO DAILY ELIZABETH Stop: 04/17/21 08:59 Last Admin: 03/27/21 08:29 Dose: 1 tab Documented by: Oxycodone HCl (Oxycodone Hcl Ir 5 Mg Tab (Immediate Release)) 5 mg PO Q4H PRN PRN Reason: Pain Stop: 04/01/21 05:48 Pantoprazole Sodium (Pantoprazole 40 Mg Tab) 40 mg PO DAILY ELIZABETH Stop: 04/17/21 08:59 Last Admin: 03/27/21 08:29 Dose: 40 mg Documented by: Prednisone (Prednisone 20 Mg Tab) 40 mg PO DAILY ELIZABETH Stop: 04/21/21 08:59 Last Admin: 03/27/21 08:27 Dose: 40 mg Documented by: Propranolol HCl (Propranolol Hcl 10 Mg Tab) 10 mg PO DAILY ELIZABETH Stop: 04/18/21 08:59 Last Admin: 03/27/21 08:29 Dose: 10 mg Documented by: Thiamine HCl (Thiamine Hcl 100 Mg Tab) 100 mg PO DAILY ELIZABETH Stop: 04/17/21 08:59 Last Admin: 03/27/21 08:27 Dose: 100 mg Documented by: (1) Alcoholic hepatitis Ascites presence: with ascites Qualified Code(s): K70.11 - Alcoholic hepatitis with ascites
[2021-03-27] MEDS ORDERED: PHYTONADIONE 5 MG TAB PO STA (15:02)
[2021-03-27] MEDS ORDERED: Nursing to Pharmacy Communication SCH (15:30)
[2021-03-27] MEDS: MONTELUKAST SODIUM 10 MG TABLET PO SCH (21:02)
[2021-03-27] MEDS: MIRTAZAPINE TAB 15 MG TAB PO SCH (21:03)
[2021-03-28 06:36] LABS: Alanine Aminotransferase 79 U/L (12-78); Albumin Level 2.2 gm/dl (3.4-5.0); Alkaline Phosphatase 306 U/L (45-117); Aspartate Aminotransferase 153 U/L (15-37); Bilirubin,Total 22.6 mg/dl (0.2-1); Blood Urea Nitrogen 10 mg/dl (7-18); Calcium 8.9 mg/dl (8.5-10.1); Carbon Dioxide 23 mmol/L (21-32); Chloride 105 mmol/L (98-107); Glucose 95 mg/dl (70-99); Phosphorus 3.2 mg/dl (2.5-4.9); Potassium 3.8 mmol/L (3.5-5.1); Sodium 135 mmol/L (136-145)
[2021-03-28] MEDS: PANCREAZE (LIPASE 10,500U) CAP PO SCH ×3 (08:15→17:31)
[2021-03-28] MEDS: amLODIPine BESYLATE 5 MG TAB PO SCH (08:32)
[2021-03-28] MEDS: busPIRone 15 MG TAB PO SCH ×3 (08:33→20:22)
[2021-03-28] MEDS: buPROPion SR 150 MG TABCR PO SCH ×2 (08:33→20:22)
[2021-03-28] MEDS: CETIRIZINE HCL 10 MG TABLET PO SCH (08:34)
[2021-03-28] MEDS: CYANOCOBALAMIN (VITAMIN B-12) 100 MCG TABLET PO SCH (08:34)
[2021-03-28] MEDS: FLUTICASONE PROPIONATE NA SPR 16 GM BTL SCH (08:34)
[2021-03-28] MEDS: FLUTICASONE/VILANTEROL 200/25MCG 14 PUFFS/INHALER INH SCH (08:35)
[2021-03-28] MEDS: FOLIC ACID 1 MG TAB PO SCH (08:35)
[2021-03-28] MEDS: THIAMINE HCL 100 MG TAB PO SCH (08:36)
[2021-03-28] MEDS: PROPRANOLOL HCL 10 MG TAB PO SCH (08:36)
[2021-03-28] MEDS: MULTIVITAMIN TAB PO SCH (08:36)
[2021-03-28] MEDS: GABAPENTIN 400 MG CAP PO SCH ×3 (08:36→20:22)
[2021-03-28] MEDS: predniSONE 20 MG TAB PO SCH (08:36)
[2021-03-28] MEDS: PANTOprazole 40 MG TAB PO SCH (09:40)
[2021-03-28 10:27] LABS: Hematocrit (blood only) 41.7 % (42-52); Hemoglobin 13.8 g/dL (14.0-18.0); Mean Corpuscular Hemoglobin 35.4 pg (25-34); Mean Corpuscular Hgb Conc 33.1 g/dL (32-36); Mean Corpuscular Volume 106.9 fL (80-100); Nucleated RBC # (auto) 0.02 K/uL (0-0); Nucleated RBC % (auto) 0.1 %; Platelet Count 286 K/uL (130-400); RDW Coefficient of Variation 18.5 % (11.5-14.5); RDW Standard Deviation 72.9 fL (36.4-46.3); White Blood Count 18.61 K/uL (4.8-10.8)
[2021-03-28] MEDS: MONTELUKAST SODIUM 10 MG TABLET PO SCH (20:22)
[2021-03-28] MEDS: MIRTAZAPINE TAB 15 MG TAB PO SCH (20:22)
--- NOTE | 2021-03-28 21:22 | Hospitalist Progress Note ---
Date of Service March 28, 2021 Assessment & Plan (1) Alcoholic hepatitis: Plan: #. Alcoholic hepatitis: Presented with very high LFTs with obstructive feature-with total bilirubin of 26, AST 188, ALT 46 and alkaline phos 303 as of 03/22/2021; and alcohol int oxication Admitting CT abd/pelvis showed enlarged fatty liver with mild cirrhosis. Small amount of ascites. Gastro it application administrator recommended to transfer to a tertiary care center to evaluate for for possible liver failure. [facility] [place] keeping patient at [facility] and treatment for possible acetaminophen toxicity. Completed the acetylcysteine regimen Case discussed with Dr. Stark that recommended steroid therapy after r/o SBP. Will need GI follow up on discharge. S/P paracentesis done where 950ml ascites fluid removed - neg for SBP, IV ATB DC'd, on PO prednisone x 28 days. He was strongly advised to go for inpatient rehab-this was extensively discussed with the significant other Has had PT evaluation and recommended rehab We will continue steroid on discharge as per GI recommendation Awaiting placement-medically stable to be discharged; the patient wants to go to rehab in [place] with plan to go home in [place] when the rehab is over and he is better. He was strongly advised to have follow-up appointment with paper bag press operator for his alcoholic hepatitis and pancreatic mass. fire investigation manager is working on for possible placement-inpatient alcohol rehab #. Ascites: S/P paracentesis done where 950ml ascites fluid removed, will follow ascites culture and gram stain REceived IV albumin Ascites Gram stain and culture were negative, no evidence of SBP Intravenous ceftriaxone was discontinued #. Alcohol intoxication History of alcohol abuse Alcohol level 348 on admission Previous history of alcohol withdrawal and DT in the past Continue Ativan and gabapentin alcohol withdrawn protocol Counseling on alcohol cessation Continue thiamine and Folic acid Consider inpatient alcohol rehab Continue monitor closely for sign of alcohol withdraw and DT No signs and/or symptoms of withdrawal except minimal tremors involving the outstretched hands Ativan as needed for anxiety, will not need any Ativan upon discharge. #. Pancreatic Mass CT showed 3.7 cm heterogeneous pancreatic tail lesion. Gastro recommended outpatient EUS in 4 weeks to evaluate the panc lesion however this is likely a WON/necroma related to prior pancreatitis. Follow-up pancreatic MRI with contrast recommended for further evaluation. Will need to have GI follow-up as an outpatient #. Elevated lactic acid Resolved #. Electrolytes abnormalities Mostly related to alcohol abuse and poor oral intake Monitor and replace as appropriate #. Elevated INR Mostly related to acute alcohol hepatitis/ascites Received Vit K on admission Continue monitor INR and if above 2, will give vit K No sign of bleeding and will recheck INR DVT px SCD due to elevate INR and history of intermittent epistaxis CODE STATUS FULL CODE Patient requesting for referral to be updated of plan of care. Ms. Wendy Matute, contact #[phone].-Has been communicating with her regularly Admission and Anticipated Discharge Date Admission Date: March 18, 2021 Subjective Patient was sitting up in bed, on room air, NAD, no issues overnight. Patient denies any headache/dizziness/chills/fever/sore throat/other review of symptoms. Patient is eating and moving bowels okay. Physical Exam Physical Exam: GENERAL: Alert and oriented x3. NAD, on RA. HEENT: No pallor, no icterus. Pupils equal, round and reactive to light. Oral mucosa moist. NECK: No JVD, no neck masses. HEART: S1 and S2 heard. Regular rate and rhythm. No murmur, no gallop. RESPIRATORY SYSTEM: Normal AP diameter. No accessory muscle use. No wheezing, no crackles. ABDOMEN: Soft, bowel sounds present, nontender, no distention. CENTRAL NERVOUS SYSTEM: Alert and oriented x3. No facial droop. Speech is clear. Obeys simple commands. Moves extremities. EXTREMITIES: No edema, no erythema seen. Results & Data Results & Data ([facility]) Vital Signs (Past 12 Hours) Vital Signs Temp Pulse Pulse Resp BP BP Pulse Ox 03/28/21 20:05 36.7 C 80 16 119/81 94 03/28/21 19:05 36.6 C 80 16 115/78 92 03/28/21 15:07 36.6 C 84 16 119/83 94 03/28/21 10:48 36.5 C 88 18 113/79 95 03/28/21 10:28 79 (1) Alcoholic hepatitis Ascites presence: with ascites Qualified Code(s): K70.11 - Alcoholic hepatitis with ascites
[2021-03-29 06:21] LABS: Mean Corpuscular Hemoglobin 35.6 pg (25-34); Mean Corpuscular Hgb Conc 33.3 g/dL (32-36); Mean Corpuscular Volume 106.9 fL (80-100); Mean Platelet Volume 11.7 fL (7.4-10.4); Platelet Count 300 K/uL (130-400); RDW Coefficient of Variation 18.1 % (11.5-14.5); RDW Standard Deviation 71.6 fL (36.4-46.3); Red Blood Count 3.93 M/uL (4.7-6.1); White Blood Count 22.12 K/uL (4.8-10.8)
[2021-03-29 06:28] LABS: INR 1.4 (0.9-1.1); Prothrombin Time 13.7 Seconds (9.0-12.0)
[2021-03-29 07:14] LABS: Alanine Aminotransferase 90 U/L (12-78); Albumin Level 2.2 gm/dl (3.4-5.0); Alkaline Phosphatase 312 U/L (45-117); Aspartate Aminotransferase 166 U/L (15-37); Blood Urea Nitrogen 10 mg/dl (7-18); Carbon Dioxide 22 mmol/L (21-32); Chloride 103 mmol/L (98-107); Glucose 81 mg/dl (70-99); Potassium 3.6 mmol/L (3.5-5.1); Sodium 130 mmol/L (136-145)
[2021-03-29] MEDS ORDERED: POTASSIUM CHLORIDE CRTAB 20 MEQ TABCR PO STA (07:34)
[2021-03-29] MEDS: PANCREAZE (LIPASE 10,500U) CAP PO SCH ×3 (08:10→16:56)
[2021-03-29] MEDS: predniSONE 20 MG TAB PO SCH (08:10)
[2021-03-29] MEDS: MULTIVITAMIN TAB PO SCH (08:10)
[2021-03-29] MEDS: THIAMINE HCL 100 MG TAB PO SCH (08:10)
[2021-03-29] MEDS: buPROPion SR 150 MG TABCR PO SCH ×2 (08:10→20:45)
[2021-03-29] MEDS: CYANOCOBALAMIN (VITAMIN B-12) 100 MCG TABLET PO SCH (08:10)
[2021-03-29] MEDS: CETIRIZINE HCL 10 MG TABLET PO SCH (08:10)
[2021-03-29] MEDS: PANTOprazole 40 MG TAB PO SCH (08:10)
[2021-03-29] MEDS: GABAPENTIN 400 MG CAP PO SCH ×3 (08:11→20:45)
[2021-03-29] MEDS: PROPRANOLOL HCL 10 MG TAB PO SCH ×2 (08:11→20:44)
[2021-03-29] MEDS: busPIRone 15 MG TAB PO SCH ×3 (08:11→20:30)
[2021-03-29] MEDS: FOLIC ACID 1 MG TAB PO SCH (08:11)
[2021-03-29] MEDS: amLODIPine BESYLATE 5 MG TAB PO SCH (08:12)
[2021-03-29] MEDS: FLUTICASONE/VILANTEROL 200/25MCG 14 PUFFS/INHALER INH SCH (08:12)
[2021-03-29] MEDS: FLUTICASONE PROPIONATE NA SPR 16 GM BTL SCH (08:12)
--- NOTE | 2021-03-29 17:34 | Hospitalist Progress Note ---
Date of Service March 29, 2021 Assessment & Plan (1) Alcoholic hepatitis: Plan: #. Alcoholic hepatitis: Presented with very high LFTs with obstructive feature-with total bilirubin of 26, AST 188, ALT 46 and alkaline phos 303 as of 03/22/2021; and alcohol int oxication Admitting CT abd/pelvis showed enlarged fatty liver with mild cirrhosis. Small amount of ascites. Gastro product inspection coordinator recommended to transfer to a tertiary care center to evaluate for for possible liver failure. [facility] GI specialist recommended keeping patient at [facility] and treatment for possible acetaminophen toxicity. Completed the acetylcysteine regimen Case discussed with Dr. Stark that recommended steroid therapy after r/o SBP. Will need GI follow up on discharge. S/P paracentesis done where 950ml ascites fluid removed - neg for SBP, IV ATB DC'd, on PO prednisone x 28 days. He was strongly advised to go for inpatient rehab-this was extensively discussed with the significant other Has had PT evaluation and recommended rehab We will continue steroid on discharge as per GI recommendation Awaiting placement-medically stable to be discharged; the patient wants to go to rehab in [place] with plan to go home in [place] when the rehab is over and he is better. He was strongly advised to have follow-up appointment with sap basis architect fo r his alcoholic hepatitis and pancreatic mass. manager stylist is working on for possible placement-inpatient alcohol rehab #. Ascites: S/P paracentesis done where 950ml ascites fluid removed, will follow ascites culture and gram stain REceived IV albumin Ascites Gram stain and culture were negative, no evidence of SBP Intravenous ceftriaxone was discontinued #. Alcohol intoxication History of alcohol abuse Alcohol level 348 on admission Previous history of alcohol withdrawal and DT in the past Continue Ativan and gabapentin alcohol withdrawn protocol Counseling on alcohol cessation Continue thiamine and Folic acid Consider inpatient alcohol rehab Continue monitor closely for sign of alcohol withdraw and DT No signs and/or symptoms of withdrawal except minimal tremors involving the outstretched hands Ativan as needed for anxiety, will not need any Ativan upon discharge. #. Pancreatic Mass CT showed 3.7 cm heterogeneous pancreatic tail lesion. Gastro recommended outpatient EUS in 4 weeks to evaluate the panc lesion however this is likely a WON/necroma related to prior pancreatitis. Follow-up pancreatic MRI with contrast recommended for further evaluation. Will need to have GI follow-up as an outpatient #. Elevated lactic acid Resolved #. Electrolytes abnormalities Mostly related to alcohol abuse and poor oral intake Monitor and replace as appropriate #. Elevated INR Mostly related to acute alcohol hepatitis/ascites Received Vit K on admission Continue monitor INR and if above 2, will give vit K No sign of bleeding and will recheck INR DVT px SCD due to elevate INR and history of intermittent epistaxis CODE STATUS FULL CODE Patient requesting for referral to be updated of plan of care. Ms. Wendy Matute, contact #[phone].-Has been communicating with her regularly Admission and Anticipated Discharge Date Admission Date: March 18, 2021 Subjective Patient was sitting up in bed, on room air, NAD, no issues overnight. Patient denies any headache/dizziness/chills/fever/sore throat/other review of symptoms. Patient is eating and moving bowels okay. Physical Exam Physical Exam: GENERAL: Alert and oriented x3. NAD, on RA. HEENT: No pallor, yellowing of skin and sclera since admission. Pupils equal, round and reactive to light. Oral mucosa moist. NECK: No JVD, no neck masses. HEART: S1 and S2 heard. Regular rate and rhythm. No murmur, no gallop. RESPIRATORY SYSTEM: Normal AP diameter. No accessory muscle use. No wheezing, no crackles. ABDOMEN: Soft, bowel sounds present, nontender, no distention. CENTRAL NERVOUS SYSTEM: Alert and oriented x3. No facial droop. Speech is clear. Obeys simple commands. Moves extremities. EXTREMITIES: No edema, no erythema seen. Right greater than left leg swelling, no erythema/warmth/tenderness. Bruits bilateral knee with dried scab. No signs of infection. Results & Data Results & Data ([facility]) Vital Signs (Past 12 Hours) Vital Signs Temp Pulse Pulse Resp BP Pulse Ox 03/29/21 16:55 36.9 C 85 17 117/84 95 03/29/21 12:01 36.5 C 85 17 123/85 94 03/29/21 09:47 81 03/29/21 09:10 36.6 C 83 18 115/62 96 (1) Alcoholic hepatitis Ascites presence: with ascites Qualified Code(s): K70.11 - Alcoholic hepatitis with ascites
[2021-03-29] MEDS: MIRTAZAPINE TAB 15 MG TAB PO SCH (20:45)
[2021-03-29] MEDS: MONTELUKAST SODIUM 10 MG TABLET PO SCH (20:45)
[2021-03-30 07:50] LABS: Hematocrit (blood only) 40.5 % (42-52); Hemoglobin 13.8 g/dL (14.0-18.0); Mean Corpuscular Hemoglobin 35.5 pg (25-34); Mean Corpuscular Hgb Conc 34.1 g/dL (32-36); Mean Corpuscular Volume 104.1 fL (80-100); Mean Platelet Volume 11.2 fL (7.4-10.4); Platelet Count 334 K/uL (130-400); RDW Coefficient of Variation 17.8 % (11.5-14.5); RDW Standard Deviation 67.7 fL (36.4-46.3); Red Blood Count 3.89 M/uL (4.7-6.1); White Blood Count 26.04 K/uL (4.8-10.8)
[2021-03-30] MEDS: predniSONE 20 MG TAB PO SCH (08:03)
[2021-03-30] MEDS: PANTOprazole 40 MG TAB PO SCH (08:03)
[2021-03-30] MEDS: busPIRone 15 MG TAB PO SCH ×3 (08:03→20:44)
[2021-03-30] MEDS: GABAPENTIN 400 MG CAP PO SCH ×3 (08:03→20:44)
[2021-03-30] MEDS: buPROPion SR 150 MG TABCR PO SCH ×2 (08:03→20:45)
[2021-03-30] MEDS: MULTIVITAMIN TAB PO SCH (08:03)
[2021-03-30] MEDS: FOLIC ACID 1 MG TAB PO SCH (08:03)
[2021-03-30] MEDS: THIAMINE HCL 100 MG TAB PO SCH (08:04)
[2021-03-30] MEDS: PROPRANOLOL HCL 10 MG TAB PO SCH ×2 (08:04→20:45)
[2021-03-30] MEDS: CYANOCOBALAMIN (VITAMIN B-12) 100 MCG TABLET PO SCH (08:04)
[2021-03-30] MEDS: PANCREAZE (LIPASE 10,500U) CAP PO SCH ×3 (08:04→16:52)
[2021-03-30] MEDS: amLODIPine BESYLATE 5 MG TAB PO SCH (08:04)
[2021-03-30] MEDS: CETIRIZINE HCL 10 MG TABLET PO SCH (08:04)
[2021-03-30] MEDS: FLUTICASONE/VILANTEROL 200/25MCG 14 PUFFS/INHALER INH SCH (08:05)
[2021-03-30] MEDS: FLUTICASONE PROPIONATE NA SPR 16 GM BTL SCH (08:05)
[2021-03-30 08:39] LABS: Alanine Aminotransferase 98 U/L (12-78); Albumin Level 2.1 gm/dl (3.4-5.0); Alkaline Phosphatase 309 U/L (45-117); Aspartate Aminotransferase 165 U/L (15-37); Bilirubin,Total 21.6 mg/dl (0.2-1); Blood Urea Nitrogen 11 mg/dl (7-18); Calcium 8.8 mg/dl (8.5-10.1); Carbon Dioxide 21 mmol/L (21-32); Chloride 103 mmol/L (98-107); Glucose 81 mg/dl (70-99); Potassium 3.7 mmol/L (3.5-5.1); Sodium 133 mmol/L (136-145)
--- NOTE | 2021-03-30 18:07 | Hospitalist Progress Note ---
Date of Service March 30, 2021 Assessment & Plan (1) Alcoholic hepatitis: Plan: #. Alcoholic hepatitis: Presented with very high LFTs with obstructive feature-with total bilirubin of 26, AST 188, ALT 46 and alkaline phos 303 as of 03/22/2021; and alcohol int oxication Admitting CT abd/pelvis showed enlarged fatty liver with mild cirrhosis. Small amount of ascites. Gastro steel construction worker recommended to transfer to a tertiary care center to evaluate for for possible liver failure. [facility] [place] recommended keeping patient at [facility] and treatment for possible acetaminophen toxicity. Completed the acetylcysteine regimen Case discussed with Dr. Stark that recommended steroid therapy after r/o SBP. Will need GI follow up on discharge. S/P paracentesis done where 950ml ascites fluid removed - neg for SBP, IV ATB DC'd, on PO prednisone x 28 days. He was strongly advised to go for inpatient rehab-this was extensively discussed with the significant other Has had PT evaluation and recommended rehab We will continue steroid on discharge as per GI recommendation Awaiting placement-medically stable to be discharged; the patient wants to go to rehab in [place] with plan to go home in [place] when the rehab is over and he is better. He was strongly advised to have follow-up appointment with tile installer fo r his alcoholic hepatitis and pancreatic mass. sales engineering manager is working on for possible placement-inpatient alcohol rehab #. Ascites: S/P paracentesis done where 950ml ascites fluid removed, will follow ascites culture and gram stain REceived IV albumin Ascites Gram stain and culture were negative, no evidence of SBP Intravenous ceftriaxone was discontinued #. Alcohol intoxication History of alcohol abuse Alcohol level 348 on admission Previous history of alcohol withdrawal and DT in the past Continue Ativan and gabapentin alcohol withdrawn protocol Counseling on alcohol cessation Continue thiamine and Folic acid Consider inpatient alcohol rehab Continue monitor closely for sign of alcohol withdraw and DT No signs and/or symptoms of withdrawal except minimal tremors involving the outstretched hands Ativan as needed for anxiety, will not need any Ativan upon discharge. #. Pancreatic Mass CT showed 3.7 cm heterogeneous pancreatic tail lesion. Gastro recommended outpatient EUS in 4 weeks to evaluate the panc lesion however this is likely a WON/necroma related to prior pancreatitis. Follow-up pancreatic MRI with contrast recommended for further evaluation. Will need to have GI follow-up as an outpatient #. Elevated lactic acid Resolved #. Electrolytes abnormalities Mostly related to alcohol abuse and poor oral intake Monitor and replace as appropriate #. Elevated INR Mostly related to acute alcohol hepatitis/ascites Received Vit K on admission Continue monitor INR and if above 2, will give vit K No sign of bleeding and will recheck INR #. Hypertension Fairly controlled, continue to monitor, continue home meds. We will DC amlodipine for concerns of leg swelling. DVT px SCD due to elevate INR and history of intermittent epistaxis CODE STATUS FULL CODE Patient requesting for referral to be updated of plan of care. Ms. Wendy Matute, contact #[phone].-Has been communicating with her regularly Admission and Anticipated Discharge Date Admission Date: March 18, 2021 Subjective Patient was sitting up in bed, on room air, NAD, no issues overnight. Patient denies any headache/dizziness/chills/fever/sore throat/other review of symptoms. Patient is eating and moving bowels okay. Physical Exam Physical Exam: GENERAL: Alert and oriented x3. NAD, on RA. HEENT: No pallor, yellowing of skin and sclera since admission. Pupils equal, round and reactive to light. Oral mucosa moist. NECK: No JVD, no neck masses. HEART: S1 and S2 heard. Regular rate and rhythm. No murmur, no gallop. RESPIRATORY SYSTEM: Normal AP diameter. No accessory muscle use. No wheezing, no crackles. ABDOMEN: Soft, bowel sounds present, nontender, no distention. CENTRAL NERVOUS SYSTEM: Alert and oriented x3. No facial droop. Speech is clear. Obeys simple commands. Moves extremities. EXTREMITIES: No edema, no erythema seen. Right greater than left leg swelling, no erythema/warmth/tenderness. Bruises bilateral knee with dried scab. No signs of infection. Results & Data Results & Data ([facility]) Vital Signs (Past 12 Hours) Vital Signs Temp Pulse Pulse Resp BP BP Pulse Ox 03/30/21 16:18 36.5 C 86 20 141/59 H 96 03/30/21 16:11 78 03/30/21 12:07 36.2 C L 77 20 121/81 95 03/30/21 07:47 36.8 C 78 19 115/79 96 03/30/21 07:41 77 (1) Alcoholic hepatitis Ascites presence: with ascites Qualified Code(s): K70.11 - Alcoholic hepatitis with ascites
[2021-03-30] MEDS: MONTELUKAST SODIUM 10 MG TABLET PO SCH (20:45)
[2021-03-30] MEDS: MIRTAZAPINE TAB 15 MG TAB PO SCH (20:46)
--- NOTE | 2021-03-30 23:59 | Ultrasound Report ---
ULTRASOUND RIGHT LOWER EXTREMITY VENOUS CLINICAL HISTORY: Right leg swelling. COMPARISON STUDY: No priors. TECHNIQUE: Real-time, grayscale, and color Doppler sonography of the deep veins of the right lower ex tremity was performed from the inguinal crease to the calf. Compression and augmentation were utilize d. FINDINGS: There is no sonographic evidence of deep venous thrombosis identified in the right lower ex tremity. The common femoral, superficial femoral, and popliteal veins are patent and normally rashida sible. The greater saphenous vein and the profunda femoris vein at the junction with the common femor al vein are clear. The visualized calf veins are patent. Soft tissue edema is noted in the calf. IMPRESSION: There is no sonographic evidence of deep venous thrombosis identified in the right lower extremity. ACT 112: Negative or not required by law. Electronically signed by: Surendra Wong M.D. 03/30/2021 11:57 PM
[2021-03-31 06:54] LABS: Hematocrit (blood only) 39.9 % (42-52); Hemoglobin 13.6 g/dL (14.0-18.0); Mean Corpuscular Hemoglobin 35.6 pg (25-34); Mean Corpuscular Hgb Conc 34.1 g/dL (32-36); Mean Corpuscular Volume 104.5 fL (80-100); Mean Platelet Volume 11.6 fL (7.4-10.4); Platelet Count 332 K/uL (130-400); RDW Coefficient of Variation 17.9 % (11.5-14.5); RDW Standard Deviation 67.8 fL (36.4-46.3); Red Blood Count 3.82 M/uL (4.7-6.1); White Blood Count 26.67 K/uL (4.8-10.8)
[2021-03-31 07:06] LABS: INR 1.4 (0.9-1.1); Prothrombin Time 13.6 Seconds (9.0-12.0)
[2021-03-31 07:31] LABS: Alanine Aminotransferase 103 U/L (12-78); Albumin Level 2.1 gm/dl (3.4-5.0); Alkaline Phosphatase 298 U/L (45-117); Aspartate Aminotransferase 162 U/L (15-37); Bilirubin,Total 20.7 mg/dl (0.2-1); Blood Urea Nitrogen 11 mg/dl (7-18); Calcium 9.2 mg/dl (8.5-10.1); Carbon Dioxide 25 mmol/L (21-32); Chloride 104 mmol/L (98-107); Glucose 91 mg/dl (70-99); Potassium 3.6 mmol/L (3.5-5.1); Sodium 132 mmol/L (136-145)
[2021-03-31] MEDS: predniSONE 20 MG TAB PO SCH (08:24)
[2021-03-31] MEDS: FOLIC ACID 1 MG TAB PO SCH (08:25)
[2021-03-31] MEDS: MULTIVITAMIN TAB PO SCH (08:25)
[2021-03-31] MEDS: PANTOprazole 40 MG TAB PO SCH (08:25)
[2021-03-31] MEDS: busPIRone 15 MG TAB PO SCH ×3 (08:25→20:15)
[2021-03-31] MEDS: CETIRIZINE HCL 10 MG TABLET PO SCH (08:26)
[2021-03-31] MEDS: GABAPENTIN 400 MG CAP PO SCH ×3 (08:26→20:16)
[2021-03-31] MEDS: CYANOCOBALAMIN (VITAMIN B-12) 100 MCG TABLET PO SCH (08:27)
[2021-03-31] MEDS: PROPRANOLOL HCL 10 MG TAB PO SCH ×2 (08:27→20:16)
[2021-03-31] MEDS: THIAMINE HCL 100 MG TAB PO SCH (08:27)
[2021-03-31] MEDS: PANCREAZE (LIPASE 10,500U) CAP PO SCH ×3 (08:27→18:06)
[2021-03-31] MEDS: buPROPion SR 150 MG TABCR PO SCH ×2 (08:28→20:16)
[2021-03-31] MEDS: FLUTICASONE/VILANTEROL 200/25MCG 14 PUFFS/INHALER INH SCH (08:28)
[2021-03-31] MEDS: FLUTICASONE PROPIONATE NA SPR 16 GM BTL SCH (08:28)
[2021-03-31] MEDS: FUROSEMIDE 20 MG TAB PO SCH (10:24)
--- NOTE | 2021-03-31 14:34 | Hospitalist Progress Note ---
Date of Service March 31, 2021 Assessment & Plan (1) Alcoholic hepatitis: Plan: #. Alcoholic hepatitis: Presented with very high LFTs with obstructive feature-with total bilirubin of 26, AST 188, ALT 46 and alkaline phos 303 as of 03/22/2021; and alcohol int oxication Admitting CT abd/pelvis showed enlarged fatty liver with mild cirrhosis. Small amount of ascites. Gastro regional marketing director recommended to transfer to a tertiary care center to evaluate for for possible liver failure. [facility] [place] recommended keeping patient at [facility] and treatment for possible acetaminophen toxicity. Completed the acetylcysteine regimen Case discussed with Dr. Stark that recommended steroid therapy after r/o SBP. Will need GI follow up on discharge. S/P paracentesis done where 950ml ascites fluid removed - neg for SBP, IV ATB DC'd, on PO prednisone x 28 days. He was strongly advised to go for inpatient rehab-this was extensively discussed with the significant other Has had PT evaluation and recommended rehab We will continue steroid on discharge as per GI recommendation Awaiting placement-medically stable to be discharged; the patient wants to go to rehab in [place] with plan to go home in [place] when the rehab is over and he is better. He was strongly advised to have follow-up appointment with clinical sales consultant fo r his alcoholic hepatitis and pancreatic mass. digital strategist senior manager is working on for possible placement-inpatient alcohol rehab #. Ascites: S/P paracentesis done where 950ml ascites fluid removed, will follow ascites culture and gram stain REceived IV albumin Ascites Gram stain and culture were negative, no evidence of SBP Intravenous ceftriaxone was discontinued #. Alcohol intoxication History of alcohol abuse Alcohol level 348 on admission Previous history of alcohol withdrawal and DT in the past Continue Ativan and gabapentin alcohol withdrawn protocol Counseling on alcohol cessation Continue thiamine and Folic acid Consider inpatient alcohol rehab Continue monitor closely for sign of alcohol withdraw and DT No signs and/or symptoms of withdrawal except minimal tremors involving the outstretched hands Ativan as needed for anxiety, will not need any Ativan upon discharge. #. Pancreatic Mass CT showed 3.7 cm heterogeneous pancreatic tail lesion. Gastro recommended outpatient EUS in 4 weeks to evaluate the panc lesion however this is likely a WON/necroma related to prior pancreatitis. Follow-up pancreatic MRI with contrast recommended for further evaluation. Will need to have GI follow-up as an outpatient #. Elevated lactic acid Resolved #. Electrolytes abnormalities Mostly related to alcohol abuse and poor oral intake Monitor and replace as appropriate #. Elevated INR Mostly related to acute alcohol hepatitis/ascites Received Vit K on admission Continue monitor INR and if above 2, will give vit K No sign of bleeding and will recheck INR #. Hypertension Fairly controlled, continue to monitor, continue home meds. DC amlodipine for concerns of leg swelling -use Lasix for few days, continue to monitor. DVT px SCD due to elevate INR and history of intermittent epistaxis, patient encouraged to ambulate while in hospital every few hours. CODE STATUS FULL CODE Patient requesting for referral to be updated of plan of care. Ms. Wendy Matute, contact #[phone].-Has been communicating with her regularly Admission and Anticipated Discharge Date Admission Date: March 18, 2021 Subjective Patient was sitting up in bed, on room air, NAD, no issues overnight. Patient denies any headache/dizziness/chills/fever/sore throat/other review of symptoms. Patient is eating and moving bowels okay. Patient's girlfriend Wendy given a phone call to update about the patient and the goals of care, she voiced understanding and was agreeable. Physical Exam Physical Exam: GENERAL: Alert and oriented x3. NAD, on RA. HEENT: No pallor, yellowing of skin and sclera since admission. Pupils equal, round and reactive to light. Oral mucosa moist. NECK: No JVD, no neck masses. HEART: S1 and S2 heard. Regular rate and rhythm. No murmur, no gallop. RESPIRATORY SYSTEM: Normal AP diameter. No accessory muscle use. No wheezing, no crackles. ABDOMEN: Soft, bowel sounds present, nontender, no distention. CENTRAL NERVOUS SYSTEM: Alert and oriented x3. No facial droop. Speech is clear. Obeys simple commands. Moves extremities. EXTREMITIES: No edema, no erythema seen. Right greater than left leg swelling, no erythema/warmth/tenderness. Bruises bilateral knee with dried scab. No signs of infection. Results & Data Results & Data ([facility]) Vital Signs (Past 12 Hours) Vital Signs Temp Pulse Resp BP Pulse Ox 03/31/21 11:51 36.6 C 20 115/85 95 03/31/21 06:30 36.9 C 88 20 101/54 L 97 03/31/21 03:51 36.8 C 70 18 101/62 95 (1) Alcoholic hepatitis Ascites presence: with ascites Qualified Code(s): K70.11 - Alcoholic hepatitis with ascites
[2021-03-31] MEDS: MONTELUKAST SODIUM 10 MG TABLET PO SCH (20:16)
[2021-03-31] MEDS: MIRTAZAPINE TAB 15 MG TAB PO SCH (20:16)
[2021-04-01 06:24] LABS: Hematocrit (blood only) 38.4 % (42-52); Hemoglobin 13.1 g/dL (14.0-18.0); Mean Corpuscular Hemoglobin 36.5 pg (25-34); Mean Corpuscular Hgb Conc 34.1 g/dL (32-36); Mean Platelet Volume 11.5 fL (7.4-10.4); Platelet Count 345 K/uL (130-400); RDW Coefficient of Variation 17.7 % (11.5-14.5); RDW Standard Deviation 69.2 fL (36.4-46.3); Red Blood Count 3.59 M/uL (4.7-6.1); White Blood Count 27.11 K/uL (4.8-10.8)
[2021-04-01 06:33] LABS: INR 1.4 (0.9-1.1); Prothrombin Time 13.4 Seconds (9.0-12.0)
[2021-04-01 07:05] LABS: Alanine Aminotransferase 103 U/L (12-78); Alkaline Phosphatase 286 U/L (45-117); Aspartate Aminotransferase 164 U/L (15-37); Bilirubin,Total 19.4 mg/dl (0.2-1); Blood Urea Nitrogen 14 mg/dl (7-18); Calcium 8.7 mg/dl (8.5-10.1); Carbon Dioxide 23 mmol/L (21-32); Chloride 102 mmol/L (98-107); Glucose 87 mg/dl (70-99); Potassium 3.6 mmol/L (3.5-5.1); Sodium 134 mmol/L (136-145)
[2021-04-01] MEDS: buPROPion SR 150 MG TABCR PO SCH ×2 (08:20→20:19)
[2021-04-01] MEDS: busPIRone 15 MG TAB PO SCH ×3 (08:20→20:18)
[2021-04-01] MEDS: PROPRANOLOL HCL 10 MG TAB PO SCH ×2 (08:20→20:17)
[2021-04-01] MEDS: GABAPENTIN 400 MG CAP PO SCH ×3 (08:21→20:17)
[2021-04-01] MEDS: THIAMINE HCL 100 MG TAB PO SCH (08:21)
[2021-04-01] MEDS: PANTOprazole 40 MG TAB PO SCH (08:21)
[2021-04-01] MEDS: CYANOCOBALAMIN (VITAMIN B-12) 100 MCG TABLET PO SCH (08:21)
[2021-04-01] MEDS: predniSONE 20 MG TAB PO SCH (08:21)
[2021-04-01] MEDS: FOLIC ACID 1 MG TAB PO SCH (08:22)
[2021-04-01] MEDS: MULTIVITAMIN TAB PO SCH (08:22)
[2021-04-01] MEDS: FLUTICASONE PROPIONATE NA SPR 16 GM BTL SCH (08:22)
[2021-04-01] MEDS: FUROSEMIDE 20 MG TAB PO SCH (08:22)
[2021-04-01] MEDS: PANCREAZE (LIPASE 10,500U) CAP PO SCH ×3 (08:22→17:55)
[2021-04-01] MEDS: FLUTICASONE/VILANTEROL 200/25MCG 14 PUFFS/INHALER INH SCH (08:23)
[2021-04-01] MEDS ORDERED: FUROSEMIDE 20 MG TAB PO ONE (09:45)
[2021-04-01] MEDS: CETIRIZINE HCL 10 MG TABLET PO SCH (11:13)
--- NOTE | 2021-04-01 16:06 | Hospitalist Progress Note ---
Date of Service April 01, 2021 Assessment & Plan (1) Alcoholic hepatitis: Plan: #. Alcoholic hepatitis: Presented with very high LFTs with obstructive feature-with total bilirubin of 26, AST 188, ALT 46 and alkaline phos 303 as of 03/22/2021; and alcohol int oxication Admitting CT abd/pelvis showed enlarged fatty liver with mild cirrhosis. Small amount of ascites. Gastro police communications operator recommended to transfer to a tertiary care center to evaluate for for possible liver failure. [facility] GI specialist recommended keeping patient at [facility] and treatment for possible acetaminophen toxicity. Completed the acetylcysteine regimen Case discussed with Dr. Stark that recommended steroid therapy after r/o SBP. Will need GI follow up on discharge. S/P paracentesis done where 950ml ascites fluid removed - neg for SBP, IV ATB DC'd, on PO prednisone x 28 days. He was strongly advised to go for inpatient rehab-this was extensively discussed with the significant other Has had PT evaluation and recommended rehab We will continue steroid on discharge as per GI recommendation Awaiting placement-medically stable to be discharged; the patient wants to go to rehab in [place] with plan to go home in [place] when the rehab is over and he is better. He was strongly advised to have follow-up appointment with route service manager fo r his alcoholic hepatitis and pancreatic mass. abattoir manager is working on for possible placement-inpatient alcohol rehab #. Ascites: S/P paracentesis done where 950ml ascites fluid removed, will follow ascites culture and gram stain REceived IV albumin Ascites Gram stain and culture were negative, no evidence of SBP Intravenous ceftriaxone was discontinued #. Alcohol intoxication History of alcohol abuse Alcohol level 348 on admission Previous history of alcohol withdrawal and DT in the past Continue Ativan and gabapentin alcohol withdrawn protocol Counseling on alcohol cessation Continue thiamine and Folic acid Consider inpatient alcohol rehab Continue monitor closely for sign of alcohol withdraw and DT No signs and/or symptoms of withdrawal except minimal tremors involving the outstretched hands Ativan as needed for anxiety, will not need any Ativan upon discharge. #. Pancreatic Mass CT showed 3.7 cm heterogeneous pancreatic tail lesion. Gastro recommended outpatient EUS in 4 weeks to evaluate the panc lesion however this is likely a WON/necroma related to prior pancreatitis. Follow-up pancreatic MRI with contrast recommended for further evaluation. Will need to have GI follow-up as an outpatient #. Elevated lactic acid Resolved #. Electrolytes abnormalities Mostly related to alcohol abuse and poor oral intake Monitor and replace as appropriate #. Elevated INR Mostly related to acute alcohol hepatitis/ascites Received Vit K on admission Continue monitor INR and if above 2, will give vit K No sign of bleeding and will recheck INR #. Hypertension Fairly controlled, continue to monitor, continue home meds. DC amlodipine for concerns of leg swelling -use Lasix for few days, continue to monitor. Leg swelling still the same. Increasing Lasix dose to 20 mg daily. DVT px SCD due to elevate INR and history of intermittent epistaxis, patient encouraged to ambulate while in hospital every few hours. CODE STATUS FULL CODE Patient requesting for referral to be updated of plan of care. Ms. Wendy Matute, contact #[phone].-Has been communicating with her regularly Admission and Anticipated Discharge Date Admission Date: March 18, 2021 Subjective Patient was sitting up in bed, on room air, NAD, no issues overnight. Patient denies any headache/dizziness/chills/fever/sore throat/other review of symptoms. Patient is eating and moving bowels okay. Physical Exam Physical Exam: GENERAL: Alert and oriented x3. NAD, on RA. HEENT: No pallor, yellowing of skin and sclera since admission. Pupils equal, round and reactive to light. Oral mucosa moist. NECK: No JVD, no neck masses. HEART: S1 and S2 heard. Regular rate and rhythm. No murmur, no gallop. RESPIRATORY SYSTEM: Normal AP diameter. No accessory muscle use. No wheezing, no crackles. ABDOMEN: Soft, bowel sounds present, nontender, no distention. CENTRAL NERVOUS SYSTEM: Alert and oriented x3. No facial droop. Speech is clear. Obeys simple commands. Moves extremities. EXTREMITIES: No edema, no erythema seen. Right greater than left leg swelling, no erythema/warmth/tenderness. Bruises bilateral knee with dried scab. No signs of infection. Results & Data Results & Data ([facility]) Vital Signs (Past 12 Hours) Vital Signs Temp Pulse Pulse Resp BP Pulse Ox 04/01/21 11:00 36.4 C L 72 24 122/66 93 04/01/21 09:00 76 04/01/21 06:55 36.4 C L 75 20 120/86 95 (1) Alcoholic hepatitis Ascites presence: with ascites Qualified Code(s): K70.11 - Alcoholic hepatitis with ascites
[2021-04-01] MEDS: MIRTAZAPINE TAB 15 MG TAB PO SCH (20:17)
[2021-04-01] MEDS: MONTELUKAST SODIUM 10 MG TABLET PO SCH (20:17)
[2021-04-02] MEDS: predniSONE 20 MG TAB PO SCH (07:27)
[2021-04-02] MEDS: FOLIC ACID 1 MG TAB PO SCH (07:28)
[2021-04-02] MEDS: PROPRANOLOL HCL 10 MG TAB PO SCH ×2 (07:29→20:06)
[2021-04-02] MEDS: GABAPENTIN 400 MG CAP PO SCH ×3 (07:29→20:05)
[2021-04-02] MEDS: PANTOprazole 40 MG TAB PO SCH (07:30)
[2021-04-02] MEDS: PANCREAZE (LIPASE 10,500U) CAP PO SCH ×3 (07:30→16:08)
[2021-04-02] MEDS: buPROPion SR 150 MG TABCR PO SCH ×2 (07:30→20:06)
[2021-04-02] MEDS: THIAMINE HCL 100 MG TAB PO SCH (07:30)
[2021-04-02] MEDS: CYANOCOBALAMIN (VITAMIN B-12) 100 MCG TABLET PO SCH (07:31)
[2021-04-02] MEDS: FUROSEMIDE 20 MG TAB PO SCH (07:31)
[2021-04-02] MEDS: busPIRone 15 MG TAB PO SCH ×3 (07:31→20:05)
[2021-04-02] MEDS: CETIRIZINE HCL 10 MG TABLET PO SCH (07:32)
[2021-04-02] MEDS: FLUTICASONE PROPIONATE NA SPR 16 GM BTL SCH (07:32)
[2021-04-02] MEDS: FLUTICASONE/VILANTEROL 200/25MCG 14 PUFFS/INHALER INH SCH (07:32)
[2021-04-02 09:04] LABS: Hematocrit (blood only) 39.2 % (42-52); Hemoglobin 13.5 g/dL (14.0-18.0); Mean Corpuscular Hgb Conc 34.4 g/dL (32-36); Mean Corpuscular Volume 104.5 fL (80-100); Mean Platelet Volume 11.9 fL (7.4-10.4); Platelet Count 372 K/uL (130-400); RDW Coefficient of Variation 17.3 % (11.5-14.5); RDW Standard Deviation 66.7 fL (36.4-46.3); Red Blood Count 3.75 M/uL (4.7-6.1); White Blood Count 27.71 K/uL (4.8-10.8)
[2021-04-02] MEDS: MULTIVITAMIN TAB PO SCH (09:05)
[2021-04-02 09:17] LABS: INR 1.4 (0.9-1.1); Prothrombin Time 13.5 Seconds (9.0-12.0)
[2021-04-02 09:46] LABS: Alanine Aminotransferase 112 U/L (12-78); Alkaline Phosphatase 316 U/L (45-117); Aspartate Aminotransferase 187 U/L (15-37); Bilirubin,Total 20.3 mg/dl (0.2-1); Blood Urea Nitrogen 12 mg/dl (7-18); Calcium 9.1 mg/dl (8.5-10.1); Carbon Dioxide 22 mmol/L (21-32); Chloride 103 mmol/L (98-107); Glucose 84 mg/dl (70-99); Potassium 3.4 mmol/L (3.5-5.1); Sodium 135 mmol/L (136-145)
--- NOTE | 2021-04-02 17:02 | Hospitalist Progress Note ---
Date of Service April 02, 2021 Assessment & Plan (1) Alcoholic hepatitis: Plan: #. Alcoholic hepatitis: Presented with very high LFTs with obstructive feature-with total bilirubin of 26, AST 188, ALT 46 and alkaline phos 303 as of 03/22/2021; and alcohol int oxication Admitting CT abd/pelvis showed enlarged fatty liver with mild cirrhosis. Small amount of ascites. Gastro salesperson books recommended to transfer to a tertiary care center to evaluate for for possible liver failure. [facility] [place] recommended keeping patient at [facility] and treatment for possible acetaminophen toxicity. Completed the acetylcysteine regimen Case discussed with Dr. Stark that recommended steroid therapy after r/o SBP. Will need GI follow up on discharge. S/P paracentesis done where 950ml ascites fluid removed - neg for SBP, IV ATB DC'd, on PO prednisone x 28 days. He was strongly advised to go for inpatient rehab-this was extensively discussed with the significant other Has had PT evaluation and recommended rehab We will continue steroid on discharge as per GI recommendation Awaiting placement-medically stable to be discharged; the patient wants to go to rehab in [place] with plan to go home in [place] when the rehab is over and he is better. He was strongly advised to have follow-up appointment with rewinder fo r his alcoholic hepatitis and pancreatic mass. kosher dietary service manager is working on for possible placement-inpatient alcohol rehab #. Ascites: S/P paracentesis done where 950ml ascites fluid removed, will follow ascites culture and gram stain REceived IV albumin Ascites Gram stain and culture were negative, no evidence of SBP Intravenous ceftriaxone was discontinued #. Alcohol intoxication History of alcohol abuse Alcohol level 348 on admission Previous history of alcohol withdrawal and DT in the past Continue Ativan and gabapentin alcohol withdrawn protocol Counseling on alcohol cessation Continue thiamine and Folic acid Consider inpatient alcohol rehab Continue monitor closely for sign of alcohol withdraw and DT No signs and/or symptoms of withdrawal except minimal tremors involving the outstretched hands Ativan as needed for anxiety, will not need any Ativan upon discharge. #. Pancreatic Mass CT showed 3.7 cm heterogeneous pancreatic tail lesion. Gastro recommended outpatient EUS in 4 weeks to evaluate the panc lesion however this is likely a WON/necroma related to prior pancreatitis. Follow-up pancreatic MRI with contrast recommended for further evaluation. Will need to have GI follow-up as an outpatient #. Elevated lactic acid Resolved #. Electrolytes abnormalities Mostly related to alcohol abuse and poor oral intake Monitor and replace as appropriate #. Elevated INR Mostly related to acute alcohol hepatitis/ascites Received Vit K on admission Continue monitor INR and if above 2, will give vit K No sign of bleeding and will recheck INR #. Hypertension Fairly controlled, continue to monitor, continue home meds. DC amlodipine for concerns of leg swelling -use Lasix for few days, continue to monitor. Leg swelling improving, continue with Lasix 20 mg daily for few days. DVT px SCD due to elevate INR and history of intermittent epistaxis, patient encouraged to ambulate while in hospital every few hours. CODE STATUS FULL CODE Patient requesting for referral to be updated of plan of care. Ms. Wendy Matute, contact #[phone].-Has been communicating with her regularly Admission and Anticipated Discharge Date Admission Date: March 18, 2021 Subjective Patient was sitting up in bed, on room air, NAD, no issues overnight. Patient denies any headache/dizziness/chills/fever/sore throat/other review of symptoms. Patient is eating and moving bowels okay. Physical Exam Physical Exam: GENERAL: Alert and oriented x3. NAD, on RA. HEENT: No pallor, yellowing of skin and sclera since admission. Pupils equal, round and reactive to light. Oral mucosa moist. NECK: No JVD, no neck masses. HEART: S1 and S2 heard. Regular rate and rhythm. No murmur, no gallop. RESPIRATORY SYSTEM: Normal AP diameter. No accessory muscle use. No wheezing, no crackles. ABDOMEN: Soft, bowel sounds present, nontender, no distention. CENTRAL NERVOUS SYSTEM: Alert and oriented x3. No facial droop. Speech is clear. Obeys simple commands. Moves extremities. EXTREMITIES: No edema, no erythema seen. Right greater than left leg swelling, no erythema/warmth/tenderness. Bruises bilateral knee with dried scab. No signs of infection. Results & Data Results & Data ([facility]) Vital Signs (Past 12 Hours) Vital Signs Temp Pulse Resp BP Pulse Ox 04/02/21 15:25 36.7 C 76 16 121/78 96 04/02/21 07:21 36.9 C 80 18 124/85 93 (1) Alcoholic hepatitis Ascites presence: with ascites Qualified Code(s): K70.11 - Alcoholic hepatitis with ascites
[2021-04-02] MEDS: MIRTAZAPINE TAB 15 MG TAB PO SCH (20:09)
[2021-04-02] MEDS: MONTELUKAST SODIUM 10 MG TABLET PO SCH (20:09)
[2021-04-03] MEDS: CYANOCOBALAMIN (VITAMIN B-12) 100 MCG TABLET PO SCH (07:55)
[2021-04-03] MEDS: FUROSEMIDE 20 MG TAB PO SCH (07:55)
[2021-04-03] MEDS: predniSONE 20 MG TAB PO SCH (07:55)
[2021-04-03] MEDS: PANCREAZE (LIPASE 10,500U) CAP PO SCH ×3 (07:55→16:52)
[2021-04-03] MEDS: PANTOprazole 40 MG TAB PO SCH (07:55)
[2021-04-03] MEDS: THIAMINE HCL 100 MG TAB PO SCH (07:56)
[2021-04-03] MEDS: busPIRone 15 MG TAB PO SCH ×3 (07:56→22:03)
[2021-04-03] MEDS: FOLIC ACID 1 MG TAB PO SCH (07:56)
[2021-04-03] MEDS: buPROPion SR 150 MG TABCR PO SCH ×2 (07:56→22:04)
[2021-04-03] MEDS: MULTIVITAMIN TAB PO SCH (07:56)
[2021-04-03] MEDS: CETIRIZINE HCL 10 MG TABLET PO SCH (07:56)
[2021-04-03] MEDS: PROPRANOLOL HCL 10 MG TAB PO SCH ×2 (07:56→22:04)
[2021-04-03] MEDS: GABAPENTIN 400 MG CAP PO SCH ×3 (07:57→22:05)
[2021-04-03] MEDS: FLUTICASONE/VILANTEROL 200/25MCG 14 PUFFS/INHALER INH SCH (07:57)
[2021-04-03] MEDS: FLUTICASONE PROPIONATE NA SPR 16 GM BTL SCH (07:57)
[2021-04-03 08:06] LABS: Hematocrit (blood only) 38.2 % (42-52); Hemoglobin 12.7 g/dL (14.0-18.0); Mean Corpuscular Hemoglobin 35.5 pg (25-34); Mean Corpuscular Hgb Conc 33.2 g/dL (32-36); Mean Corpuscular Volume 106.7 fL (80-100); Mean Platelet Volume 11.8 fL (7.4-10.4); Platelet Count 319 K/uL (130-400); RDW Coefficient of Variation 17.4 % (11.5-14.5); RDW Standard Deviation 68.2 fL (36.4-46.3); Red Blood Count 3.58 M/uL (4.7-6.1); White Blood Count 21.86 K/uL (4.8-10.8)
[2021-04-03 08:19] LABS: INR 1.4 (0.9-1.1)
[2021-04-03 08:47] LABS: Albumin Globulin Ratio 0.4 (0.9-2); Albumin Level 1.8 gm/dl (3.4-5.0); BUN Creatinine Ratio 20.9 (10-20); Bilirubin,Total 17.4 mg/dl (0.2-1); Calcium 8.5 mg/dl (8.5-10.1); Creatinine Clr Calc Pharmacy 190.3 ml/min; Est GFR (Non-African American) 126.8 ml/min; Globulin 4.6 gm/dl (2.5-4.0); Potassium 3.5 mmol/L (3.5-5.1); Total Protein 6.4 gm/dl (6.4-8.2)
--- NOTE | 2021-04-03 13:57 | Hospitalist Progress Note ---
Date of Service April 03, 2021 Assessment & Plan (1) Alcoholic hepatitis: Plan: #. Alcoholic hepatitis: Presented with very high LFTs with obstructive feature-with total bilirubin of 26, AST 188, ALT 46 and alkaline phos 303 as of 03/22/2021; and alcohol int oxication Admitting CT abd/pelvis showed enlarged fatty liver with mild cirrhosis. Small amount of ascites. Gastro habilitation assistant recommended to transfer to a tertiary care center to evaluate for for possible liver failure. [facility] [place] recommended keeping patient at [facility] and treatment for possible acetaminophen toxicity. Completed the acetylcysteine regimen Case discussed with Dr. Stark that recommended steroid therapy after r/o SBP. Will need GI follow up on discharge. S/P paracentesis done where 950ml ascites fluid removed - neg for SBP, IV ATB DC'd, on PO prednisone x 28 days. He was strongly advised to go for inpatient rehab-this was extensively discussed with the significant other Has had PT evaluation and recommended rehab We will continue steroid on discharge as per GI recommendation Awaiting placement-medically stable to be discharged; the patient wants to go to rehab in [place] with plan to go home in [place] when the rehab is over and he is better. He was strongly advised to have follow-up appointment with ict teacher fo r his alcoholic hepatitis and pancreatic mass. financial systems manager is working on for possible placement-inpatient alcohol rehab #. Ascites: S/P paracentesis done where 950ml ascites fluid removed, will follow ascites culture and gram stain REceived IV albumin Ascites Gram stain and culture were negative, no evidence of SBP Intravenous ceftriaxone was discontinued #. Alcohol intoxication History of alcohol abuse Alcohol level 348 on admission Previous history of alcohol withdrawal and DT in the past Continue Ativan and gabapentin alcohol withdrawn protocol Counseling on alcohol cessation Continue thiamine and Folic acid Consider inpatient alcohol rehab Continue monitor closely for sign of alcohol withdraw and DT No signs and/or symptoms of withdrawal except minimal tremors involving the outstretched hands Ativan as needed for anxiety, will not need any Ativan upon discharge. #. Pancreatic Mass CT showed 3.7 cm heterogeneous pancreatic tail lesion. Gastro recommended outpatient EUS in 4 weeks to evaluate the panc lesion however this is likely a WON/necroma related to prior pancreatitis. Follow-up pancreatic MRI with contrast recommended for further evaluation. Will need to have GI follow-up as an outpatient #. Elevated lactic acid Resolved #. Electrolytes abnormalities Mostly related to alcohol abuse and poor oral intake Monitor and replace as appropriate #. Elevated INR Mostly related to acute alcohol hepatitis/ascites Received Vit K on admission Continue monitor INR and if above 2, will give vit K No sign of bleeding and will recheck INR #. Hypertension Fairly controlled, continue to monitor, continue home meds. DC amlodipine for concerns of leg swelling -use Lasix for few days, continue to monitor. Leg swelling improving, continue with Lasix 20 mg daily for few days. DVT px SCD due to elevate INR and history of intermittent epistaxis, patient encouraged to ambulate while in hospital every few hours. CODE STATUS FULL CODE Patient requesting for referral to be updated of plan of care. Ms. Wendy Matute, contact #[phone].-Has been communicating with her regularly Admission and Anticipated Discharge Date Admission Date: March 18, 2021 Subjective Patient was sitting up in bed, on room air, NAD, no issues overnight. Patient denies any headache/dizziness/chills/fever/sore throat/other review of symptoms. Patient is eating and moving bowels okay. Pt advised to ambulate every few hours. Physical Exam Physical Exam: GENERAL: Alert and oriented x3. NAD, on RA. HEENT: No pallor, yellowing of skin and sclera since admission. Pupils equal, round and reactive to light. Oral mucosa moist. NECK: No JVD, no neck masses. HEART: S1 and S2 heard. Regular rate and rhythm. No murmur, no gallop. RESPIRATORY SYSTEM: Normal AP diameter. No accessory muscle use. No wheezing, no crackles. ABDOMEN: Soft, bowel sounds present, nontender, no distention. CENTRAL NERVOUS SYSTEM: Alert and oriented x3. No facial droop. Speech is clear. Obeys simple commands. Moves extremities. EXTREMITIES: 1+ edema RLE, no erythema seen. Right greater than left leg swelling, no erythema/warmth/tenderness. Bruises bilateral knee with dried scab. No signs of infection. Results & Data Results & Data ([facility]) Vital Signs (Past 12 Hours) Vital Signs Temp Pulse Resp BP Pulse Ox 04/03/21 07:50 37.1 C 71 18 118/78 94 (1) Alcoholic hepatitis Ascites presence: with ascites Qualified Code(s): K70.11 - Alcoholic hepatitis with ascites
[2021-04-03] MEDS: MIRTAZAPINE TAB 15 MG TAB PO SCH (22:06)
[2021-04-03] MEDS: MONTELUKAST SODIUM 10 MG TABLET PO SCH (22:06)
[2021-04-04 07:00] LABS: Hematocrit (blood only) 37.7 % (42-52); Hemoglobin 12.9 g/dL (14.0-18.0); Mean Corpuscular Hemoglobin 35.8 pg (25-34); Mean Corpuscular Hgb Conc 34.2 g/dL (32-36); Mean Corpuscular Volume 104.7 fL (80-100); Mean Platelet Volume 11.6 fL (7.4-10.4); Platelet Count 302 K/uL (130-400); White Blood Count 22.89 K/uL (4.8-10.8)
[2021-04-04] MEDS: ACETAMINOPHEN 325 MG TAB PO PRN (08:07)
[2021-04-04] MEDS: THIAMINE HCL 100 MG TAB PO SCH (08:08)
[2021-04-04] MEDS: PANTOprazole 40 MG TAB PO SCH (08:08)
[2021-04-04] MEDS: CETIRIZINE HCL 10 MG TABLET PO SCH (08:08)
[2021-04-04] MEDS: MULTIVITAMIN TAB PO SCH (08:08)
[2021-04-04] MEDS: PANCREAZE (LIPASE 10,500U) CAP PO SCH ×3 (08:08→16:58)
[2021-04-04] MEDS: FOLIC ACID 1 MG TAB PO SCH (08:08)
[2021-04-04] MEDS: predniSONE 20 MG TAB PO SCH (08:08)
[2021-04-04] MEDS: FUROSEMIDE 20 MG TAB PO SCH (08:08)
[2021-04-04] MEDS: CYANOCOBALAMIN (VITAMIN B-12) 100 MCG TABLET PO SCH (08:08)
[2021-04-04] MEDS: busPIRone 15 MG TAB PO SCH ×3 (08:09→21:42)
[2021-04-04] MEDS: buPROPion SR 150 MG TABCR PO SCH ×2 (08:09→21:43)
[2021-04-04] MEDS: GABAPENTIN 400 MG CAP PO SCH ×3 (08:09→21:43)
[2021-04-04] MEDS: FLUTICASONE/VILANTEROL 200/25MCG 14 PUFFS/INHALER INH SCH (08:09)
[2021-04-04] MEDS: PROPRANOLOL HCL 10 MG TAB PO SCH ×2 (08:09→21:44)
[2021-04-04] MEDS: FLUTICASONE PROPIONATE NA SPR 16 GM BTL SCH (08:10)
[2021-04-04] MEDS: LOPERAMIDE HCL 2 MG CAP PO SCH ×3 (13:29→21:44)
--- NOTE | 2021-04-04 17:08 | Hospitalist Progress Note ---
Date of Service April 04, 2021 Assessment & Plan (1) Alcoholic hepatitis: Plan: #. Alcoholic hepatitis: Presented with very high LFTs with obstructive feature-with total bilirubin of 26, AST 188, ALT 46 and alkaline phos 303 as of 03/22/2021; and alcohol intoxica tion Admitting CT abd/pelvis showed enlarged fatty liver with mild cirrhosis. Small amount of ascites. Gastro transmission line engineer recommended to transfer to a tertiary care center to evaluate for for possible liver failure. [facility] GI specialist recommended keeping patient at [facility] and treatment for possible acetaminophen toxicity. Completed the acetylcysteine regimen Case discussed with Dr. Stark that recommended steroid therapy after r/o SBP. Will need GI follow up on discharge. We will continue steroid on discharge as per GI recommendation Awaiting placement-medically stable to be discharged; the patient wants to go to rehab in [place] with plan to go home in [place] when the rehab is over and he is better. He was strongly advised to have follow-up appointment with scientific manager fo r his alcoholic hepatitis and pancreatic mass. disability case manager is working on for possible placement-inpatient alcohol rehab Remains medically stable to be discharged #. Ascites: S/P paracentesis done where 950ml ascites fluid removed - neg for SBP, IV ATB DC'd, on PO prednisone x 28 days. S/P paracentesis done where 950ml ascites fluid removed, will follow ascites culture and gram stain REceived IV albumin Ascites Gram stain and culture were negative, no evidence of SBP Intravenous ceftriaxone was discontinued #. Alcohol intoxication History of alcohol abuse Alcohol level 348 on admission Previous history of alcohol withdrawal and DT in the past Continue Ativan and gabapentin alcohol withdrawn protocol Counseling on alcohol cessation Continue thiamine and Folic acid Consider inpatient alcohol rehab Continue monitor closely for sign of alcohol withdraw and DT No signs and/or symptoms of withdrawal except minimal tremors involving the outstretched hands Ativan as needed for anxiety, will not need any Ativan upon discharge. Resolved #. Pancreatic Mass CT showed 3.7 cm heterogeneous pancreatic tail lesion. Gastro recommended outpatient EUS in 4 weeks to evaluate the panc lesion however this is likely a WON/necroma related to prior pancreatitis. Follow-up pancreatic MRI with contrast recommended for further evaluation. Will need to have GI follow-up as an outpatient #. Elevated lactic acid Resolved #. Electrolytes abnormalities Mostly related to alcohol abuse and poor oral intake Monitor and replace as appropriate #. Elevated INR Mostly related to acute alcohol hepatitis/ascites Received Vit K on admission Continue monitor INR and if above 2, will give vit K No sign of bleeding and will recheck INR #. Hypertension Fairly controlled, continue to monitor, continue home meds. DC amlodipine for concerns of leg swelling -use Lasix for few days, continue to monitor. Leg swelling improving, continue with Lasix 20 mg daily for few days. DVT px SCD due to elevate INR and history of intermittent epistaxis, patient encouraged to ambulate while in hospital every few hours. CODE STATUS FULL CODE Patient requesting for referral to be updated of plan of care. Ms. Wendy Matute, contact #[phone].-Has been communicating with her regularly Admission and Anticipated Discharge Date Admission Date: March 18, 2021 Subjective 03/22/2021 The patient was seen and examined in telemetry unit He remains pleasantly confused and has been requiring one-to-one sitter He is generally weak but does not have any acute distress 03/23/2021 The patient was seen and examined in telemetry unit He has been much better today and seem to be more rational He was advised that he needs to be in the hospital for a few days Remains extremely weak and lethargic 03/24/2021 The patient was seen and examined in telemetry unit He has been much better today No more confusion but remains extremely weak and tired He has had PT evaluation and recommended rehab He has been moving bowel normally 03/25/2021 The patient was seen and examined in telemetry unit He remains weak and lethargic Denies any other symptoms He is willing to go to rehab 03/26/2021 The patient was seen and examined in telemetry unit He remains weak and lethargic and has minimal tremors with outstretched hands Denies any other symptoms abdominal pain, nausea and or vomiting 03/27/2021 The patient was seen and examined in telemetry unit He has been feeling much better and denies any significant symptoms except weakness He wants to go to alcohol rehab facility and does not want to go home Discussed with the significant other who mentioned that it will depend on him to decide on that 04/04/2021 The patient was seen and examined in the medical floor He remains generally weak but denies any other symptoms Awaiting placement Review of Systems Review of Systems: All systems reviewed and are unremarkable except as noted below Constitutional: + malaise Gastrointestinal: + bloating; no abdominal pain, no nausea and no vomiting Physical Exam Physical Exam: Sitting at the edge of the bed without any apparent distress Constitutional: well developed, well nourished, + ill appearing and + obese ENMT: external ear and nose normal, oropharynx normal Neck: trachea midline, no thyromegaly Respiratory: + respiratory distress (Minimal distress at rest) Auscultation: + diminished lung sounds; no crackles (Minimal bibasilar crackles) Cardiovascular: Rate/Rhythm: regular rate and regular rhythm; not tachycardic Heart Sounds: normal S1 and normal S2; no murmur Extremities: + edema (1+ edema bilaterally) Gastrointestinal (Abdomen): Inspection/Auscultation: + abdomen distended and normal bowel sounds Percussion/Palpation: + abdomen tender (Mildly tender all over) and abdomen soft; no guarding Musculoskeletal: No acute arthritis in any joint Skin: [place] discoloration of the skin and a sclera Neurologic: Alert, awake and oriented x3, generally weak Results & Data Results & Data ([facility]) Vital Signs (Past 12 Hours) Vital Signs Temp Pulse Resp BP Pulse Ox 04/04/21 15:47 37.0 C 78 16 130/88 95 04/04/21 07:40 36.9 C 74 16 118/78 94 Laboratory Results Short CBC 04/04/21 Range/Units 06:32 WBC 22.89 H (4.8-10.8) K/uL Hgb 12.9 L (14.0-18.0) g/dL Hct 37.7 L (42-52) % Plt Count 302 (130-400) K/uL BMP 04/04/21 06:32 Sodium 133 L Medications Administered Current Inpatient Medications Acetaminophen (Acetaminophen 325 Mg Tab) 325 mg PO Q6H PRN PRN Reason: Mild Pain Stop: 04/17/21 05:48 Last Admin: 04/04/21 08:07 Dose: 325 mg Documented by: Lipase/Protease/Amylase (Pancreaze (Lipase 10,500u) Cap) 1 cap PO TIDM [facility] Stop: 04/23/21 11:59 Last Admin: 04/04/21 16:58 Dose: 1 cap Documented by: Bupropion HCl (Bupropion Sr 150 Mg Tabcr) 150 mg PO BID [facility] Stop: 04/17/21 08:59 Last Admin: 04/04/21 08:09 Dose: 150 mg Documented by: Buspirone HCl (Buspirone 15 Mg Tab) 30 mg PO TID [facility] Stop: 04/17/21 08:59 Last Admin: 04/04/21 13:06 Dose: 30 mg Documented by: Cetirizine HCl (Cetirizine Hcl 10 Mg Tablet) 10 mg PO DAILY [facility] Stop: 04/17/21 08:59 Last Admin: 04/04/21 08:08 Dose: 10 mg Documented by: Clonidine HCl (Clonidine Hcl 0.1 Mg Tab) 0.1 mg PO BID PRN PRN Reason: for SBP above 170 Stop: 04/18/21 10:15 Cyanocobalamin (Cyanocobalamin (Vitamin B-12) 100 Mcg Tablet) 100 mcg PO DAILY [facility] Stop: 04/17/21 08:59 Last Admin: 04/04/21 08:08 Dose: 100 mcg Documented by: Fluticasone Propionate (Fluticasone Propionate Na Spr 16 Gm Btl) 2 sprays NA DAILY [facility] Stop: 04/17/21 08:59 Last Admin: 04/04/21 08:10 Dose: 2 sprays Documented by: Fluticasone/Vilanterol (Fluticasone/Vilanterol 200/25mcg 14 Puffs/Inhaler) 1 puffs INH DAILY [facility] Stop: 04/17/21 08:59 Last Admin: 04/04/21 08:09 Dose: 1 puffs Documented by: Folic Acid (Folic Acid 1 Mg Tab) 1 mg PO DAILY [facility] Stop: 04/17/21 08:59 Last Admin: 04/04/21 08:08 Dose: 1 mg Documented by: Furosemide (Furosemide 20 Mg Tab) 20 mg PO QAM [facility] Stop: 05/02/21 08:59 Last Admin: 04/04/21 08:08 Dose: 20 mg Documented by: Gabapentin (Gabapentin 400 Mg Cap) 400 mg PO TID [facility] Stop: 04/17/21 08:59 Last Admin: 04/04/21 13:06 Dose: 400 mg Documented by: Promethazine HCl 12.5 mg/ (Sodium Chloride) 50.5 mls @ 202 mls/hr IV Q6H PRN PRN Reason: Nausea And Vomiting Stop: 04/17/21 05:48 Loperamide HCl (Loperamide Hcl 2 Mg Cap) 2 mg PO Q4H [facility] Stop: 05/04/21 13:59 Last Admin: 04/04/21 16:58 Dose: 2 mg Documented by: Lorazepam (Lorazepam 0.5 Mg Tab) 0.25 mg PO Q8H PRN PRN Reason: Anxiety Stop: 04/23/21 10:16 Last Admin: 03/25/21 21:29 Dose: 0.25 mg Documented by: Mirtazapine (Mirtazapine Tab 15 Mg Tab) 15 mg PO HS [facility] Stop: 04/17/21 20:59 Last Admin: 04/03/21 22:06 Dose: 15 mg Documented by: Montelukast Sodium (Montelukast Sodium 10 Mg Tablet) 10 mg PO HS [facility] Stop: 04/17/21 20:59 Last Admin: 04/03/21 22:06 Dose: 10 mg Documented by: Multivitamins (Multivitamin Tab) 1 tab PO DAILY [facility] Stop: 04/17/21 08:59 Last Admin: 04/04/21 08:08 Dose: 1 tab Documented by: Pantoprazole Sodium (Pantoprazole 40 Mg Tab) 40 mg PO DAILY [facility] Stop: 04/17/21 08:59 Last Admin: 04/04/21 08:08 Dose: 40 mg Documented by: Prednisone (Prednisone 20 Mg Tab) 40 mg PO DAILY [facility] Stop: 04/21/21 08:59 Last Admin: 04/04/21 08:08 Dose: 40 mg Documented by: Propranolol HCl (Propranolol Hcl 10 Mg Tab) 10 mg PO BID [facility] Stop: 04/28/21 20:59 Last Admin: 04/04/21 08:09 Dose: 10 mg Documented by: Thiamine HCl (Thiamine Hcl 100 Mg Tab) 100 mg PO DAILY [facility] Stop: 04/17/21 08:59 Last Admin: 04/04/21 08:08 Dose: 100 mg Documented by: (1) Alcoholic hepatitis Ascites presence: with ascites Qualified Code(s): K70.11 - Alcoholic hepatitis with ascites
[2021-04-04] MEDS: MIRTAZAPINE TAB 15 MG TAB PO SCH (21:43)
[2021-04-04] MEDS: MONTELUKAST SODIUM 10 MG TABLET PO SCH (21:44)
[2021-04-05] MEDS: LOPERAMIDE HCL 2 MG CAP PO SCH ×6 (01:36→22:13)
[2021-04-05] MEDS: busPIRone 15 MG TAB PO SCH ×3 (07:23→22:14)
[2021-04-05] MEDS: CETIRIZINE HCL 10 MG TABLET PO SCH (07:23)
[2021-04-05] MEDS: FOLIC ACID 1 MG TAB PO SCH (07:23)
[2021-04-05] MEDS: GABAPENTIN 400 MG CAP PO SCH ×3 (07:23→22:15)
[2021-04-05] MEDS: PANCREAZE (LIPASE 10,500U) CAP PO SCH ×3 (07:23→17:27)
[2021-04-05] MEDS: PANTOprazole 40 MG TAB PO SCH (07:23)
[2021-04-05] MEDS: THIAMINE HCL 100 MG TAB PO SCH (07:24)
[2021-04-05] MEDS: FUROSEMIDE 20 MG TAB PO SCH (07:24)
[2021-04-05] MEDS: CYANOCOBALAMIN (VITAMIN B-12) 100 MCG TABLET PO SCH (07:24)
[2021-04-05] MEDS: PROPRANOLOL HCL 10 MG TAB PO SCH ×2 (07:24→22:19)
[2021-04-05] MEDS: FLUTICASONE PROPIONATE NA SPR 16 GM BTL SCH (07:25)
[2021-04-05] MEDS: MULTIVITAMIN TAB PO SCH (07:25)
[2021-04-05] MEDS: predniSONE 20 MG TAB PO SCH (07:25)
[2021-04-05] MEDS: FLUTICASONE/VILANTEROL 200/25MCG 14 PUFFS/INHALER INH SCH (07:25)
[2021-04-05] MEDS: buPROPion SR 150 MG TABCR PO SCH ×2 (08:33→22:13)
--- NOTE | 2021-04-05 16:25 | Hospitalist Progress Note ---
Date of Service April 05, 2021 Assessment & Plan (1) Alcoholic hepatitis: Plan: #. Alcoholic hepatitis: Presented with very high LFTs with obstructive feature-with total bilirubin of 26, AST 188, ALT 46 and alkaline phos 303 as of 03/22/2021; and alcohol intoxica tion Admitting CT abd/pelvis showed enlarged fatty liver with mild cirrhosis. Small amount of ascites. Gastro cotton farmer recommended to transfer to a tertiary care center to evaluate for for possible liver failure. [facility] GI specialist recommended keeping patient at [facility] and treatment for possible acetaminophen toxicity. Completed the acetylcysteine regimen Case discussed with Dr. Stark that recommended steroid therapy after r/o SBP. Will need GI follow up on discharge. We will continue steroid on discharge as per GI recommendation Awaiting placement-medically stable to be discharged; the patient wants to go to rehab in [place] with plan to go home in [place] when the rehab is over and he is better. He was strongly advised to have follow-up appointment with bridge manager fo r his alcoholic hepatitis and pancreatic mass. manager of supply chain is working on for possible placement-inpatient alcohol rehab Remains medically stable to be discharged Will be discharged home tomorrow #. Ascites: S/P paracentesis done where 950ml ascites fluid removed - neg for SBP, IV ATB DC'd, on PO prednisone x 28 days. S/P paracentesis done where 950ml ascites fluid removed, will follow ascites culture and gram stain REceived IV albumin Ascites Gram stain and culture were negative, no evidence of SBP Intravenous ceftriaxone was discontinued #. Alcohol intoxication History of alcohol abuse Alcohol level 348 on admission Previous history of alcohol withdrawal and DT in the past Continue Ativan and gabapentin alcohol withdrawn protocol Counseling on alcohol cessation Continue thiamine and Folic acid Consider inpatient alcohol rehab Continue monitor closely for sign of alcohol withdraw and DT No signs and/or symptoms of withdrawal except minimal tremors involving the outstretched hands Ativan as needed for anxiety, will not need any Ativan upon discharge. Resolved Will need to have rehab as advised #. Pancreatic Mass CT showed 3.7 cm heterogeneous pancreatic tail lesion. Gastro recommended outpatient EUS in 4 weeks to evaluate the panc lesion however this is likely a WON/necroma related to prior pancreatitis. Follow-up pancreatic MRI with contrast recommended for further evaluation. Will need to have GI follow-up as an outpatient #. Elevated lactic acid Resolved #. Electrolytes abnormalities Mostly related to alcohol abuse and poor oral intake Monitor and replace as appropriate #. Elevated INR Mostly related to acute alcohol hepatitis/ascites Received Vit K on admission Continue monitor INR and if above 2, will give vit K No sign of bleeding and will recheck INR #. Hypertension Fairly controlled, continue to monitor, continue home meds. DC amlodipine for concerns of leg swelling -use Lasix for few days, continue to monitor. Leg swelling improving, continue with Lasix 20 mg daily for few days. Leg swelling has resolved DVT px SCD due to elevate INR and history of intermittent epistaxis, patient encouraged to ambulate while in hospital every few hours. CODE STATUS FULL CODE Patient requesting for referral to be updated of plan of care. Ms. Wendy Matute, contact #[phone].-Has been communicating with her regularly Admission and Anticipated Discharge Date Admission Date: March 18, 2021 Subjective 03/22/2021 The patient was seen and examined in telemetry unit He remains pleasantly confused and has been requiring one-to-one sitter He is generally weak but does not have any acute distress 03/23/2021 The patient was seen and examined in telemetry unit He has been much better today and seem to be more rational He was advised that he needs to be in the hospital for a few days Remains extremely weak and lethargic 03/24/2021 The patient was seen and examined in telemetry unit He has been much better today No more confusion but remains extremely weak and tired He has had PT evaluation and recommended rehab He has been moving bowel normally 03/25/2021 The patient was seen and examined in telemetry unit He remains weak and lethargic Denies any other symptoms He is willing to go to rehab 03/26/2021 The patient was seen and examined in telemetry unit He remains weak and lethargic and has minimal tremors with outstretched hands Denies any other symptoms abdominal pain, nausea and or vomiting 03/27/2021 The patient was seen and examined in telemetry unit He has been feeling much better and denies any significant symptoms except weakness He wants to go to alcohol rehab facility and does not want to go home Discussed with the significant other who mentioned that it will depend on him to decide on that 04/04/2021 The patient was seen and examined in the medical floor He remains generally weak but denies any other symptoms Awaiting placement 04/05/2021 The patient was seen and examined in medical floor He remains generally weak but denies any other symptoms Awaiting placement-likely to be discharged tomorrow Review of Systems Review of Systems: All systems reviewed and are unremarkable except as noted below Constitutional: + malaise Gastrointestinal: + bloating; no abdominal pain, no nausea and no vomiting Physical Exam Physical Exam: Sitting at the edge of the bed without any apparent distress Constitutional: well developed, well nourished, + ill appearing and + obese ENMT: external ear and nose normal, oropharynx normal Neck: trachea midline, no thyromegaly Respiratory: + respiratory distress (Minimal distress at rest) Auscultation: + diminished lung sounds; no crackles (Minimal bibasilar crackles) Cardiovascular: Rate/Rhythm: regular rate and regular rhythm; not tachycardic Heart Sounds: normal S1 and normal S2; no murmur Extremities: + edema (1+ edema bilaterally) Gastrointestinal (Abdomen): Inspection/Auscultation: + abdomen distended and normal bowel sounds Percussion/Palpation: + abdomen tender (Mildly tender all over) and abdomen soft; no guarding Musculoskeletal: No acute arthritis in any joint Neurologic: Alert, awake and oriented x3. No tremors involving the outstretched hands. Generally weak Results & Data Results & Data ([facility]) Vital Signs (Past 12 Hours) Vital Signs Temp Pulse Resp BP Pulse Ox 04/05/21 07:22 37.3 C 76 16 116/75 93 Medications Administered Current Inpatient Medications Acetaminophen (Acetaminophen 325 Mg Tab) 325 mg PO Q6H PRN PRN Reason: Mild Pain Stop: 04/17/21 05:48 Last Admin: 04/04/21 08:07 Dose: 325 mg Documented by: Lipase/Protease/Amylase (Pancreaze (Lipase 10,500u) Cap) 1 cap PO TIDM [facility] Stop: 04/23/21 11:59 Last Admin: 04/05/21 12:31 Dose: 1 cap Documented by: Bupropion HCl (Bupropion Sr 150 Mg Tabcr) 150 mg PO BID [facility] Stop: 04/17/21 08:59 Last Admin: 04/05/21 08:33 Dose: 150 mg Documented by: Buspirone HCl (Buspirone 15 Mg Tab) 30 mg PO TID [facility] Stop: 04/17/21 08:59 Last Admin: 04/05/21 13:41 Dose: 30 mg Documented by: Cetirizine HCl (Cetirizine Hcl 10 Mg Tablet) 10 mg PO DAILY [facility] Stop: 04/17/21 08:59 Last Admin: 04/05/21 07:23 Dose: 10 mg Documented by: Clonidine HCl (Clonidine Hcl 0.1 Mg Tab) 0.1 mg PO BID PRN PRN Reason: for SBP above 170 Stop: 04/18/21 10:15 Cyanocobalamin (Cyanocobalamin (Vitamin B-12) 100 Mcg Tablet) 100 mcg PO DAILY [facility] Stop: 04/17/21 08:59 Last Admin: 04/05/21 07:24 Dose: 100 mcg Documented by: Fluticasone Propionate (Fluticasone Propionate Na Spr 16 Gm Btl) 2 sprays NA [facility] Stop: 04/17/21 08:59 Last Admin: 04/05/21 07:25 Dose: 2 sprays Documented by: Fluticasone/Vilanterol (Fluticasone/Vilanterol 200/25mcg 14 Puffs/Inhaler) 1 puffs INH DAILY [facility] Stop: 04/17/21 08:59 Last Admin: 04/05/21 07:25 Dose: 1 puffs Documented by: Folic Acid (Folic Acid 1 Mg Tab) 1 mg PO DAILY [facility] Stop: 04/17/21 08:59 Last Admin: 04/05/21 07:23 Dose: 1 mg Documented by: Furosemide (Furosemide 20 Mg Tab) 20 mg PO QAM [facility] Stop: 05/02/21 08:59 Last Admin: 04/05/21 07:24 Dose: 20 mg Documented by: Gabapentin (Gabapentin 400 Mg Cap) 400 mg PO TID [facility] Stop: 04/17/21 08:59 Last Admin: 04/05/21 13:41 Dose: 400 mg Documented by: Promethazine HCl 12.5 mg/ (Sodium Chloride) 50.5 mls @ 202 mls/hr IV Q6H PRN PRN Reason: Nausea And Vomiting Stop: 04/17/21 05:48 Loperamide HCl (Loperamide Hcl 2 Mg Cap) 2 mg PO Q4H [facility] Stop: 05/04/21 13:59 Last Admin: 04/05/21 13:41 Dose: 2 mg Documented by: Lorazepam (Lorazepam 0.5 Mg Tab) 0.25 mg PO Q8H PRN PRN Reason: Anxiety Stop: 04/23/21 10:16 Last Admin: 03/25/21 21:29 Dose: 0.25 mg Documented by: Mirtazapine (Mirtazapine Tab 15 Mg Tab) 15 mg PO HS [facility] Stop: 04/17/21 20:59 Last Admin: 04/04/21 21:43 Dose: 15 mg Documented by: Montelukast Sodium (Montelukast Sodium 10 Mg Tablet) 10 mg PO HS [facility] Stop: 04/17/21 20:59 Last Admin: 04/04/21 21:44 Dose: 10 mg Documented by: Multivitamins (Multivitamin Tab) 1 tab PO DAILY [facility] Stop: 04/17/21 08:59 Last Admin: 04/05/21 07:25 Dose: 1 tab Documented by: Pantoprazole Sodium (Pantoprazole 40 Mg Tab) 40 mg PO DAILY [facility] Stop: 04/17/21 08:59 Last Admin: 04/05/21 07:23 Dose: 40 mg Documented by: Prednisone (Prednisone 20 Mg Tab) 40 mg PO DAILY [facility] Stop: 04/21/21 08:59 Last Admin: 04/05/21 07:25 Dose: 40 mg Documented by: Propranolol HCl (Propranolol Hcl 10 Mg Tab) 10 mg PO BID [facility] Stop: 04/28/21 20:59 Last Admin: 04/05/21 07:24 Dose: 10 mg Documented by: Thiamine HCl (Thiamine Hcl 100 Mg Tab) 100 mg PO DAILY [facility] Stop: 04/17/21 08:59 Last Admin: 04/05/21 07:24 Dose: 100 mg Documented by: (1) Alcoholic hepatitis Ascites presence: with ascites Qualified Code(s): K70.11 - Alcoholic hepatitis with ascites
[2021-04-05] MEDS: MIRTAZAPINE TAB 15 MG TAB PO SCH (22:16)
[2021-04-05] MEDS: MONTELUKAST SODIUM 10 MG TABLET PO SCH (22:16)
[2021-04-06] MEDS: LOPERAMIDE HCL 2 MG CAP PO SCH ×4 (03:07→12:49)
[2021-04-06] MEDS: FLUTICASONE/VILANTEROL 200/25MCG 14 PUFFS/INHALER INH SCH (08:01)
[2021-04-06] MEDS: FLUTICASONE PROPIONATE NA SPR 16 GM BTL SCH (08:01)
[2021-04-06] MEDS: ACETAMINOPHEN 325 MG TAB PO PRN (08:02)
[2021-04-06] MEDS: PROPRANOLOL HCL 10 MG TAB PO SCH (08:03)
[2021-04-06] MEDS: THIAMINE HCL 100 MG TAB PO SCH (08:03)
[2021-04-06] MEDS: PANTOprazole 40 MG TAB PO SCH (08:04)
[2021-04-06] MEDS: predniSONE 20 MG TAB PO SCH (08:04)
[2021-04-06] MEDS: FOLIC ACID 1 MG TAB PO SCH (08:05)
[2021-04-06] MEDS: MULTIVITAMIN TAB PO SCH (08:05)
[2021-04-06] MEDS: CYANOCOBALAMIN (VITAMIN B-12) 100 MCG TABLET PO SCH (08:06)
[2021-04-06] MEDS: FUROSEMIDE 20 MG TAB PO SCH (08:06)
[2021-04-06] MEDS: CETIRIZINE HCL 10 MG TABLET PO SCH (08:06)
[2021-04-06] MEDS: buPROPion SR 150 MG TABCR PO SCH (08:07)
[2021-04-06] MEDS: busPIRone 15 MG TAB PO SCH ×2 (08:08→12:48)
[2021-04-06] MEDS: GABAPENTIN 400 MG CAP PO SCH ×2 (08:08→12:49)
[2021-04-06] MEDS: PANCREAZE (LIPASE 10,500U) CAP PO SCH ×2 (08:09→12:49)
--- NOTE | 2021-04-06 10:08 | Hospitalist Progress Note ---
Date of Service April 06, 2021 Assessment & Plan (1) Alcoholic hepatitis: Plan: #. Alcoholic hepatitis: Presented with very high LFTs with obstructive feature-with total bilirubin of 26, AST 188, ALT 46 and alkaline phos 303 as of 03/22/2021; and alcohol intoxication Admitting CT abd/pelvis showed enlarged fatty liver with mild cirrhosis. Small amount of ascites. 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 [facility] GI specialist recommended keeping patient at [facility] and treatment for possible acetaminophen toxicity. Completed the acetylcysteine regimen Case discussed with Dr. Stark that recommended steroid therapy after r/o SBP. Will need GI follow up on discharge. We will continue steroid on discharge as per GI recommendation He was strongly advised to have follow-up appointment with electron beam welding machine operator fo r his alcoholic hepatitis and pancreatic mass. manager medicare is working on for possible placement-inpatient alcohol rehab Remains medically stable to be discharged No inpatient alcohol rehab facility available to accept him manager medicare discussed the case with his significant other and himself and both were agreeable for him to go home Strongly advised to quit drinking and keep appointments with primary care physician and make an appointment with electron beam welding machine operator as soon as possible for proposed tests His latest LFTs are as follows: Total bilirubin 17.4 but improved from highest of 24.4, AST 192 remains high, ALT remains high ,alkaline phos remains high as well at 284, albumin 1.8 and INR 1.4 #. Ascites: S/P paracentesis done where 950ml ascites fluid removed - neg for SBP, IV ATB DC'd, on PO prednisone x 28 days. S/P paracentesis done where 950ml ascites fluid removed, will follow ascites c ulture and gram stain REceived IV albumin Ascites Gram stain and culture were negative, no evidence of SBP Intravenous ceftriaxone was discontinued No signs and or symptoms of tense ascites #. Alcohol intoxication History of alcohol abuse Alcohol level 348 on admission Previous history of alcohol withdrawal and DT in the past Continue Ativan and gabapentin alcohol withdrawn protocol Counseling on alcohol cessation Continue thiamine and Folic acid Consider inpatient alcohol rehab Continue monitor closely for sign of alcohol withdraw and DT No signs and/or symptoms of withdrawal except minimal tremors involving the outstretched hands Ativan as needed for anxiety, will not need any Ativan upon discharge. No withdrawal symptoms and has been ambulating well Was strongly advised to have follow-up with outpatient alcohol Anonymous group #. Pancreatic Mass CT showed 3.7 cm heterogeneous pancreatic tail lesion. Gastro recommended outpatient EUS in 4 weeks to evaluate the panc lesion however this is likely a WON/necroma related to prior pancreatitis. Follow-up pancreatic MRI with contrast recommended for further evaluation. Will need to have GI follow-up as an outpatient He was strongly advised to make an appointment with his electron beam welding machine operator for follow-up as advised by gastroenterology service #. Elevated lactic acid Resolved #. Electrolytes abnormalities Mostly related to alcohol abuse and poor oral intake Monitor and replace as appropriate #. Elevated INR Mostly related to acute alcohol hepatitis/ascites Received Vit K on admission Continue monitor INR and if above 2, will give vit K No sign of bleeding and will recheck INR #. Hypertension Fairly controlled, continue to monitor, continue home meds. DC amlodipine for concerns of leg swelling -use Lasix for few days, continue to monitor. Leg swelling improving, continue with Lasix 20 mg daily for few days. Leg swelling has resolved DVT px SCD due to elevate INR and history of intermittent epistaxis, patient encouraged to ambulate while in hospital every few hours. CODE STATUS FULL CODE Patient requesting for referral to be updated of plan of care. Ms. Wendy Matute, contact #[phone].-Has been communicating with her regularly Admission and Anticipated Discharge Date Admission Date: March 18, 2021 Subjective 03/22/2021 The patient was seen and examined in telemetry unit He remains pleasantly confused and has been requiring one-to-one sitter He is generally weak but does not have any acute distress 03/23/2021 The patient was seen and examined in telemetry unit He has been much better today and seem to be more rational He was advised that he needs to be in the hospital for a few days Remains extremely weak and lethargic 03/24/2021 The patient was seen and examined in telemetry unit He has been much better today No more confusion but remains extremely weak and tired He has had PT evaluation and recommended rehab He has been moving bowel normally 03/25/2021 The patient was seen and examined in telemetry unit He remains weak and lethargic Denies any other symptoms He is willing to go to rehab 03/26/2021 The patient was seen and examined in telemetry unit He remains weak and lethargic and has minimal tremors with outstretched hands Denies any other symptoms abdominal pain, nausea and or vomiting 03/27/2021 The patient was seen and examined in telemetry unit He has been feeling much better and denies any significant symptoms except weakness He wants to go to alcohol rehab facility and does not want to go home Discussed with the significant other who mentioned that it will depend on him to decide on that 04/04/2021 The patient was seen and examined in the medical floor He remains generally weak but denies any other symptoms Awaiting placement 04/05/2021 The patient was seen and examined in medical floor He remains generally weak but denies any other symptoms Awaiting placement-likely to be discharged tomorrow 04/06/2021 The patient was seen and examined in medical floor He remained stable and denies any significant symptoms today Denies any dizziness and/or tremors, denies any abdominal pain, nausea and or vomiting and having regular bowel movement Has been ambulating well in the room and in the hallway Review of Systems Review of Systems: All systems reviewed and are unremarkable except as noted below Constitutional: + malaise Gastrointestinal: + bloating; no abdominal pain, no nausea and no vomiting Physical Exam Physical Exam: Sitting at the edge of the bed without any apparent distress Constitutional: well developed, well nourished, + ill appearing and + obese ENMT: external ear and nose normal, oropharynx normal Neck: trachea midline, no thyromegaly Respiratory: + respiratory distress (Minimal distress at rest) Auscultation: + diminished lung sounds; no crackles (Minimal bibasilar crackles) Cardiovascular: Rate/Rhythm: regular rate and regular rhythm; not tachycardic Heart Sounds: normal S1 and normal S2; no murmur Extremities: + edema (1+ edema bilaterally) Gastrointestinal (Abdomen): Inspection/Auscultation: + abdomen distended and normal bowel sounds Percussion/Palpation: + abdomen tender (Mildly tender all over) and abdomen soft; no guarding Musculoskeletal: No acute arthritis in any joint Neurologic: Alert, awake and oriented x3. Generally weak but no focal neuro deficit. Minimal tremors involving the outstretched hands Results & Data Results & Data ([facility]) Vital Signs (Past 12 Hours) Vital Signs Temp Pulse Pulse Resp BP BP Pulse Ox 04/06/21 08:00 68 131/90 04/06/21 06:55 36.9 C 65 18 108/68 94 04/05/21 22:24 36.8 C 73 16 121/82 95 Medications Administered Current Inpatient Medications Acetaminophen (Acetaminophen 325 Mg Tab) 325 mg PO Q6H PRN PRN Reason: Mild Pain Stop: 04/17/21 05:48 Last Admin: 04/06/21 08:02 Dose: 325 mg Documented by: Lipase/Protease/Amylase (Pancreaze (Lipase 10,500u) Cap) 1 cap PO TIDM ELIZABETH Stop: 04/23/21 11:59 Last Admin: 04/06/21 12:49 Dose: 1 cap Documented by: Bupropion HCl (Bupropion Sr 150 Mg Tabcr) 150 mg PO BID ELIZABETH Stop: 04/17/21 08:59 Last Admin: 04/06/21 08:07 Dose: 150 mg Documented by: Buspirone HCl (Buspirone 15 Mg Tab) 30 mg PO TID ELIZABETH Stop: 04/17/21 08:59 Last Admin: 04/06/21 12:48 Dose: 30 mg Documented by: Cetirizine HCl (Cetirizine Hcl 10 Mg Tablet) 10 mg PO DAILY ELIZABETH Stop: 04/17/21 08:59 Last Admin: 04/06/21 08:06 Dose: 10 mg Documented by: Clonidine HCl (Clonidine Hcl 0.1 Mg Tab) 0.1 mg PO BID PRN PRN Reason: for SBP above 170 Stop: 04/18/21 10:15 Cyanocobalamin (Cyanocobalamin (Vitamin B-12) 100 Mcg Tablet) 100 mcg PO DAILY ELIZABETH Stop: 04/17/21 08:59 Last Admin: 04/06/21 08:06 Dose: 100 mcg Documented by: Fluticasone Propionate (Fluticasone Propionate Na Spr 16 Gm Btl) 2 sprays NA DAILY ELIZABETH Stop: 04/17/21 08:59 Last Admin: 04/06/21 08:01 Dose: 2 sprays Documented by: Fluticasone/Vilanterol (Fluticasone/Vilanterol 200/25mcg 14 Puffs/Inhaler) 1 puffs INH DAILY ELIZABETH Stop: 04/17/21 08:59 Last Admin: 04/06/21 08:01 Dose: 1 puffs Documented by: Folic Acid (Folic Acid 1 Mg Tab) 1 mg PO DAILY ELIZABETH Stop: 04/17/21 08:59 Last Admin: 04/06/21 08:05 Dose: 1 mg Documented by: Furosemide (Furosemide 20 Mg Tab) 20 mg PO QAM ELIZABETH Stop: 05/02/21 08:59 Last Admin: 04/06/21 08:06 Dose: 20 mg Documented by: Gabapentin (Gabapentin 400 Mg Cap) 400 mg PO TID ELIZABETH Stop: 04/17/21 08:59 Last Admin: 04/06/21 12:49 Dose: 400 mg Documented by: Promethazine HCl 12.5 mg/ (Sodium Chloride) 50.5 mls @ 202 mls/hr IV Q6H PRN PRN Reason: Nausea And Vomiting Stop: 04/17/21 05:48 Loperamide HCl (Loperamide Hcl 2 Mg Cap) 2 mg PO Q4H ELIZABETH Stop: 05/04/21 13:59 Last Admin: 04/06/21 12:49 Dose: 2 mg Documented by: Lorazepam (Lorazepam 0.5 Mg Tab) 0.25 mg PO Q8H PRN PRN Reason: Anxiety Stop: 04/23/21 10:16 Last Admin: 03/25/21 21:29 Dose: 0.25 mg Documented by: Mirtazapine (Mirtazapine Tab 15 Mg Tab) 15 mg PO HS ELIZABETH Stop: 04/17/21 20:59 Last Admin: 04/05/21 22:16 Dose: 15 mg Documented by: Montelukast Sodium (Montelukast Sodium 10 Mg Tablet) 10 mg PO HS ELIZABETH Stop: 04/17/21 20:59 Last Admin: 04/05/21 22:16 Dose: 10 mg Documented by: Multivitamins (Multivitamin Tab) 1 tab PO DAILY ELIZABETH Stop: 04/17/21 08:59 Last Admin: 04/06/21 08:05 Dose: 1 tab Documented by: Pantoprazole Sodium (Pantoprazole 40 Mg Tab) 40 mg PO DAILY ELIZABETH Stop: 04/17/21 08:59 Last Admin: 04/06/21 08:04 Dose: 40 mg Documented by: Prednisone (Prednisone 20 Mg Tab) 40 mg PO DAILY ELIZABETH Stop: 04/21/21 08:59 Last Admin: 04/06/21 08:04 Dose: 40 mg Documented by: Propranolol HCl (Propranolol Hcl 10 Mg Tab) 10 mg PO BID ELIZABETH Stop: 04/28/21 20:59 Last Admin: 04/06/21 08:03 Dose: 10 mg Documented by: Thiamine HCl (Thiamine Hcl 100 Mg Tab) 100 mg PO DAILY ELIZABETH Stop: 04/17/21 08:59 Last Admin: 04/06/21 08:03 Dose: 100 mg Documented by: (1) Alcoholic hepatitis Ascites presence: with ascites Qualified Code(s): K70.11 - Alcoholic hepatitis with ascites
--- NOTE | 2021-04-06 13:44 | Discharge Summary ---
Date of Service April 06, 2021 Admission HPI Per Admitting Provider History obtained from patient and records. Medical history significant for HTN, fatty liver as per patient, history pancreatitis/pancreatic necrosis as per patient, alcohol abuse, asthma, mood disorder, past tobacco abuse. Patient is a resident of [place] who is in town for the week with his girlfriend. 3 [facility] ER visits last year for alcoholic intoxication. 1 month history of increasing abdominal distention/fluid retention, intermittent achy abdominal pain/hiccuping, no fever, no chills. Alternating constipation/diarrhea. Skin noted to be yellow and urine noted to be orange by patient. Patient denies headache, chest pain, S OB. Intermittent epistaxis episodes at home. Patient denies black/bloody stools. Stool somewhat pale as per patient. Patient denies inordinate Tylenol intake. EMS summoned to patient's home because of increased agitation as per account. Patient brought to the ER for evaluation. GI specialist iron cutter recommended transfer to tertiary center for possible liver failure. [facility] [place] specialist recommended keeping patient at [facility] and treatment for possible acetaminophen toxicity. Acetadote protocol initiated at the ER. 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 Admission Exam Per Admitting Provider hysical Exam: GENERAL: Slightly uncomfortable, pleasant, obese, episodic hiccuping, alcoholic fetor, no respiratory distress SKIN: Jaundice,, warm, abrasions over upper and lower extremities HEENT: Pale palpebral conjunctivae, no ptosis, dry buccal mucosa NECK : Supple, short neck, no tenderness CHEST : Decreased breath sounds,, no tenderness HEART : RRR, no obvious murmurs ABDOMEN: distention, fluid wave, central abdominal tenderness EXTREMITIES : Minimal LE swelling, no LE tenderness, no other conspicuous deformities noted NEUROLOGIC : Coherent, no facial asymmetry, no other gross focality Principal Diagnosis Alcoholic hepatitis, pancreatic mass, ascites status post paracentesis, alcohol intoxication-resolved, hypertension Discharge Exam Constitutional well developed, well nourished, + ill appearing and + obese ENMT external ear and nose normal, oropharynx normal Neck trachea midline, no thyromegaly Respiratory + respiratory distress (Minimal distress at rest) Auscultation: + diminished lung sounds; no crackles (Minimal bibasilar crackles) Cardiovascular Rate/Rhythm: regular rate and regular rhythm; not tachycardic Heart Sounds: normal S1 and normal S2; no murmur Extremities: + edema (1+ edema bilaterally) Gastrointestinal (Abdomen) Inspection/Auscultation: + abdomen distended and normal bowel sounds Percussion/Palpation: + abdomen tender (Mildly tender all over) and abdomen soft; no guarding Discharge Data Allergies Allergy/AdvReac Type Severity Reaction Status Date / Time morphine AdvReac Unknown Verified 02/08/20 06:21 Consultations 03/18/21 02:32 ED Decision to Admit Stat 03/18/21 05:26 Consult Gastroenterology Routine 03/30/21 22:03 Consult Patient Rep [Consult Patient Services] Routine Ordered Studies 03/18/21 03:45 CT abd pelvis IV con only Urgent 03/19/21 12:21 US paracentesis abd w/image Routine 03/30/21 20:16 US venous doppler LE RT Urgent Hospital Course (1) Alcoholic hepatitis: #. Alcoholic hepatitis: Presented with very high LFTs with obstructive feature-with total bilirubin of 26, AST 188, ALT 46 and alkaline phos 303 as of 03/22/2021; and alcohol intoxication Admitting CT abd/pelvis showed enlarged fatty liver with mild cirrhosis. Small amount of ascites. Gastro iron cutter recommended to transfer to a tertiary care center to evaluate for for possible liver failure. [facility] [place] specialist recommended keeping patient at [facility] and treatment for possible acetaminophen toxicity. Completed the acetylcysteine regimen Case discussed with Dr. Stark that recommended steroid therapy after r/o SBP. Will need GI follow up on discharge. We will continue steroid on discharge as per GI recommendation He was strongly advised to have follow-up appointment with wire wrapping machine operator fo r his alcoholic hepatitis and pancreatic mass. 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 is working on for possible placement-inpatient alcohol rehab Remains medically stable to be discharged No inpatient alcohol rehab facility available to accept him 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 discussed the case with his significant other and himself and both were agreeable for him to go home Strongly advised to quit drinking and keep appointments with primary care physician and make an appointment with wire wrapping machine operator as soon as possible for proposed tests His latest LFTs are as follows: Total bilirubin 17.4 but improved from highest of 24.4, AST 192 remains high, ALT remains high ,alkaline phos remains high as well at 284, albumin 1.8 and INR 1.4 #. Ascites: S/P paracentesis done where 950ml ascites fluid removed - neg for SBP, IV ATB DC'd, on PO prednisone x 28 days. S/P paracentesis done where 950ml ascites fluid removed, will follow ascites culture and gram stain REceived IV albumin Ascites Gram stain and culture were negative, no evidence of SBP Intravenous ceftriaxone was discontinued No signs and or symptoms of tense ascites #. Alcohol intoxication History of alcohol abuse Alcohol level 348 on admission Previous history of alcohol withdrawal and DT in the past Continue Ativan and gabapentin alcohol withdrawn protocol Counseling on alcohol cessation Continue thiamine and Folic acid Consider inpatient alcohol rehab Continue monitor closely for sign of alcohol withdraw and DT No signs and/or symptoms of withdrawal except minimal tremors involving the outstretched hands Ativan as needed for anxiety, will not need any Ativan upon discharge. No withdrawal symptoms and has been ambulating well Was strongly advised to have follow-up with outpatient alcohol Anonymous group #. Pancreatic Mass CT showed 3.7 cm heterogeneous pancreatic tail lesion. Gastro recommended outpatient EUS in 4 weeks to evaluate the panc lesion however this is likely a WON/necroma related to prior pancreatitis. Follow-up pancreatic MRI with contrast recommended for further evaluation. Will need to have GI follow-up as an outpatient He was strongly advised to make an appointment with his wire wrapping machine operator for follow-up as advised by gastroenterology service #. Elevated lactic acid Resolved #. Electrolytes abnormalities Mostly related to alcohol abuse and poor oral intake Monitor and replace as appropriate #. Elevated INR Mostly related to acute alcohol hepatitis/ascites Received Vit K on admission Continue monitor INR and if above 2, will give vit K No sign of bleeding and will recheck INR #. Hypertension Fairly controlled, continue to monitor, continue home meds. DC amlodipine for concerns of leg swelling -use Lasix for few days, continue to monitor. Leg swelling improving, continue with Lasix 20 mg daily for few days. Leg swelling has resolved DVT px SCD due to elevate INR and history of intermittent epistaxis, patient encouraged to ambulate while in hospital every few hours. CODE STATUS FULL CODE Patient requesting for referral to be updated of plan of care. Ms. Wendy Matute, contact #[phone].-Has been communicating with her regularly Total Time Total Time Spent Total Time Spent (In Minutes): 45 minutes Discharge Plan Discharge Items Patient Disposition: Home - Self-Care Reason For Visit: HYPONATREMIA, ABD PAIN Discharge Diagnosis: Alcoholic hepatitis, pancreatic mass, ascites status post paracentesis, alcohol intoxication-resolved, hypertension Condition on Discharge: Fair Activity: Resume your previous activity Non-emergency contact: Primary Care Provider Call non-emergency contact if: you have any medication questions and your symptoms worsen Follow-up/Referrals: PCP,NO [Primary Care Provider] - (Please make an appointment with your primary care physician within 1 week) Diet: Heart Healthy and Low Sodium (2gm) Fluids: 1500ml (6 cups) Addtl Attending Provider Instructions: Please take extreme precautions to avoid falls Absolutely no drinking of alcohol-continue with outpatient rehab Please make an appointment with your wire wrapping machine operator within next few weeks Take your medications as advised Pending Studies at Discharge: No Stand-Alone Forms: My [employer], Smoking Cessation Medications and DC Order Prescriptions: New furosemide 20 mg Tablet 20 mg PO QAM 30 Days Qty: 30 RF: 0 prednisone 10 mg tablet 10 mg PO UD Qty: 60 RF: 0 Continued gabapentin 400 mg capsule 400 mg PO TID RF: 0 benzonatate 100 mg capsule 100 mg PO TID PRN (Reason: Cough) RF: 0 bupropion HCl (smoking deter) 150 mg tablet extended release 12 hr 150 mg PO BID RF: 0 thiamine HCl (vitamin B1) 100 mg tablet 100 mg PO DAILY RF: 0 buspirone 30 mg Tablet 30 mg PO TID RF: 0 montelukast 10 mg tablet 10 mg PO HS RF: 0 cyanocobalamin (vitamin B-12) 100 mcg Tablet 100 mcg PO DAILY RF: 0 cetirizine 10 mg Tablet 10 mg PO DAILY RF: 0 magnesium oxide 400 mg (241.3 mg magnesium) tablet 400 mg PO BID RF: 0 folic acid 1 mg tablet 1 mg PO DAILY RF: 0 albuterol sulfate 90 mcg/actuation HFA aerosol inhaler 1 puff INHALATION Q6 PRN (Reason: Shortness Of Breath Or Wheezing) RF: 0 cholecalciferol (vitamin D3) 50 mcg (2,000 unit) Capsule 50 mcg PO DAILY RF: 0 multivitamin [Daily-Ricci] Tablet 1 tab PO DAILY RF: 0 cyclobenzaprine 10 mg tablet 10 mg PO Q8 PRN (Reason: Muscle Spasm) RF: 0 fluticasone propion-salmeterol 250-50 mcg/dose blister with device 1 ea INHALATION Q12 RF: 0 propranolol 10 mg Tablet 10 mg PO DAILY RF: 0 pantoprazole 40 mg Tablet,Delayed Release (Dr/Ec) 40 mg PO DAILY RF: 0 fluticasone propionate 50 mcg/actuation spray,suspension 2 spray INTRANASAL DAILY RF: 0 Creon 12,000-38,000 -60,000 unit Capsule,Delayed Release(Dr/Ec) 1 cap PO USEASDIRECTD RF: 0 Changed mirtazapine 15 mg tablet 15 mg PO HS Qty: 0 RF: 0 Discontinued hydroxyzine pamoate 50 mg capsule 50 mg PO TID RF: 0 No Action amlodipine 10 mg tablet 10 mg PO DAILY RF: 0 Discharge Orders: Discharge Order (Routine); Ordered 04/06/21 Ordered By: Melani Jackson Admission Data Admit Date/Time: 03/18/21 03:50 Attending Provider: Melani Jackson Admit Provider: Arpan Elmore Primary Care Provider: PCP,NO Other Providers: Shavon Chapa ; Arpan Elmore ; Joe Melissa ; Landy Torres ; Pamella Landa ; Renee Edwards ; Dennis Timmons ; Umer Soto ; Ny Chandler ; Kwesi Olivarez ; Melody Abreu ; Brigitte Roth ; Zari Arenas ; Nathaly Olivares ; Jeannette Stark Other Interventions: Discharge Summary Assessment (RN) Last Done: 04/06/21 12:53
--- NOTE | 2021-04-07 07:23 | Discharge Summary ---
Date of Service April 07, 2021 Admission HPI Per Admitting Provider History obtained from patient and records. Medical history significant for HTN, fatty liver as per patient, history pancreatitis/pancreatic necrosis as per patient, alcohol abuse, asthma, mood disorder, past tobacco abuse. Patient is a resident of [place] who is in town for the week with his girlfriend. 3 [facility] ER visits last year for alcoholic intoxication. 1 month history of increasing abdominal distention/fluid retention, intermittent achy abdominal pain/hiccuping, no fever, no chills. Alternating constipation/diarrhea. Skin noted to be yellow and urine noted to be orange by patient. Patient denies headache, chest pain, S OB. Intermittent epistaxis episodes at home. Patient denies black/bloody stools. Stool somewhat pale as per patient. Patient denies inordinate Tylenol intake. EMS summoned to patient's home because of increased agitation as per account. Patient brought to the ER for evaluation. GI specialist philosophy and religion instructor recommended transfer to tertiary center for possible [place] failure[place] [facility] [place] keeping patient [place] [facility] and treatment for possible acetaminophen toxicity. Acetadote protocol initiated at the ER. 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 Admission Exam Per Admitting Provider Physical Exam: GENERAL: Slightly uncomfortable, pleasant, obese, episodic hiccuping, alcoholic fetor, no respiratory distress SKIN: Jaundice,, warm, abrasions over upper and lower extremities HEENT: Pale palpebral conjunctivae, no ptosis, dry buccal mucosa NECK : Supple, short neck, no tenderness CHEST : Decreased breath sounds,, no tenderness HEART : RRR, no obvious murmurs ABDOMEN: distention, fluid wave, central abdominal tenderness EXTREMITIES : Minimal LE swelling, no LE tenderness, no other conspicuous deformities noted NEUROLOGIC : Coherent, no facial asymmetry, no other gross focality Principal Diagnosis Alcoholic hepatitis, pancreatic mass, ascites status post paracentesis, alcohol intoxication-resolved, hypertension Discharge Exam Constitutional well developed, well nourished, + ill appearing and + obese ENMT external ear and nose normal, oropharynx normal Neck trachea midline, no thyromegaly Respiratory + respiratory distress (Minimal distress at rest) Auscultation: + diminished lung sounds; no crackles (Minimal bibasilar crackles) Cardiovascular Rate/Rhythm: regular rate and regular rhythm; not tachycardic Heart Sounds: normal S1 and normal S2; no murmur Extremities: + edema (1+ edema bilaterally) Gastrointestinal (Abdomen) Inspection/Auscultation: + abdomen distended and normal bowel sounds Percussion/Palpation: + abdomen tender (Mildly tender all over) and abdomen soft; no guarding Discharge Data Allergies Allergy/AdvReac Type Severity Reaction Status Date / Time morphine AdvReac Unknown Verified 02/08/20 06:21 Consultations 03/18/21 02:32 ED Decision to Admit Stat 03/18/21 05:26 Consult Gastroenterology Routine 03/30/21 22:03 Consult Patient Rep [Consult Patient Services] Routine Ordered Studies 03/18/21 03:45 CT abd pelvis IV con only Urgent 03/19/21 12:21 US paracentesis abd w/image Routine 03/30/21 20:16 US venous doppler LE RT Urgent Hospital Course (1) Alcoholic hepatitis: #. Alcoholic hepatitis: Presented with very high LFTs with obstructive feature-with total bilirubin of 26, AST 188, ALT 46 and alkaline phos 303 as of 03/22/2021; and alcohol intoxication Admitting CT abd/pelvis showed enlarged fatty liver with mild cirrhosis. Small amount of ascites. Gastro philosophy and religion instructor recommended to transfer to a tertiary care center to evaluate for for possible liver failure[place] [facility] keeping patient at [facility] and treatment for possible acetaminophen toxicity. Completed the acetylcysteine regimen Case discussed with Dr. Stark that recommended steroid therapy after r/o SBP. Will need GI follow up on discharge. We will continue steroid on discharge as per GI recommendation He was strongly advised to have follow-up appointment with warehouse operator fo r his alcoholic hepatitis and pancreatic mass. recycling operations manager is working on for possible placement-inpatient alcohol rehab Remains medically stable to be discharged No inpatient alcohol rehab facility available to accept him recycling operations manager discussed the case with his significant other and himself and both were agreeable for him to go home Strongly advised to quit drinking and keep appointments with primary care physician and make an appointment with warehouse operator as soon as possible for proposed tests His latest LFTs are as follows: Total bilirubin 17.4 but improved from highest of 24.4, AST 192 remains high, ALT remains high ,alkaline phos remains high as well at 284, albumin 1.8 and INR 1.4 #. Ascites: S/P paracentesis done where 950ml ascites fluid removed - neg for SBP, IV ATB DC'd, on PO prednisone x 28 days. S/P paracentesis done where 950ml ascites fluid removed, will follow ascites culture and gram stain REceived IV albumin Ascites Gram stain and culture were negative, no evidence of SBP Intravenous ceftriaxone was discontinued No signs and or symptoms of tense ascites #. Alcohol intoxication History of alcohol abuse Alcohol level 348 on admission Previous history of alcohol withdrawal and DT in the past Continue Ativan and gabapentin alcohol withdrawn protocol Counseling on alcohol cessation Continue thiamine and Folic acid Consider inpatient alcohol rehab Continue monitor closely for sign of alcohol withdraw and DT No signs and/or symptoms of withdrawal except minimal tremors involving the outstretched hands Ativan as needed for anxiety, will not need any Ativan upon discharge. No withdrawal symptoms and has been ambulating well Was strongly advised to have follow-up with outpatient alcohol Anonymous group #. Pancreatic Mass CT showed 3.7 cm heterogeneous pancreatic tail lesion. Gastro recommended outpatient EUS in 4 weeks to evaluate the panc lesion however this is likely a WON/necroma related to prior pancreatitis. Follow-up pancreatic MRI with contrast recommended for further evaluation. Will need to have GI follow-up as an outpatient He was strongly advised to make an appointment with his warehouse operator for follow-up as advised by gastroenterology service #. Elevated lactic acid Resolved #. Electrolytes abnormalities Mostly related to alcohol abuse and poor oral intake Monitor and replace as appropriate #. Elevated INR Mostly related to acute alcohol hepatitis/ascites Received Vit K on admission Continue monitor INR and if above 2, will give vit K No sign of bleeding and will recheck INR #. Hypertension Fairly controlled, continue to monitor, continue home meds. DC amlodipine for concerns of leg swelling -use Lasix for few days, continue to monitor. Leg swelling improving, continue with Lasix 20 mg daily for few days. Leg swelling has resolved DVT px SCD due to elevate INR and history of intermittent epistaxis, patient encouraged to ambulate while in hospital every few hours. CODE STATUS FULL CODE Patient requesting for referral to be updated of plan of care. Ms. Wendy Matute, contact #[phone].-Has been communicating with her regularly Total Time Total Time Spent Total Time Spent (In Minutes): 35 minutes Discharge Plan Discharge Items Patient Disposition: Home - Self-Care Reason For Visit: HYPONATREMIA, ABD PAIN Discharge Diagnosis: Alcoholic hepatitis, pancreatic mass, ascites status post paracentesis, alcohol intoxication-resolved, hypertension Condition on Discharge: Fair Activity: Resume your previous activity Non-emergency contact: Primary Care Provider Call non-emergency contact if: you have any medication questions and your symptoms worsen Follow-up/Referrals: PCP,NO [Primary Care Provider] - (Please make an appointment with your primary care physician within 1 week) Diet: Heart Healthy and Low Sodium (2gm) Fluids: 1500ml (6 cups) Addtl Attending Provider Instructions: Please take extreme precautions to avoid falls Absolutely no drinking of alcohol-continue with outpatient rehab Please make an appointment with your warehouse operator within next few weeks Take your medications as advised Pending Studies at Discharge: No Stand-Alone Forms: My [employer], Smoking Cessation Medications and DC Order Prescriptions: New furosemide 20 mg Tablet 20 mg PO QAM 30 Days Qty: 30 RF: 0 prednisone 10 mg tablet 10 mg PO UD Qty: 60 RF: 0 Continued gabapentin 400 mg capsule 400 mg PO TID RF: 0 benzonatate 100 mg capsule 100 mg PO TID PRN (Reason: Cough) RF: 0 bupropion HCl (smoking deter) 150 mg tablet extended release 12 hr 150 mg PO BID RF: 0 thiamine HCl (vitamin B1) 100 mg tablet 100 mg PO DAILY RF: 0 buspirone 30 mg Tablet 30 mg PO TID RF: 0 montelukast 10 mg tablet 10 mg PO HS RF: 0 cyanocobalamin (vitamin B-12) 100 mcg Tablet 100 mcg PO DAILY RF: 0 cetirizine 10 mg Tablet 10 mg PO DAILY RF: 0 magnesium oxide 400 mg (241.3 mg magnesium) tablet 400 mg PO BID RF: 0 folic acid 1 mg tablet 1 mg PO DAILY RF: 0 albuterol sulfate 90 mcg/actuation HFA aerosol inhaler 1 puff INHALATION Q6 PRN (Reason: Shortness Of Breath Or Wheezing) RF: 0 cholecalciferol (vitamin D3) 50 mcg (2,000 unit) Capsule 50 mcg PO DAILY RF: 0 multivitamin [Daily-Ricci] Tablet 1 tab PO DAILY RF: 0 cyclobenzaprine 10 mg tablet 10 mg PO Q8 PRN (Reason: Muscle Spasm) RF: 0 fluticasone propion-salmeterol 250-50 mcg/dose blister with device 1 ea INHALATION Q12 RF: 0 propranolol 10 mg Tablet 10 mg PO DAILY RF: 0 pantoprazole 40 mg Tablet,Delayed Release (Dr/Ec) 40 mg PO DAILY RF: 0 fluticasone propionate 50 mcg/actuation spray,suspension 2 spray INTRANASAL DAILY RF: 0 Creon 12,000-38,000 -60,000 unit Capsule,Delayed Release(Dr/Ec) 1 cap PO USEASDIRECTD RF: 0 Changed mirtazapine 15 mg tablet 15 mg PO HS Qty: 0 RF: 0 Discontinued amlodipine 10 mg tablet 10 mg PO DAILY RF: 0 hydroxyzine pamoate 50 mg capsule 50 mg PO TID RF: 0 Discharge Orders: Discharge Order (Routine); Ordered 04/06/21 Ordered By: Melani Johnson/Other Patient Handouts: Hyponatremia Dc Admission Data Admit Date/Time: 03/18/21 03:50 Attending Provider: Melani Jackson Admit Provider: Arpan Elmore Primary Care Provider: PCP,NO Other Providers: Shavon Chapa ; Arpan Elmore ; Joe Melissa ; Landy Torres ; Pamella Landa ; Renee Edwards ; Dennis Timmons ; Umer Soto ; Ny Chandler ; Kwesi Olivarez ; Melody Abreu ; Brigitte Roth ; Zari Arenas ; Nathaly Olivares ; Jeannette Stark Other Interventions: Discharge Summary Assessment (RN) Last Done: 04/06/21 12:53
== END 2021-04-06 15:32 | disposition home or self-care (01) | DRG 433 ==
LOC: ED 23:15 → 2N 03-18 03:50 → SUATTDRO 03-18 03:50 → 2N 03-18 05:46 → 2S 03-18 23:27 → 3N 04-01 18:53
DX: F10.229 Alcohol dependence with intoxication, unspecified; E87.1 Hypo-osmolality and hyponatremia; K70.11 Alcoholic hepatitis with ascites; I10 Essential (primary) hypertension; F10.230 Alcohol dependence with withdrawal, uncomplicated; K86.89 Other specified diseases of pancreas; D68.9 Coagulation defect, unspecified; E78.1 Pure hyperglyceridemia; K72.90 Hepatic failure, unspecified without coma; E86.1 Hypovolemia; K74.60 Unspecified cirrhosis of liver